=== PATIENT | female | born 1970 | race Caucasian/White ===

== ENCOUNTER 2019-08-24 11:53 | Observation (INO) | payer OTHER, SELFPAY ==
[2019-08-24] VITALS (18 sets, daily range): BP systolic 85–123; BP diastolic 55–73; PULSE 61–83; RESP 9–26; TEMP 36–36.4; O2SAT 96–100; BMI 29.5
--- NOTE | ~2019-08-24 | XR_ITS ---
EXAMINATION: XR chest 2V DATE: 08/24/2019 12:31 INDICATION: Chest pain TECHNIQUE: PA and lateral views of the chest are obtained. COMPARISON: None available FINDINGS: The lungs are free of acute opacities. There is no pleural effusion or pneumothorax. The ca rdiomediastinal silhouette is normal. Mid thoracic dextroscoliosis is noted. IMPRESSION: 1. No acute cardiopulmonary abnormality. Reviewed, dictated and finalized at location A.
--- NOTE | ~2019-08-24 | US_ITS ---
EXAMINATION: US right upper quadrant DATE: 08/24/2019 14:51 INDICATION: Pancreatitis TECHNIQUE: Multiple grayscale and Doppler ultrasound images of the abdomen were obtained. COMPARISON: None FINDINGS: The pancreatic head and body are normal in appearance. The pancreatic tail is secured by shadowing b owel gas. The visualized proximal inferior vena cava and aorta are normal. Liver has normal echogenic ity and contour, with a smooth surface. No liver lesion identified. No intrahepatic biliary duct dila tion suspected. Portal venous flow was seen in the hepatopetal, normal direction and has normal Doppl er waveform. The gallbladder is normal in appearance. There is no cholelithiasis. The common bile du ct measures 4-5 mm, which is normal. . Sonographic [place] sign was reported as negative by the sonogr apher. IMPRESSION: 1. Normal right upper quadrant ultrasound. Reviewed, dictated and finalized at location A.
--- NOTE | 2019-08-24 12:01 | ECG_ITS ---
Measurements Intervals [place] Rate: 67 P: 26 CA: 156 QRS: 19 QRSD: 94 T: 32 QT: 422 QTc: 447 Interpretive Statements SINUS RHYTHM INCOMPLETE RIGHT BUNDLE BRANCH BLOCK LOW QRS VOLTAGE IN PRECORDIAL LEADS BORDERLINE T WAVE ABNORMALITY- ANT/INF LEADS BASELINE WANDER- V3-V4 BORDERLINE ECG Electronically Signed On 08-24-2019 12:56:23 CDT by Gerry Garcia D.O.
[2019-08-24] MEDS: SODIUM CHLORIDE 0.9% IV 1,000 ML 999 ML IV CONT (12:15)
[2019-08-24 12:21] LABS: Basophils Absolute Auto 0.1 K/mm3 (0.0-0.1); Basophils Percent Auto 0.6 % (0.2-1.2); Eosinophils Absolute Auto 0.6 K/mm3 (0-0.3); Eosinophils Percent Auto 6.1 % (0-4.4); Hematocrit 40.7 % (37.0-47.0); Hemoglobin 13.6 g/dL (12.0-15.0); Immature Granulocyte Absolute 0.08 K/mm3 (0.00-0.031); Immature Granulocyte Percent A 0.9 % (0-0.5); Lymphocytes Percent Auto 42.7 % (18.3-44.2); Mean Corpuscular HGB Conc 33.4 g/dl (32-36); Mean Corpuscular Hemoglobin 29.1 pg (26-34); Mean Corpuscular Volume 87.2 fl (80-100); Mean Platelet Volume 8.8 fl (7.4-10.4); Monocytes Absolute Auto 0.8 K/mm3 (0.1-0.6); Neutrophils Absolute Auto 3.9 K/mm3 (1.3-6.7); Neutrophils Percent Auto 41.7 % (45.5-73.1); Platelet Count Result 454 k/mm3 (150-375); Red Blood Count 4.67 M/mm3 (4.2-5.4); Red Cell Distribution Width 11.7 % (11.5-14.5); White Blood Count 9.4 K/mm3 (4.5-10.0)
[2019-08-24 12:34] LABS: Prothrombin Time 13.3 Seconds (11.1-14.7)
[2019-08-24 12:35] LABS: Blood Urea Nitrogen 10 mg/dL (7-17); Calcium 9.5 mg/dL (8.4-10.2); Carbon Dioxide 26 mmol/L (22-30); Chloride 100 mmol/L (98-107); Estimated CRCL calculation 98 ml/min; Estimated Glomerular Filt Rate > 60; Glucose 118 mg/dL (65-105); Potassium 3.3 mmol/L (3.4-5.0); Sodium 137 mmol/L (137-145)
[2019-08-24 12:47] LABS: Troponin I < 0.012 ng/mL (0.000-0.034)
--- NOTE | 2019-08-24 13:06 | ED.CHESTPAIN ---
HPI - Chest Pain General Chief Complaint: Chest Pain Stated Complaint: Chest pain Time Seen by Provider: 08/24/19 12:00 History of Present Illness HPI narrative: Patient is a 48-year-old female who presents ER with sudden onset shortness of breath and chest pain. Began at 11 AM while she was at rest. Sharp and central radiating into her back. Comes in waves. Makes her diaphoretic and lightheaded. Has not had similar symptoms before. No burning reflux sensation. No association with eating or drinking. Had a surgery on her left wrist for carpal tunnel in November. No lower extremity swelling or cramping. No history of PE. Related Data Home Medications Medication Instructions Recorded Confirmed alprazolam 08/24/19 cetirizine mg 08/24/19 levothyroxine 112 mcg PO DAILY 08/24/19 08/24/19 losartan-hydrochlorothiazide tablet 08/24/19 magnesium 200 mg PO DAILY 08/24/19 08/24/19 montelukast [Singulair] 10 mg PO DAILY 08/24/19 08/24/19 rizatriptan mg 08/24/19 venlafaxine 150 mg PO DAILY 08/24/19 08/24/19 Allergies Allergy/AdvReac Type Severity Reaction Status Date / Time Penicillins Allergy Unknown Unknown Verified 08/24/19 12:05 Sulfa (Sulfonamide Allergy Unknown Unknown Verified 08/24/19 12:05 Antibiotics) tetracycline Allergy Unknown Unknown Verified 08/24/19 12:05 Review of Systems Review of Systems: All systems reviewed & are unremarkable except as noted in HPI and below Constitutional: Constitutional: Denies chills, Denies fever(s) and Denies weakness ENT: Denies nasal congestion and Denies sore throat Cardiovascular: Cardiovascular: Reports chest pain, Denies rapid heart rate and Denies radiating jaw, neck or arm pain Respiratory: Respiratory: Denies cough, Reports dyspnea and Denies wheezing Gastrointestinal: Gastrointestinal: Denies abdominal pain, Denies diarrhea, Reports nausea and Denies vomiting Neurologic: Reports dizziness, Denies syncope, Denies focal weakness and Denies numbness PMF Past Medical History Medical History (Updated 08/24/19 @ 15:28 by Dez Brown MD) Anxiety Depression Hypertension Hypothyroidism Surgical History Surgical History (Updated 08/24/19 @ 15:26 by Dez Brown MD) History of orthopedic surgery Social History Social History (Updated 08/24/19 @ 15:26 by Dez Brown MD) Smoking status: Never smoker Alcohol intake: never Gender identity (if verbalized by the patient): Female Exam Narrative: Exam Narrative: GENERAL: Well-appearing, well-nourished, and in no acute distress. HEAD: Normocephalic, atraumatic. CHEST: Clear to auscultation. No respiratory distress. HEART: Regular rate and rhythm. Normal peripheral pulses. ABDOMEN: Soft, nontender, nondistended, normal active bowel sounds. EXTREMITIES: Normal range of motion. No edema. SKIN: Warm, dry, no rash. NEURO: Alert and oriented x3. PSYCH: Normal mood and affect. Course Course Emergency Course: She is diaphoretic prior to arrival some hypotension. Blood pressures normalized. Pain-free however patient with significantly elevated lipase. Admit for observation and hydration. Vital Signs Vital signs: Vital Signs Temperature 97.6 F 08/24/19 11:57 Pulse Rate 61 08/24/19 11:57 Respiratory Rate 17 08/24/19 11:57 Blood Pressure 99/57 L 08/24/19 11:57 Pulse Oximetry 99 08/24/19 11:57 Temperature 97.6 F 08/24/19 11:57 Pulse Rate 72 08/24/19 14:16 Respiratory Rate 12 08/24/19 14:16 Blood Pressure 122/69 08/24/19 14:16 Pulse Oximetry 99 08/24/19 14:16 MDM - Chest Pain Lab Data Result diagrams: 08/24/19 12:13 08/24/19 12:13 Labs: Lab Results 08/24/19 08/24/19 08/24/19 Range/Units 12:12 12:12 12:13 WBC 9.4 (4.5-10.0) K/mm3 RBC 4.67 (4.2-5.4) M/mm3 Hgb 13.6 (12.0-15.0) g/dL Hct 40.7 (37.0-47.0) % MCV 87.2 (80-100) fl MCH 29.1 (26-34) pg MCHC 33.4 (32-36) g/dl
[2019-08-24 13:17] LABS: D Dimer 0.24 ug/mL (<0.48)
[2019-08-24 13:22] LABS: Alanine Aminotransferase 15 U/L (4-35); Albumin Level 4.4 g/dL (3.5-5.1); Alkaline Phosphatase 103 U/L (38-126); Aspartate Amino Transferase 26 U/L (14-36); Bilirubin,Total 0.3 mg/dL (0.2-1.3)
[2019-08-24 14:00] LABS: Lipase 20689 U/L (23-300)
[2019-08-24 15:40] LABS: Troponin I < 0.012 ng/mL (0.000-0.034)
--- NOTE | 2019-08-24 16:00 | PM.IMHP ---
H&P: HPI History of Present Illness Chief complaint: Epigastric pain. Narrative: Cara Montesinos is a 48-year-old female with hypertension, hypothyroidism, depression, anxiety, and migraine headaches who presented to the emergency department earlier today via private vehicle from home for evaluation of epigastric pain. She was in her usual state of health when she awoke this morning and not long prior to arrival she developed sudden onset of sharp pain in the center of her chest, radiating through to the back. Initially she blamed on severe indigestion for which she took [place] and Pepcid, without benefit. It seemed to come in waves of intensity and lasted for over an hour before it ceased, approximately 10 minutes after arrival to the emergency department, without analgesics. She gives no significant aggravating or alleviating factors. Associated symptoms included nausea, diaphoresis, and lightheadedness. She also felt a bit short of breath when the pain was severe. The pain has not recurred and she feels in her usual state of health at this time. She did not have breakfast or lunch, and is hungry at this time. It is noted that she was hospitalized in December 2000 with a very similar presentation, with an unremarkable workup. She has not had any recurrence of those symptoms until today. She has not had exertional chest pain or shortness of breath. She had severe nausea but no vomiting. No diarrhea and in fact she reports a normal bowel movement today. She has no previous history of pancreatitis. She denies alcohol consumption, as it tends to give her migraine headaches. No history of hypertriglyceridemia. Review of Systems Review of Systems: Narrative: Twelve systems were reviewed with pertinent positives and negatives as per HPI. She denies fever. She frequently suffers from migraine headaches, which she will typically take Fioricet although she does have a prescription for Triptan. No recent cold or flu symptoms. No cough. Weight has remained stable. No recent change in medications. Except as documented, all other systems were reviewed and are negative. [facility] Past Medical History Medical History (Updated 08/24/19 @ 16:26 by Karen Esteves PA-C) Depression with anxiety Hypertension Hypothyroidism Migraines Surgical History Surgical History (Updated 08/24/19 @ 22:15 by Karen Esteves PA-C) History of carpal tunnel release of both wrists History of section History of endometrial ablation (~11/2010) For menometrorrhagia. Family History Family History Mother Glaucoma Acute myocardial infarction Chronic obstructive pulmonary disease Diabetes mellitus Father Cerebrovascular accident Lung cancer Hypertension Sibling Asthma Sibling Cerebrovascular accident Social History Social History (Updated 08/24/19 @ 22:16 by Karen Esteves PA-C) Social History: The patient is and lives at home with her and their 2 children in [place]. 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 She smoked 1/2 a pack of cigarettes and quit in 1999. She very rarely will consume alcohol, and typically avoids it as it gives her migraines. No illicit substance use. Her , Hugo, is her surrogate decision maker and she wishes to be a full code. Gender identity (if verbalized by the patient): Female Spiritual care concerns: No Meds Home Medications and Allergies Home Medications Medication Instructions Recorded Confirmed Type alprazolam 0.5 mg PO BID PRN 08/24/19 08/24/19 History wjxghtlejp-fwqsijyvbivzs-zlsn 1 cap PO Q4-6H PRN 08/24/19 08/24/19 History cetirizine 10 mg PO DAILY 08/24/19 08/24/19 History cholecalciferol (vitamin D3) 50 mcg PO DAILY 08/24/19 08/24/19 History [Vitamin D3] levothyroxine 112 mcg PO DAILY 08/24/19 08/24/19 History losartan-hydrochlorothiazide 1 tablet PO DAILY 08/24/19
[2019-08-24] MEDS: SODIUM CHLORIDE 0.9% IV 1,000 ML 200 ML IV CONT ×2 (16:56→20:46)
--- NOTE | 2019-08-24 17:11 | ADMGEN ---
This patient, Cara Montesinos, was admitted to 2 Medical Room 258-. Patient/family oriented to hospital policies and general routines including ID bracelet, bed and alarms, visiting hours, pain management, procedures, bathroom and other care routines, personal items, smoking policy, room service/diet, and visiting hours. Valuables list has been completed. Information on how to activate the Rapid Response Team has been discussed. Patient/Family are encouraged to report perceived risks to care and to ask questions if they do not understand what they are told or what they should do.
[2019-08-24] MEDS: KCL 20 MEQ/SW 100 ML 100 ML 50 MEQ IVPB (17:24)
[2019-08-24 18:51] LABS: Troponin I < 0.012 ng/mL (0.000-0.034)
--- NOTE | 2019-08-24 19:10 | PHAR ---
HOME MEDICATIONS VERIFIED BY PHARMACY: LEVOTHYROXINE 112 MCG TABLET 1 TAB PO DAILY 2 [employer] - SAME MED RX#[id number] VENLAFAXINE 150MG ER TABLETS 1 TABLET PO ONCE DAILY WITH FOOD RX#[id number]
[2019-08-24 20:27] LABS: Alanine Aminotransferase 24 U/L (4-35); Albumin Level 3.9 g/dL (3.5-5.1); Alkaline Phosphatase 92 U/L (38-126); Aspartate Amino Transferase 34 U/L (14-36); Bilirubin,Total 0.3 mg/dL (0.2-1.3); Potassium 4.4 mmol/L (3.4-5.0); Triglycerides 81 mg/dL (<150)
[2019-08-24] MEDS: ALPRAZolam 0.5 MG TABLET PO (20:45)
[2019-08-24 20:50] LABS: Lipase 5711 U/L (23-300)
[2019-08-24] MEDS: MONTELUKAST SODIUM 10 MG TABLET PO (21:22)
[2019-08-25] MEDS: SODIUM CHLORIDE 0.9% IV 1,000 ML 100 ML IV CONT ×2 (02:04→05:57)
[2019-08-25 05:28] LABS: Hematocrit 34.5 % (37.0-47.0); Hemoglobin 11.4 g/dL (12.0-15.0); Mean Corpuscular Hemoglobin 29.6 pg (26-34); Mean Corpuscular Volume 89.6 fl (80-100); Mean Platelet Volume 8.9 fl (7.4-10.4); Platelet Count Result 356 k/mm3 (150-375); Red Blood Count 3.85 M/mm3 (4.2-5.4); Red Cell Distribution Width 11.8 % (11.5-14.5); White Blood Count 9.4 K/mm3 (4.5-10.0)
[2019-08-25 05:44] LABS: Alanine Aminotransferase 20 U/L (4-35); Albumin Level 3.6 g/dL (3.5-5.1); Alkaline Phosphatase 81 U/L (38-126); Aspartate Amino Transferase 28 U/L (14-36); Bilirubin,Total 0.3 mg/dL (0.2-1.3); Blood Urea Nitrogen 7 mg/dL (7-17); Calcium 8.3 mg/dL (8.4-10.2); Carbon Dioxide 26 mmol/L (22-30); Chloride 108 mmol/L (98-107); Estimated CRCL calculation 99 ml/min; Estimated Glomerular Filt Rate > 60; Glucose 89 mg/dL (65-105); Lipase 1071 U/L (23-300); Potassium 4.2 mmol/L (3.4-5.0); Sodium 137 mmol/L (137-145)
[2019-08-25 06:00] VITALS: BP 131/60; PULSE 72; RESP 16; TEMP 35.9; O2SAT 98
[2019-08-25] MEDS: LEVOTHYROXINE SODIUM 112 MCG TABLET PO (06:08)
[2019-08-25] MEDS: LORATADINE 10 MG TABLET PO (08:17)
[2019-08-25 14:00] VITALS: BP 122/57; PULSE 81; RESP 18; TEMP 36.3; O2SAT 100
--- NOTE | 2019-08-25 16:29 | PM.DS ---
DS: Admitting Diagnosis Admitting Diagnosis Admitting Diagnosis: Acute pancreatitis without necrosis or infection, unspecified DS: Discharge Diagnosis Discharge Diagnosis (1) Acute pancreatitis: Code(s): K85.90 - Acute pancreatitis without necrosis or infection, unspecified Status: Acute Assessment and Plan: Patient presented with sharp epigastric radiating to the back with nausea. She has no history of pancreatitis and she denies alcohol use. Triglycerides were wnl. RUQ US revealed a normal pancreas and no cholelithiasis. Her home medications were reviewed and it is possible, although unlikely given the low dose and normal triglycerides, that her HCTZ may have resulted in medication induced pancreatitis. Lipase improved from 20,689 to 1071. She advanced her diet to low fat and tolerated it well. Her pain resolved. (2) Hypokalemia: Code(s): E87.6 - Hypokalemia Status: Acute Assessment and Plan: Potassium was monitored and replaced. Levels stabilized. Magnesium was WNL. (3) Hypertension: Code(s): I10 - Essential (primary) hypertension Status: Acute Assessment and Plan: She was hypotensive on arrival to the emergency department, likely due to vagal response from pain. Blood pressures improved with IV fluid rehydration and pain control. Her antihypertensives were initially held but resumed upon stabilization of BP. I recommended that she monitor her BP at home and record for review by PCP. (4) Hypothyroidism: Code(s): E03.9 - Hypothyroidism, unspecified Status: Acute Assessment and Plan: TSH was WNL. Continue levothyroxine. (5) Depression with anxiety: Code(s): F41.8 - Other specified anxiety disorders Status: Acute Assessment and Plan: Chronic and stable. Continue venlafaxine and alprazolam. DS: Summary Hospital Course Reason for hospitalization: Epigastric pain Hospital Course: Date of admission: 08/24/2019 Date of discharge: 08/25/2019 Cara Montesinos is a 48 year old female with hypertension, hypothyroidism, depression, anxiety, and migraine headaches who presented to the emergency department on 08/24/2019 with complaints of epigastric pain of suddent onset which was sharp in the center of her chest and radiated through to her back with associated nausea, diaphoresis, and lightheadedness. Upon presentation, AVSS, WBC 9.4, K 3.3, glucose 118, AST 26, ALT 15, ALP 103, lipase 20918, troponin <0.012, CXR with no acute cardiopulmonary findings, and normal RUQ US. She was admitted to the hospitalist service. Her pain resolved. Her lipase declined. She was able to advance her diet. Given this symptomatic improvement, she was determined to no longer require inpatient care. She was comfortable with discharge home. We discussed worrisome signs and symptoms for which to return as well as proper follow up. She was discharged in hemodynamically stable condition on the afternoon of 09/03/2019. Please see above for further details. Status at Discharge Functional status at discharge: independent ambulation Overall status at discharge: patient is back to baseline Time Spent with Patient Time attestation: Total time spent providing and/or coordinating discharge services:39 minutes Time spent: Greater than 30 minutes Exam Narrative: Exam Narrative: Ms. Montesinos is examined today in the presence of her . She is a well nourished 48 year old female who is lying supine in bed. She appears comfortable and is in NARD. HR 81, BP 122/57, RR 18, T 97.4, 100% on room air Neuro: awake, alert and oriented x4, speech clear, no focal neuro deficits noted HEENMT: normocephalic, atraumatic, EOMI, sclerae anicteric, moist oral mucosa, tongue midline Neck: supple, no lymphadenopathy Respiratory: clear to auscultation bilaterally, nonlabored breathing Cardio: regular rate, regular rhythm with S1-S2 Abdomen: flat, normoactive bowel sounds, soft, nont
== END 2019-08-25 16:57 | disposition home or self-care (01) ==
LOC: ANHED 15:28 → ANH2MED 15:39
PROVIDERS: Physician Assistant; Admitting Provider Internal Medicine; Emergency Provider Emergency Medicine; PCP Family Medicine; Visit Provider Physician Assistant
DX: K85.90 Acute pancreatitis without necrosis or infection, unspecified (principal); E87.6 Hypokalemia; I10 Essential (primary) hypertension; R06.02 Shortness of breath; E03.9 Hypothyroidism, unspecified; F41.8 Other specified anxiety disorders; Z87.891 Personal history of nicotine dependence
CPT/HCPCS: 36415; 71046; 76705; 80048; 80053; 80076; 83690; 83735; 84132; 84443; 84478; 84484; 85025; 85027; 85380; 85610; 85730; 93005; 96360; 96361; 96365; 96366; 96375; 99285; A9270; G0378; J0131; J3480; J7030

== ENCOUNTER 2019-11-10 10:41 | Inpatient (IN) | payer OTHER, SELFPAY ==
[2019-11-10] VITALS (8 sets, daily range): BP systolic 91–129; BP diastolic 50–65; PULSE 50–71; RESP 12–18; TEMP 36.6–36.9; O2SAT 97–100
--- NOTE | ~2019-11-10 | CT_ITS ---
EXAMINATION: CT abdomen pelvis w con DATE: 11/10/2019 13:10 INDICATION: Upper abdominal pain. History of pancreatitis. TECHNIQUE: Computed tomography (CT) of the abdomen and pelvis was performed with 100 cc Omnipaque 350 intravenous contrast. The dose-length product was 488.03 mGy-cm. Automated exposure control and iter ative reconstruction technique were employed. COMPARISON: CT dated 03/18/2004. FINDINGS: There is left lower lobe atelectasis. Heart size normal. No significant pleural or pericard ial effusion. There is diffuse thickening of the pancreas with moderate surrounding phlegmonous paige e and fluid, consistent with acute pancreatitis. No evidence for abscess or perforation. There is thi ckening of the adjacent small bowel, likely secondary to inflammation of the pancreas. No obstruction . The liver, spleen, adrenal glands and kidneys are unremarkable. Normal appendix. There is a 4.7 cm le ft ovarian cyst. No significant vascular abnormality. No lymphadenopathy. No significant bone or join t abnormality. IMPRESSION: 1. Acute pancreatitis. 2: Left ovarian cyst measuring 4.7 cm. Reviewed, dictated and finalized at location A.
--- NOTE | ~2019-11-10 | MR_ITS ---
EXAMINATION: MR MRCP wo/w con/w 3D wo ind DATE: 11/12/2019 07:07 INDICATION: Recurrent pancreatitis. TECHNIQUE: Magnetic resonance imaging (MRI) of the abdomen was performed without and with 14 mL Multi Brayan intravenous contrast. Sequences included coronal T2-weighted FS FSE, coronal T2-weighted FSE, a xial T1-weighted LAVA, coronal FS FIESTA, axial dual-echo T1-weighted SPGR, coronal lava-FLEX, sagitt al T2-weighted FSE, axial T2-weighted FSE, and axial DWI. Thick-slab T2-weighted FSE images were obta ined for magnetic resonance cholangiopancreatography (MRCP). Maximum intensity projection 3-D reconst ructions of the volumetric data were created by the technologist. Postcontrast sequences included cor onal LAVA-flex and time course of axial T1-weighted LAVA. COMPARISON: CT abdomen and pelvis 11/10/2019 FINDINGS: ABDOMEN MRI: There are small pleural effusions. The liver, gallbladder, spleen, adrenal glands, and k idneys are normal. There is edema in the retroperitoneum centered at the pancreas, consistent with ac chari interstitial pancreatitis. There is a small volume of ascites. There are no pathologically enlarg ed lymph nodes. There is a 4.0 cm hemorrhagic cyst of left ovary. ABDOMEN MRCP: The common duct is normal and measures 3 mm. No choledocholithiasis. IMPRESSION: 1. Acute interstitial pancreatitis. 2. Normal biliary tree. No choledocholithiasis. 3. Small volume of ascites. 4. Small pleural effusions. 5. 4.0 cm hemorrhagic cyst of left ovary. Reviewed, dictated and finalized at location A.
--- NOTE | ~2019-11-10 | XR_ITS ---
EXAMINATION: XR chest 2V 11/10/2019 11:14 INDICATION: Midline chest pain and shortness of breath PROCEDURE: AP and lateral views of the chest COMPARISON: 08/24/2019 FINDINGS: The lungs are clear. The cardiomediastinal silhouette is within normal limits. There are no pleural effusions. There is no pneumothorax suspected. There is dextroscoliosis of the thoracic spine. IMPRESSION: 1: NO ACUTE CARDIOPULMONARY DISEASE. Reviewed, dictated and finalized at location A.
--- NOTE | 2019-11-10 10:56 | ECG_ITS ---
Measurements Intervals [place] Rate: 59 P: 30 [place]: 158 QRS: 30 QRSD: 89 T: 12 QT: 434 QTc: 433 Interpretive Statements SINUS BRADYCARDIA BORDERLINE ST-T WAVE ABNORMALITY- DIFFUSE LEADS BASELINE WANDER- I, II, III, AVR, AVL, AVF, V1-V6 BORDERLINE ECG Electronically Signed On 11-10-2019 11:01:22 CDT by Gerry Garcia D.O.
--- NOTE | 2019-11-10 11:03 | ED.ABDPAIN ---
HPI - Abdominal Pain General Chief Complaint: Abdominal Pain <HOMA Ramos Last Filed: 11/10/19 14:36> Stated Complaint: abd pain, pancreatitis flare per pt <HOMA Ramos Last Filed: 11/10/19 14:36> Time Seen by Provider: 11/10/19 10:54 <HOMA Ramos Last Filed: 11/10/19 14:36> Source: patient <HOMA Ramos Last Filed: 11/10/19 14:36> Mode of arrival: ambulatory <HOMA Ramos Last Filed: 11/10/19 14:36> Limitations: no limitations <HOMA Ramos Last Filed: 11/10/19 14:36> History of Present Illness HPI narrative: This is a 49-year-old female that presents the emergency department for abdominal/chest pain x1 hour. Reports an episode of pancreatitis a couple of months ago and that this is what she felt like then. Reports this pain is stabbing. Associated with shortness of breath and nausea. Denies fever, cough, vomiting, dysuria, hematuria. <HOMA Ramos Last Filed: 11/10/19 14:36> Related Data Home Medications: Home Medications Medication Instructions Recorded Confirmed alprazolam 0.5 mg PO BID PRN 08/24/19 08/24/19 cetirizine 10 mg PO DAILY 08/24/19 08/24/19 cholecalciferol (vitamin D3) 50 mcg PO DAILY 08/24/19 08/24/19 [Vitamin D3] levothyroxine 112 mcg PO DAILY 08/24/19 08/24/19 magnesium 400 mg PO DAILY 08/24/19 08/24/19 montelukast [Singulair] 10 mg PO DAILY 08/24/19 08/24/19 rizatriptan 10 mg PO PRN 08/24/19 08/24/19 venlafaxine 150 mg PO DAILY 08/24/19 08/24/19 erenumab-aooe [Aimovig mg SUBCUT 11/10/19 Autoinjector] riboflavin (vitamin B2) 400 mg PO DAILY 11/10/19 <Catherine Temple PA-C - Last Filed: 11/10/19 14:36> Allergies/Adverse Reactions: Allergies Allergy/AdvReac Type Severity Reaction Status Date / Time Penicillins Allergy Unknown Unknown Verified 11/10/19 10:59 Sulfa (Sulfonamide Allergy Unknown Unknown Verified 11/10/19 10:59 Antibiotics) tetracycline Allergy Unknown Unknown Verified 11/10/19 10:59 <Catherine Temple PA-C - Last Filed: 11/10/19 14:36> Review of Systems Review of Systems: Narrative: CONSTITUTIONAL: Denies fever CARDIOVASCULAR: Reports chest pain. Denies edema. RESPIRATORY: Reports dyspnea. Denies cough GASTROINTESTINAL: Reports abdominal pain, nausea. Denies vomiting, or diarrhea. GENITOURINARY: Denies dysuria or hematuria. <Catherine Temple PA-C - Last Filed: 11/10/19 14:36> All systems reviewed & are unremarkable except as noted in HPI and below <Catherine Temple PA-C - Last Filed: 11/10/19 14:36> [facility] Past Medical History Medical History: Medical History (Updated 11/10/19 @ 14:33 by Catherine Temple PA-C) Depression with anxiety Hypertension Hypothyroidism Migraines <Catherine Temple PA-C - Last Filed: 11/10/19 14:36> Surgical History Surgical History: Surgical History (Updated 08/24/19 @ 22:15 by Karen Esteves PA-C) History of carpal tunnel release of both wrists History of section History of endometrial ablation (~11/2010) For menometrorrhagia. <Catherine Temple PA-C - Last Filed: 11/10/19 14:36> Social History Social History: Social History (Updated 08/24/19 @ 22:16 by Karen Esteves PA-C) Social History: The patient is and lives at home with her and their 2 children in [place]. 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 She very rarely will consume alcohol, and typically avoids it as it gives her migraines. No illicit substance use. Her , Hugo, is her surrogate decision maker and she wishes to be a full code. Gender identity (if verbalized by the patient): Female Spiritual care concerns: No <Catherine Temple PA-C - Last Filed: 11/10/19 14:36> Exam Narrative: Exam Narrative: GENERAL: Well-appearing, well-nourished, and in mild acute distress due to pain. HEAD: Normo
[2019-11-10] MEDS: SODIUM CHLORIDE 0.9% IV 1,000 ML 999 ML IV CONT ×2 (11:19→12:55)
[2019-11-10] MEDS: ONDANSETRON INJ 4 MG/2 ML VIAL IV PUSH ×2 (11:19→20:40)
--- NOTE | 2019-11-10 11:21 | PC.NURSE ---
Patient refusing straight cath at this time, states will go to restroom and try after pain medicine works.
[2019-11-10 11:25] LABS: Basophils Absolute Auto 0.1 K/mm3 (0.0-0.1); Basophils Percent Auto 0.7 % (0.2-1.2); Eosinophils Absolute Auto 0.5 K/mm3 (0-0.3); Hematocrit 40.7 % (37.0-47.0); Immature Granulocyte Absolute 0.02 K/mm3 (0.00-0.031); Immature Granulocyte Percent A 0.2 % (0-0.5); Lymphocytes Absolute Auto 4.01 K/mm3 (0.9-3.2); Lymphocytes Percent Auto 48.8 % (18.3-44.2); Mean Corpuscular HGB Conc 34.4 g/dl (32-36); Mean Corpuscular Hemoglobin 29.7 pg (26-34); Mean Corpuscular Volume 86.4 fl (80-100); Mean Platelet Volume 9.1 fl (7.4-10.4); Monocytes Absolute Auto 0.7 K/mm3 (0.1-0.6); Neutrophils Percent Auto 36.3 % (45.5-73.1); Platelet Count Result 473 k/mm3 (150-375); Red Blood Count 4.71 M/mm3 (4.2-5.4); Red Cell Distribution Width 11.9 % (11.5-14.5); White Blood Count 8.2 K/mm3 (4.5-10.0)
[2019-11-10 11:34] LABS: Prothrombin Time 12.7 Seconds (11.1-14.7)
[2019-11-10 11:35] LABS: Partial Thromboplastin Time 27.3 SECONDS (22.3-36.8)
[2019-11-10 11:48] LABS: Troponin I < 0.012 ng/mL (0.000-0.034)
[2019-11-10 12:46] LABS: Alanine Aminotransferase 77 U/L (4-35); Albumin Level 3.9 g/dL (3.5-5.1); Alkaline Phosphatase 101 U/L (38-126); Anion Gap 5 mmol/L (8-16); Aspartate Amino Transferase 146 U/L (14-36); Bilirubin,Total 0.7 mg/dL (0.2-1.3); Blood Urea Nitrogen 10 mg/dL (7-17); Calcium 8.3 mg/dL (8.4-10.2); Carbon Dioxide 24 mmol/L (22-30); Chloride 105 mmol/L (98-107); Estimated CRCL calculation 82 ml/min; Estimated Glomerular Filt Rate > 60; Glucose 102 mg/dL (65-105); Sodium 134 mmol/L (137-145)
[2019-11-10 12:48] LABS: Add Urine Microscopic? YES; Appearance Urine Clear (Clear); Bilirubin Urine Negative (Negative); Blood Urine Negative (Negative); Color Urine Yellow (Yellow); Glucose Urine UA Negative (Negative); Ketones Urine Negative (Negative); Leukocyte Esterase Ur Trace LEU/UL (Negative); Mucus Urine Rare /lpf; Nitrate Urine Negative (Negative); Protein Urine 1+ mg/dL (Negative); Specific Grav Ur 1.028 (1.001-1.035); Squamous Epithelial Cell Urine Few /hpf (Few); Urobilinogen Urine Negative mg/dL (<2.0)
[2019-11-10] MEDS: PROMETHAZINE HCL 25 MG/ML AMPUL 12.5 MG IV PUSH (12:55)
[2019-11-10] MEDS: KETOROLAC 30 MG/ML VIAL (*BKC) IV PUSH (12:55)
[2019-11-10 15:24] LABS: Lipase > 40000 U/L (23-300)
--- NOTE | 2019-11-10 16:29 | ADMGEN ---
This patient, Cara Montesinos, was admitted to 3 [facility] Surg Room 307-01. Patient/family oriented to hospital policies and general routines including ID bracelet, bed and alarms, visiting hours, pain management, procedures, bathroom and other care routines, personal items, smoking policy, room service/diet, and visiting hours. Valuables list has been completed. Information on how to activate the Rapid Response Team has been discussed. Patient/Family are encouraged to report perceived risks to care and to ask questions if they do not understand what they are told or what they should do.
[2019-11-10] MEDS: SODIUM CHLORIDE 0.9% IV 1,000 ML 125 ML IV CONT (16:37)
--- NOTE | 2019-11-10 20:20 | PM.IMHP ---
H&P: HPI History of Present Illness Date/Time: 11/10/19 20:20 Chief complaint: Pancreatitis Narrative: This is a pleasant 49-year-old female with known history of hypothyroidism, hypertension, and depression who was recently admitted to our hospital in August with acute pancreatitis and who returned to the hospital today with a complaint of epigastric abdominal pain that started today. The patient's abdominal pain started this morning when she woke up and she did not eat anything today. The patient felt nauseated but denied any vomiting. She also denies any fever, chills, chest pain, shortness of breath, diarrhea, rectal bleeding, dysuria, or hematuria. workup in the ER today demonstrated a lipase greater than 40,000. CT abdomen pelvis revealed diffuse thickening of the pancreas with moderate surrounding phlegmonous change and fluid, consistent with acute pancreatitis. During the patient's last hospitalization she underwent ultrasound of her right upper quadrant which demonstrated a normal gallbladder and no cholelithiasis. It was thought during that hospitalization that her acute pancreatitis may have been secondary to hydrochlorothiazide use. The patient denies any alcohol use, abdominal trauma, or new medications. No other complaints. Review of Systems Review of Systems: All systems reviewed & are unremarkable except as noted in HPI and below PMFSH Past Medical History Medical History Depression with anxiety Hypertension Hypothyroidism Migraines Surgical History Surgical History History of carpal tunnel release of both wrists History of section History of endometrial ablation (~11/2010) For menometrorrhagia. Family History Family History Mother Glaucoma Acute myocardial infarction Chronic obstructive pulmonary disease Diabetes mellitus Father Cerebrovascular accident Lung cancer Hypertension Sibling Asthma Sibling Cerebrovascular accident Social History Social History Social History: The patient is and lives at home with her and their 2 children in [place]. 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 She very rarely will consume alcohol, and typically avoids it as it gives her migraines. No illicit substance use. Her , Hugo, is her surrogate decision maker and she wishes to be a full code. Smoking packs per day: 0.5 Smoking cigarettes per day: 10.0 Smoking status: Former smoker Tobacco type: cigarettes Smoking end date: 02/28/94 Alcohol intake: never Gender identity (if verbalized by the patient): Female Spiritual care concerns: No Meds Home Medications and Allergies Home Medications Medication Instructions Recorded Confirmed Type alprazolam 0.5 mg PO BID PRN 08/24/19 11/10/19 History cetirizine 10 mg PO DAILY 08/24/19 11/10/19 History cholecalciferol (vitamin D3) 50 mcg PO DAILY 08/24/19 11/10/19 History [Vitamin D3] levothyroxine 112 mcg PO DAILY 08/24/19 11/10/19 History magnesium 400 mg PO DAILY 08/24/19 11/10/19 History montelukast [Singulair] 10 mg PO DAILY 08/24/19 11/10/19 History rizatriptan 10 mg PO PRN 08/24/19 11/10/19 History venlafaxine 150 mg PO DAILY 08/24/19 11/10/19 History erenumab-aooe [Aimovig 140 mg SUBCUT MONTHLY 11/10/19 11/10/19 History Autoinjector] riboflavin (vitamin B2) 400 mg PO DAILY 11/10/19 11/10/19 History Allergies Allergy/AdvReac Type Severity Reaction Status Date / Time Penicillins Allergy Unknown Unknown Verified 11/10/19 10:59 Sulfa (Sulfonamide Allergy Unknown Unknown Verified 11/10/19 10:59 Antibiotics) tetracycline Allergy Unknown Unknown Verified 11/10/19 10:59 Vital Signs Vital Signs - 24 hr
[2019-11-10] MEDS: HYDROmorphone HCL INJ (*CRX) 1 MG/ML SYR 0.5 MG IV PUSH (20:40)
[2019-11-11 05:30] VITALS: BP 139/62; PULSE 86; RESP 16; TEMP 36.9; O2SAT 98
[2019-11-11] MEDS: SODIUM CHLORIDE 0.9% IV 1,000 ML 125 ML IV CONT (05:51)
[2019-11-11] MEDS: LEVOTHYROXINE SODIUM INJ 100 MCG/5 ML VIAL 56 MCG IV PUSH (05:54)
[2019-11-11] MEDS: KETOROLAC 30 MG/ML VIAL (*BKC) IV PUSH (05:57)
[2019-11-11 06:39] LABS: Basophils Percent Auto 0.3 % (0.2-1.2); Eosinophils Absolute Auto 0.2 K/mm3 (0-0.3); Eosinophils Percent Auto 1.8 % (0-4.4); Hematocrit 37.8 % (37.0-47.0); Hemoglobin 12.5 g/dL (12.0-15.0); Immature Granulocyte Absolute 0.06 K/mm3 (0.00-0.031); Immature Granulocyte Percent A 0.6 % (0-0.5); Lymphocytes Absolute Auto 1.85 K/mm3 (0.9-3.2); Lymphocytes Percent Auto 18.2 % (18.3-44.2); Mean Corpuscular HGB Conc 33.1 g/dl (32-36); Mean Corpuscular Hemoglobin 29.8 pg (26-34); Mean Platelet Volume 9.3 fl (7.4-10.4); Monocytes Absolute Auto 0.6 K/mm3 (0.1-0.6); Neutrophils Absolute Auto 7.5 K/mm3 (1.3-6.7); Neutrophils Percent Auto 73.1 % (45.5-73.1); Platelet Count Result 365 k/mm3 (150-375); Red Cell Distribution Width 12.4 % (11.5-14.5); White Blood Count 10.2 K/mm3 (4.5-10.0)
[2019-11-11 06:52] LABS: Anion Gap 1 mmol/L (8-16); Blood Urea Nitrogen 8 mg/dL (7-17); Calcium 7.5 mg/dL (8.4-10.2); Carbon Dioxide 26 mmol/L (22-30); Chloride 108 mmol/L (98-107); Cholesterol 190 mg/dL (0-200); Estimated CRCL calculation 94 ml/min; Estimated Glomerular Filt Rate > 60; Glucose 105 mg/dL (65-105); HDL Direct 42 mg/dL; Magnesium 2.1 mg/dL (1.6-2.3); Potassium 3.8 mmol/L (3.4-5.0); Sodium 135 mmol/L (137-145); Triglycerides 102 mg/dL (<150)
[2019-11-11 07:03] LABS: LDL Cholesterol Direct 112 mg/dL
[2019-11-11 07:56] LABS: Alanine Aminotransferase 93 U/L (4-35); Alkaline Phosphatase 91 U/L (38-126); Anion Gap 0 mmol/L (8-16); Aspartate Amino Transferase 78 U/L (14-36); Bilirubin,Total 0.3 mg/dL (0.2-1.3); Blood Urea Nitrogen 9 mg/dL (7-17); Calcium 7.7 mg/dL (8.4-10.2); Carbon Dioxide 26 mmol/L (22-30); Chloride 109 mmol/L (98-107); Estimated CRCL calculation 94 ml/min; Estimated Glomerular Filt Rate > 60; Glucose 107 mg/dL (65-105); Potassium 3.9 mmol/L (3.4-5.0); Sodium 135 mmol/L (137-145)
[2019-11-11 08:05] LABS: Lipase 5845 U/L (23-300)
[2019-11-11 08:58] VITALS: BP 137/66; PULSE 67; RESP 18; O2SAT 97
[2019-11-11] MEDS: LACTATED RINGERS 1,000 ML 125 ML IV CONT ×2 (08:59→17:39)
--- NOTE | 2019-11-11 12:38 | WPDGICN ---
Assessment and Plan Assessment and plan (1) Acute pancreatitis: Qualifiers: Acute pancreatitis complication: no infection or necrosis Pancreatitis type: unspecified pancreatitis type Qualified Code(s): K85.90 - Acute pancreatitis without necrosis or infection, unspecified Code(s): K85.90 - Acute pancreatitis without necrosis or infection, unspecified Status: Acute Assessment and Plan: no clear etiology to explain pancreatitis will check MRCP to check if any anomalies in pancreas, also check if microlithiasis, etc (2) Upper abdominal pain: Code(s): R10.10 - Upper abdominal pain, unspecified Status: Acute Assessment and Plan: improved with pain meds, npo for now (3) Elevated liver enzymes: Code(s): R74.8 - Abnormal levels of other serum enzymes Status: Acute Assessment and Plan: probably from acute pancreatitis continue to monitor will check also hepatitis panel (4) Depression with anxiety: Code(s): F41.8 - Other specified anxiety disorders Status: Chronic (5) Hypothyroidism: Qualifiers: Hypothyroidism type: unspecified Qualified Code(s): E03.9 - Hypothyroidism, unspecified Code(s): E03.9 - Hypothyroidism, unspecified Status: Chronic GI Consult Note Consult date/time: 11/11/19 12:38 Reason for consult: recurrent pancreatitis HPI: Cara Montesinos is a 49 year old female with history of hypothyroidism, hypertension, and depression on velafaxine with most recent hospitalization in August with acute pancreatitis without definitive etiology (denies etoh use, ultrasound was normal, TG level normal and no history of GB disease). She was discharged with indication to have low fat diet. She has been doing ok until day of admission when she had again severe pain in epigastric along with nausea. ER blood work with lipase greater than 40,000. CT abdomen pelvis revealed diffuse thickening of the pancreas with moderate surrounding phlegmonous change and fluid, consistent with acute pancreatitis. Last time liver enzymes were normal but this admission transaminases 70-140, normal bili and AP. She says that had colonoscopy about 15 years ago when she had GI issues. Review of Systems Constitutional: Constitutional: Denies headache(s) and Denies weakness Eyes: Eyes: Denies blurry vision ENT: Reports Normal hearing present, Denies headache(s) and Denies neck pain Cardiovascular: Cardiovascular: Denies chest pain and Denies dyspnea Respiratory: Respiratory: Denies dyspnea Gastrointestinal: Gastrointestinal: Reports no additional gastrointestinal complaints Genitourinary: Genitourinary: Denies dysuria Musculoskeletal: Musculoskeletal: Denies neck pain Integumentary/Breasts: Skin/Breast: Denies dry skin Neurologic: Reports Normal hearing present, Denies headache(s) and Denies weakness Psychiatric: Psychiatric: Denies anxiety Endocrine: Endocrine: Denies change in body appearance Hematologic/Lymphatic: Hematologic/Lymphatic: Denies easy bleeding Allergic/Immunologic: Allergic/Immunologic: Denies urticaria PMFSH Past Medical History Medical History Depression with anxiety Hypertension Hypothyroidism Migraines Surgical History Surgical History History of carpal tunnel release of both wrists History of section History of endometrial ablation (~11/2010) For menometrorrhagia. Family History Family History Mother Glaucoma Acute myocardial infarction Chronic obstructive pulmonary disease Diabetes mellitus Father Cerebrovascular accident Lung cancer Hypertension Sibling Asthma Sibling Cerebrovascular accident Social History Social History Social History: The patient is and
--- NOTE | 2019-11-11 13:20 | PM.IMPN ---
Progress Note: A&P Assessment and Plan (1) Acute pancreatitis: Qualifiers: Acute pancreatitis complication: no infection or necrosis Pancreatitis type: unspecified pancreatitis type Qualified Code(s): K85.90 - Acute pancreatitis without necrosis or infection, unspecified Code(s): K85.90 - Acute pancreatitis without necrosis or infection, unspecified Status: Acute Assessment and Plan: Etiology unclear. She does not drink alcohol. This is the patient's second episode. CT abd/pelvis demonstrated pancreatitis with no evidence of abscess or perforation. Lipase >40,000. She had an episode of pancreatitis 08/2019. GI was consulted for further recommendations given recurrent pancreatitis. Lipid panel demonstrates triglycerides of 102, LDL 112, HDL 42. Lipase has improved to 5845 today. Continue NPO, bowel rest, and IV hydration. Continue analgesics and antiemetics PRN. Monitor lipase, CMP, CBC daily. Appreciate GI input. Plan for MRCP tomorrow. (2) Elevated liver enzymes: Code(s): R74.8 - Abnormal levels of other serum enzymes Status: Acute Assessment and Plan: Likely secondary to acute pancreatitis. Continue to monitor. Hepatitis panel was ordered and pending. Liver was unremarkable on CT abd/pelvis. She also had RUQ US 08/2019 which showed normal echogenicity and contour, with a smooth surface and no liver lesion identified. (3) Hypertension: Qualifiers: Hypertension type: unspecified Qualified Code(s): I10 - Essential (primary) hypertension Code(s): I10 - Essential (primary) hypertension Status: Chronic Assessment and Plan: Blood pressures were reviewed and reasonably well-controlled. She is not on any antihypertensives prior to admission. Most recent BP is 156/79. Continue to monitor. (4) Hypothyroidism: Qualifiers: Hypothyroidism type: unspecified Qualified Code(s): E03.9 - Hypothyroidism, unspecified Code(s): E03.9 - Hypothyroidism, unspecified Status: Chronic Assessment and Plan: Continue IV levothyroxine and resume PO levothyroxine when clinically appropriate. (5) Depression with anxiety: Code(s): F41.8 - Other specified anxiety disorders Status: Chronic Assessment and Plan: Resume venlafaxine. (6) Ovarian cyst: Code(s): N83.209 - Unspecified ovarian cyst, unspecified side Status: Acute Assessment and Plan: 4.7cm ovarian cyst visualized on CT abd/pelvis. She is asymptomatic. Time Spent With Patient Time with patient: 25 - 35 minutes Subjective Date/time seen: 11/11/19 13:20 Mrs. Montesinos is a 49 y.o. female with PMH significant for hypertension, hypothyroidism, migraines, and depression with anxiety who is seen in follow-up for acute pancreatitis. She requests her venlafaxine as she reports that she gets very anxious and upset when she does not have this. Her pain has improved significantly today. She is still having some LUQ pain which radiates to the left side and back. She denies nausea and vomiting. She has a migraine and has requests tylenol. She is passing gas. Her last bowel movement was Tuesday night and she has not had anything to eat since Tuesday due to her severe pain. She has no other conerns. She denies chest pain and dyspnea. Review of Systems Review of Systems: All systems reviewed & are unremarkable except as noted in HPI and below Exam Narrative: Exam Narrative: General: Very pleasant, well-developed, and well-nourished 49 y.o. female lying semi-recumbent in bed in no acute distress. HEENT: Normocephalic and atraumatic. Sclerae anicteric. Conjunctivae without injection or exudate. PERRL. EOMI. Oral mucosa moist. Neck: Supple. Cardiac: Regular rate and rhythm. S1 and S2 normal. Lungs: Effort normal. Lungs are clear to auscultation bilaterally. Abdomen: Bowel sounds are normoactive. Abdomen is soft, non-distended, and te
[2019-11-11 14:00] VITALS: BP 156/79; PULSE 99; RESP 20; TEMP 37.1; O2SAT 98
[2019-11-11] MEDS: VENLAFAXINE HCL XR 75 MG CAP.ER.24H 150 MG PO (16:43)
[2019-11-11 22:00] VITALS: BP 136/72; PULSE 88; RESP 18; TEMP 36.7; O2SAT 97
[2019-11-12] MEDS: LACTATED RINGERS 1,000 ML 125 ML IV CONT ×2 (02:46→11:03)
[2019-11-12] MEDS: LEVOTHYROXINE SODIUM INJ 100 MCG/5 ML VIAL 56 MCG IV PUSH (05:30)
[2019-11-12 05:51] VITALS: BP 141/74; PULSE 91; RESP 18; TEMP 36.2; O2SAT 97
[2019-11-12 07:56] LABS: Hemoglobin 11.7 g/dL (12.0-15.0); Mean Corpuscular HGB Conc 33.4 g/dl (32-36); Mean Corpuscular Hemoglobin 29.4 pg (26-34); Mean Corpuscular Volume 87.9 fl (80-100); Mean Platelet Volume 9.2 fl (7.4-10.4); Platelet Count Result 358 k/mm3 (150-375); Red Blood Count 3.98 M/mm3 (4.2-5.4); Red Cell Distribution Width 11.9 % (11.5-14.5); White Blood Count 13.7 K/mm3 (4.5-10.0)
[2019-11-12 08:00] VITALS: PULSE 91; RESP 18; O2SAT 97
[2019-11-12 08:04] LABS: Alanine Aminotransferase 53 U/L (4-35); Albumin Level 3.4 g/dL (3.5-5.1); Alkaline Phosphatase 93 U/L (38-126); Anion Gap 7 mmol/L (8-16); Aspartate Amino Transferase 37 U/L (14-36); Bilirubin,Total 0.4 mg/dL (0.2-1.3); Blood Urea Nitrogen 6 mg/dL (7-17); Calcium 8.3 mg/dL (8.4-10.2); Carbon Dioxide 27 mmol/L (22-30); Chloride 103 mmol/L (98-107); Estimated CRCL calculation 111 ml/min; Estimated Glomerular Filt Rate > 60; Glucose 83 mg/dL (65-105); Lipase 1843 U/L (23-300); Magnesium 1.9 mg/dL (1.6-2.3); Potassium 3.6 mmol/L (3.4-5.0); Sodium 137 mmol/L (137-145)
[2019-11-12 09:11] LABS: Hepatitis B Surface Antigen Negative (Negative)
[2019-11-12 09:17] LABS: HAV RESULT Negative (Negative); Hepatitis B Core IgM Result Negative (Negative)
[2019-11-12 09:29] LABS: Hepatitis C Virus Antibody Negative (Negative)
[2019-11-12] MEDS: VENLAFAXINE HCL XR 75 MG CAP.ER.24H 150 MG PO (09:30)
--- NOTE | 2019-11-12 10:50 | PC.NURSE ---
Return from Radiology per [ w/c after mrcp. time retured 0710 tolerated well.
--- NOTE | 2019-11-12 11:29 | PM.IMPN ---
Progress Note: A&P Assessment and Plan (1) Acute pancreatitis: Qualifiers: Acute pancreatitis complication: no infection or necrosis Pancreatitis type: unspecified pancreatitis type Qualified Code(s): K85.90 - Acute pancreatitis without necrosis or infection, unspecified Code(s): K85.90 - Acute pancreatitis without necrosis or infection, unspecified Status: Acute Assessment and Plan: Etiology unclear. She does not drink alcohol. This is the patient's second episode. Initial episode was 08/2019. CT abd/pelvis demonstrated pancreatitis with no evidence of abscess or perforation. Lipase >40,000 at presentation. GI was consulted for further recommendations given recurrent pancreatitis. Lipid panel demonstrates triglycerides of 102, LDL 112, HDL 42. Lipase has improved to 1843 today. MRCP showed interstitial pancreatitis with normal biliary tree and no choledocholithiasis. WBC increased to 13.7. She is afebrile and clinically feels much better. Continue IV hydration. Pain has improved, N/V resolved and she is passing flatus with two bowel movements yesterday so I will advance diet slowly starting with clear liquids. Continue analgesics and antiemetics PRN. Monitor lipase, CMP, CBC daily. Appreciate GI input. (2) Elevated liver enzymes: Code(s): R74.8 - Abnormal levels of other serum enzymes Status: Acute Assessment and Plan: Likely secondary to acute pancreatitis. Continue to monitor. Hepatitis panel was negative. Liver was unremarkable on CT abd/pelvis. She also had RUQ US 08/2019 which showed normal echogenicity and contour, with a smooth surface and no liver lesion identified. LFTs continue to improve with treatment of pancreatitis. (3) Hypertension: Qualifiers: Hypertension type: unspecified Qualified Code(s): I10 - Essential (primary) hypertension Code(s): I10 - Essential (primary) hypertension Status: Chronic Assessment and Plan: Blood pressures were reviewed and reasonably well-controlled. She is not on any antihypertensives prior to admission. Most recent BP is 141/74. Continue to monitor. (4) Hypothyroidism: Qualifiers: Hypothyroidism type: unspecified Qualified Code(s): E03.9 - Hypothyroidism, unspecified Code(s): E03.9 - Hypothyroidism, unspecified Status: Chronic Assessment and Plan: Continue IV levothyroxine and resume PO levothyroxine when she is tolerating PO intake. (5) Depression with anxiety: Code(s): F41.8 - Other specified anxiety disorders Status: Chronic Assessment and Plan: Continue venlafaxine. (6) Ovarian cyst: Code(s): N83.209 - Unspecified ovarian cyst, unspecified side Status: Acute Assessment and Plan: 4.7cm left ovarian cyst visualized on CT abd/pelvis and further characterized on MRCP as 4.0 cm hemorrhagic of the left ovary. She follows with Dr. Rowan and I have advised that she follow-up with him for surveillance. I also discussed the risks of rupture and symptoms to watch out for. (7) Enterococcus UTI: Code(s): N39.0 - Urinary tract infection, site not specified; B95.2 - Enterococcus as the cause of diseases classified elsewhere Status: Acute Assessment and Plan: Urine culture demonstrated enterococcus. She is asymptomatic although WBC is increasing. Will start macrobid given PCN allergy. Subjective Date/time seen: 11/12/19 11:29 Mrs. Montesinos is a 49 y.o. female with PMH significant for hypertension, hypothyroidism, migraines, and depression with anxiety who is seen in follow-up for acute pancreatitis. She is feeling much better today. She still has LUQ/epigastric pain radiating to the left side and back but much improved overall. She denies nausea and vomiting. She had two regular bowel movements yesterday and she is passing gas. She feels ready to try to advance diet. She denies fever and chill
[2019-11-12] MEDS: NITROFURANTOIN MONOHYD MACROCR 100 MG CAP PO (13:43)
[2019-11-12 14:00] VITALS: BP 151/81; PULSE 122; RESP 20; TEMP 36.6; O2SAT 98
--- NOTE | 2019-11-12 14:02 | WPDGIPROGNO ---
Progress Note: A&P Assessment and Plan (1) Acute pancreatitis: Qualifiers: Acute pancreatitis complication: no infection or necrosis Pancreatitis type: unspecified pancreatitis type Qualified Code(s): K85.90 - Acute pancreatitis without necrosis or infection, unspecified Code(s): K85.90 - Acute pancreatitis without necrosis or infection, unspecified Status: Acute Assessment and Plan: overall much better, liver enzymes trending down mrcp reviewed will advance to full liquid diet and she tolerates then can go home with bland diet follow up office in 3-4 weeks (2) Upper abdominal pain: Code(s): R10.10 - Upper abdominal pain, unspecified Status: Acute Assessment and Plan: almost gone (3) Elevated liver enzymes: Code(s): R74.8 - Abnormal levels of other serum enzymes Status: Acute Assessment and Plan: improving. (4) Enterococcus UTI: Code(s): N39.0 - Urinary tract infection, site not specified; B95.2 - Enterococcus as the cause of diseases classified elsewhere Status: Acute Assessment and Plan: started on antibiotics by primary, no fever but noted mild leukocytosis Subjective Date/time seen: 11/12/19 14:02 Interval history: she is doing much better, would like to advance her diet and hope to go home soon if she can tolerate. Less pain and nausea. Review of Systems Review of Systems: All systems reviewed & are unremarkable except as noted in HPI and below Exam Const: General: comfortable and no acute distress HENMT: General nose exam: Normal nares present Eyes: General: appearance normal, both eyes and all related structures Neck: Neck: supple and no JVD Resp: Auscultation: clear to auscultation bilaterally Cardio: Rate: regular rate Rhythm: regular rhythm GI: Inspection: non-distended GI Palp: Yes Soft to palpation, Yes Tenderness to palpation present (GI) (improved, no guarding or rebound) and No Guarding due to palpation present (GI) Auscultation: normal bowel sounds Skin: General skin exam: normal color Neuro: Speech: normal speech Motor exam (neuro): Normal motor muscle tone present throughout Extrem: General: normal to inspection Psych: Mental Status: mental status grossly normal Objective Data Vital Signs Vital Signs: Vital Signs - 24 hr 11/11/19 22:00 11/12/19 05:51 11/12/19 08:00 Temperature 98.0 F 97.2 F L Pulse Rate 88 91 91 Respiratory Rate 18 18 18 Blood Pressure 136/72 141/74 H Pulse Oximetry 97 97 97 Intake/Output Intake/Output: Intake & Output 11/09/19 11/10/19 11/11/19 11/12/19 23:59 23:59 23:59 23:59 Intake Total 2100 2380 2160 Output Total 1200 700 Balance 2100 1180 1460 Meds/Results Medications: Active Medications Generic Name Dose Route Start Last Admin Trade Name Freq PRN Reason Stop Dose Admin Alprazolam 0.5 mg 11/12/19 11:39 Xanax PO BID PRN Anxiety Hydromorphone HCl 0.5 mg 11/11/19 07:47 Dilaudid Inj IV PUSH Q3H PRN Pain Rated 7-10 Lactated Ringer's 1,000 mls @ 75 mls/hr 11/11/19 07:45 11/12/19 11:03 Lr - Lactated Ringers Iv IV CONT 125 mls/hr .[id number] JOSE Administration Levothyroxine Sodium 112 mcg 11/13/19 06:30 Synthroid PO DAILY@0630 JOSE Loratadine 10 mg 11/13/19 09:00 Claritin PO QAM JOSE Magnesium Oxide 400 mg 11/13/19 09:00 Mag-Ox PO DAILY JOSE Montelukast Sodium 10 mg 11/12/19 21:00 Singulair PO HS JOSE Nitrofurantoin Macrocrystals 100 mg 11/12/19 12:00 11/12/19 13:43 Macrobid PO 11/16/19 12:01 100 mg Q12HR JOSE Administration Ondansetron HCl 4 mg 11/11/19 07:38 Zofran Inj IV PUSH Q6H PRN Nausea And Vomiting Rizatriptan Benzoate 10 mg 11/12/19 11:40 [employer] PO PRN PRN migraine Venlafaxine HCl 150 mg 11/11/19 13:15 11/12/19 09:30 Effexor Xr PO 150 mg DAILY JOSE Administration Vitamin D 2,0
[2019-11-12 16:00] VITALS: PULSE 68
--- NOTE | 2019-11-12 17:02 | PM.DS ---
DS: Admitting Diagnosis Admitting Diagnosis Admitting Diagnosis: Pancreatitis DS: Discharge Diagnosis Discharge Diagnosis (1) Acute pancreatitis: Qualifiers: Acute pancreatitis complication: no infection or necrosis Pancreatitis type: unspecified pancreatitis type Qualified Code(s): K85.90 - Acute pancreatitis without necrosis or infection, unspecified Code(s): K85.90 - Acute pancreatitis without necrosis or infection, unspecified Status: Acute Assessment and Plan: Discharge Summary (Date of service 11/12/19): Mrs. Montesinos is a 49 y.o. female with PMH significant for pancreatitis, hypothyroidism, hypertension, and depression who presented to the emergency department for the evaluation of epigastric abdominal discomfort and associated nausea. She was recently hospitalized 08/2019 for pancreatitis of unclear etiology and HCTZ was discontinued as it was felt that it may be the cause. Initial workup in the emergency department was notable for lipase >40,[address] abd/pelvis with diffuse thickening of the pancreas with moderate surrounding phlegmonous change without evidence of abscess or perforation. She was treated with IV fluids and admitted to the hospitalist service for further management. Etiology was unclear. She does not drink alcohol. GI was consulted for further recommendations given recurrent pancreatitis. Lipid panel demonstrated triglycerides of 102, LDL 112, HDL 42. MRCP was ordered per GI recommendations and showed interstitial pancreatitis with normal biliary tree and no choledocholithiasis. Lipase improved significantly with IV fluids and was 1843 on the day of discharge. WBC increased to 13.7. She was afebrile and clinically felt much better and requested to go home. Bowel function returned with flatus and bowel movements. LFT elevation was felt secondary to acute pancreatitis and improved with the treatment of pancreattis. She was able to advance her diet without pain, nausea, or vomiting. The case was discussed with Dr. Stephens with GI who felt comfortable for the patient to discharge with repeat labs within 1 week. He recommended bland, low fat diet at discharge. She was discharged in stable condition on the afternoon of 09/11/19. (2) Elevated liver enzymes: Code(s): R74.8 - Abnormal levels of other serum enzymes Status: Acute Assessment and Plan: Likely secondary to acute pancreatitis. Hepatitis panel was negative. Liver was unremarkable on CT abd/pelvis. She also had RUQ US 08/2019 which showed normal echogenicity and contour, with a smooth surface and no liver lesion identified. LFTs continue to improve with treatment of pancreatitis. Plan for repeat CMP within 1 week. (3) Hypertension: Qualifiers: Hypertension type: unspecified Qualified Code(s): I10 - Essential (primary) hypertension Code(s): I10 - Essential (primary) hypertension Status: Chronic Assessment and Plan: Blood pressures were reviewed and reasonably well-controlled. She is not on any antihypertensives prior to admission. (4) Hypothyroidism: Qualifiers: Hypothyroidism type: unspecified Qualified Code(s): E03.9 - Hypothyroidism, unspecified Code(s): E03.9 - Hypothyroidism, unspecified Status: Chronic Assessment and Plan: She was treated with IV levothyroxine while NPO and PO levothyroxine was resumed when she was able to tolerate PO intake. (5) Depression with anxiety: Code(s): F41.8 - Other specified anxiety disorders Status: Chronic Assessment and Plan: Venlafaxine was continued. (6) Ovarian cyst: Code(s): N83.209 - Unspecified ovarian cyst, unspecified side Status: Acute Assessment and Plan: 4.7cm left ovarian cyst was visualized on CT abd/pelvis and further characterized on MRCP as 4.0 cm hemorrhagic of the left ovary. She follows with Dr. Rowan and I have advised that she
== END 2019-11-12 18:15 | disposition home or self-care (01) | DRG 439 ==
LOC: ANHED 14:33 → ANH3MEDSUR 22:35
PROVIDERS: Family Medicine; Internal Medicine Gastroenterology; Physician Assistant; Admitting Provider Family Medicine; Emergency Provider Emergency Medicine; PCP Family Medicine; Visit Provider Physician Assistant
DX: K85.90 Acute pancreatitis without necrosis or infection, unspecified (principal); N39.0 Urinary tract infection, site not specified; B95.2 Enterococcus as the cause of diseases classified elsewhere; R74.8 Abnormal levels of other serum enzymes; N83.209 Unspecified ovarian cyst, unspecified side; I10 Essential (primary) hypertension; E03.9 Hypothyroidism, unspecified; G43.909 Migraine, unspecified, not intractable, without status migrainosus; F41.8 Other specified anxiety disorders; Z79.899 Other long term (current) drug therapy; Z87.891 Personal history of nicotine dependence; Z88.0 Allergy status to penicillin; Z88.2 Allergy status to sulfonamides; Z88.1 Allergy status to other antibiotic agents
CPT/HCPCS: 36415; 71046; 74177; 74183; 76376; 80048; 80053; 80061; 80074; 81001; 81025; 83690; 83735; 84484; 85025; 85027; 85610; 85730; 87077; 87086; 87088; 87186; 93005; 96361; 96374; 96375; 99285; A9270; A9577; J0131; J1170; J1885; J2405; J2550; J7030; J7120; Q9967

== ENCOUNTER 2019-12-12 09:12 | Inpatient (IN) | payer OTHER, SELFPAY ==
[2019-12-12 09:21] VITALS: BP 133/86; PULSE 81; RESP 18; TEMP 36.8; O2SAT 99
[2019-12-12 09:45] LABS: Basophils Percent Auto 0.4 % (0.2-1.2); Eosinophils Absolute Auto 0.6 K/mm3 (0-0.3); Eosinophils Percent Auto 7.7 % (0-4.4); Hematocrit 40.7 % (37.0-47.0); Hemoglobin 13.6 g/dL (12.0-15.0); Immature Granulocyte Absolute 0.02 K/mm3 (0.00-0.031); Immature Granulocyte Percent A 0.3 % (0-0.5); Lymphocytes Absolute Auto 2.94 K/mm3 (0.9-3.2); Lymphocytes Percent Auto 38.5 % (18.3-44.2); Mean Corpuscular HGB Conc 33.4 g/dl (32-36); Mean Corpuscular Hemoglobin 29.2 pg (26-34); Mean Corpuscular Volume 87.5 fl (80-100); Mean Platelet Volume 9.5 fl (7.4-10.4); Monocytes Absolute Auto 0.7 K/mm3 (0.1-0.6); Monocytes Percent Auto 8.7 % (2.6-8.5); Neutrophils Absolute Auto 3.4 K/mm3 (1.3-6.7); Neutrophils Percent Auto 44.4 % (45.5-73.1); Platelet Count Result 397 k/mm3 (150-375); Red Blood Count 4.65 M/mm3 (4.2-5.4); Red Cell Distribution Width 12.2 % (11.5-14.5); White Blood Count 7.6 K/mm3 (4.5-10.0)
[2019-12-12] MEDS: SODIUM CHLORIDE 0.9% IV 1,000 ML 150 ML IV CONT ×2 (09:53→18:17)
[2019-12-12] MEDS: ONDANSETRON INJ 4 MG/2 ML VIAL IV PUSH (09:54)
[2019-12-12 09:55] LABS: Alanine Aminotransferase 58 U/L (4-35); Albumin Level 4.6 g/dL (3.5-5.1); Alkaline Phosphatase 89 U/L (38-126); Anion Gap 10 mmol/L (8-16); Aspartate Amino Transferase 84 U/L (14-36); Bilirubin,Total 0.4 mg/dL (0.2-1.3); Blood Urea Nitrogen 12 mg/dL (7-17); Calcium 9.7 mg/dL (8.4-10.2); Carbon Dioxide 28 mmol/L (22-30); Chloride 99 mmol/L (98-107); Estimated CRCL calculation 83 ml/min; Estimated Glomerular Filt Rate > 60; Glucose 97 mg/dL (65-105); Sodium 137 mmol/L (137-145)
--- NOTE | 2019-12-12 09:58 | ED.ABDPAIN ---
HPI - Abdominal Pain General Chief Complaint: Abdominal Pain <Brandi Harvey PA-C - Last Filed: 12/12/19 13:14> Stated Complaint: pancreatitis <Brandi Harvey PA-C - Last Filed: 12/12/19 13:14> Time Seen by Provider: 12/12/19 09:18 <Brandi Harvey PA-C - Last Filed: 12/12/19 13:14> Source: patient <HOMA Helm Last Filed: 12/12/19 13:14> Mode of arrival: ambulatory <HOMA Helm Last Filed: 12/12/19 13:14> Limitations: no limitations <Brandi Harvey PA-C - Last Filed: 12/12/19 13:14> History of Present Illness HPI narrative: Patient presents with chief complaint of flare of pancreatitis for which the patient is sure because this is her third flareup since August. Patient states her last flareup was a month ago when she was admitted and had CT scans ultrasounds MRIs and other testing performed but I cannot find the cause of her pancreatitis. Patient states that she is set to see a pancreatitis specialist in December as that was the soonest appointment. She reports mild nausea denies fever, chills, vomiting, diarrhea. Patient reports that her symptoms began approximately 1-1/2-hour ago. Patient states that she does not drink alcohol and her medications have been evaluated as a potential cause and have found to be negative. Patient denies any other symptoms or concerns. <Brandi Harvey PA-C - Last Filed: 12/12/19 13:14> Related Data Home Medications: Home Medications Medication Instructions Recorded Confirmed alprazolam 0.5 mg PO BID PRN 08/24/19 11/10/19 cetirizine 10 mg PO DAILY 08/24/19 11/10/19 cholecalciferol (vitamin D3) 50 mcg PO DAILY 08/24/19 11/10/19 [Vitamin D3] levothyroxine 112 mcg PO DAILY 08/24/19 11/10/19 magnesium 400 mg PO DAILY 08/24/19 11/10/19 montelukast [Singulair] 10 mg PO DAILY 08/24/19 11/10/19 rizatriptan 10 mg PO PRN 08/24/19 11/10/19 venlafaxine 150 mg PO DAILY 08/24/19 11/10/19 Aimovig Autoinjector 140 mg SUBCUT MONTHLY 11/10/19 11/10/19 riboflavin (vitamin B2) 400 mg PO DAILY 11/10/19 11/10/19 <Brandi Harvey PA-C - Last Filed: 12/12/19 13:14> Allergies/Adverse Reactions: Allergies Allergy/AdvReac Type Severity Reaction Status Date / Time Penicillins Allergy Unknown Unknown Verified 11/10/19 10:59 Sulfa (Sulfonamide Allergy Unknown Unknown Verified 11/10/19 10:59 Antibiotics) tetracycline Allergy Unknown Unknown Verified 11/10/19 10:59 <Brandi Harvey PA-C - Last Filed: 12/12/19 13:14> Review of Systems Review of Systems: Narrative: CONSTITUTIONAL: Denies fever, chills, or sweats. EYES: Denies visual changes, redness, or discharge. ENT: Denies rhinorrhea, congestion, sore throat, or otalgia. CARDIOVASCULAR: Denies chest pain, palpitations, or edema. RESPIRATORY: Denies cough or dyspnea. GASTROINTESTINAL: Reports epigastric abdominal pain, nausea, denies vomiting, or diarrhea. GENITOURINARY: Denies dysuria or hematuria. SKIN: Denies rash or itching. MUSCULOSKELETAL: Denies back pain, myalgia, or joint pain NEUROLOGIC: Denies headache, numbness, dizziness, or weakness. PSYCHIATRIC: Denies anxiety or depression. <Brandi Harvey PA-C - Last Filed: 12/12/19 13:14> [facility] Past Medical History Medical History: Medical History (Updated 12/12/19 @ 13:14 by Brandi Harvey PA-C) Depression with anxiety Elevated liver enzymes Hypertension Hypothyroidism Migraines Upper abdominal pain <Brandi Harvey PA-C - Last Filed: 12/12/19 13:14> Surgical History Surgical History: Surgical History History of carpal tunnel release of both wrists History of section History of endometrial ablation (~11/2010) For menometrorrhagia. <Brandi Harvey PA-C - Last Filed: 12/12/19 13:14> Family History Family History: Family History Mother Glaucoma Acute myocardial infarction Ch
[2019-12-12 10:13] LABS: Add Urine Microscopic? YES; Appearance Urine Clear (Clear); Bilirubin Urine Negative (Negative); Blood Urine Negative (Negative); Color Urine Amber (Yellow); Glucose Urine UA Negative (Negative); Ketones Urine Trace mg/dL (Negative); Leukocyte Esterase Ur 2+ LEU/UL (Negative); Mucus Urine Heavy /lpf; Nitrate Urine Negative (Negative); Protein Urine 1+ mg/dL (Negative); Squamous Epithelial Cell Urine Many /hpf (Few); Urobilinogen Urine Negative mg/dL (<2.0); WBC Urine 21-30 /hpf
[2019-12-12 10:30] LABS: Lipase 14627 U/L (23-300)
[2019-12-12 11:35] VITALS: BP 110/67; PULSE 62; RESP 17; O2SAT 98
[2019-12-12 14:05] VITALS: BP 122/63; PULSE 77; RESP 16; O2SAT 99
--- NOTE | 2019-12-12 14:18 | PC.NURSE ---
decision made to not give Rocephin d/t to past hx of trouble breathing with penicillin pt to start macrobid 100 bid po per REZA guerra
[2019-12-12] MEDS: NITROFURANTOIN MONOHYD MACROCR 100 MG CAP (14:20)
[2019-12-12 14:35] VITALS: BP 129/63; PULSE 70; RESP 18; TEMP 36.7; O2SAT 98; BMI 25.9
--- NOTE | 2019-12-12 15:06 | ADMGEN ---
This patient, Cara Montesinos, was admitted to 2 Medical Room 252-. Patient/family oriented to hospital policies and general routines including ID bracelet, bed and alarms, visiting hours, pain management, procedures, bathroom and other care routines, personal items, smoking policy, room service/diet, and visiting hours. Reviewed plan of care. Information on how to activate the Rapid Response Team has been discussed. Patient/Family are encouraged to report perceived risks to care and to ask questions if they do not understand what they are told or what they should do.
--- NOTE | 2019-12-12 17:18 | PM.IMHP ---
H&P: HPI History of Present Illness Date/Time: 12/12/19 17:18 Chief complaint: acute recurrent pancreatitis Narrative: Cara Montesinos is a 49 year old female Who has a history of chronic pancreatitis. The patient has been admitted here several times with pancreatitis. The patient is a non drinker. The patient stated she has not drink alcohol on for years. The patient was discharged from here on 11/12/2019. Hydrochlorothiazide was discontinued at that time because it was thought that maybe that was the cause of it. Her lipase was greater than 40,000 that admission. The patient had diffuse thickening of the pancreas with moderate surrounding phlegmonous change without evidence of abscess or perforation. She was treated with IV fluids and she was seen by the GI specialist at that time. She had MRCP at that time and it showed interstitial pancreatitis with normal biliary tree and no choledocholithiasis. Her lipase was 1843 upon discharge. The patient stated this past Tuesday she went to work and she just was not feeling very well and was having severe abdominal discomfort. So she went home from work Tuesday and so she was not allowed to come back to work on Tuesday because she had left sick. She had no fever no chills. She had mild nausea but no fever and chills. Her symptoms began about an hour and half prior to coming to the emergency room again today. She had not taken any medications for this. She was found to be positive for UTI. The patient was prescribed ceftriaxone though there was some concern about her the allergic to penicillin. The patient stated she has taken Keflex in the past without any problems. Last month patient was positive for Enterococcus species in her urine. Her AST is 80 for ALT is 58. Patient's lipase today was 14,627. IV fluids were started on the patient the emergency room And she was given Zofran . Patient is being admitted to inpatient for UTI and pancreatitis. Review of Systems Review of Systems: All systems reviewed & are unremarkable except as noted in HPI and below Constitutional: Constitutional: Reports as per HPI and Reports no additional constitutional complaints Eyes: Eyes: Reports as per HPI and Reports no additional eye complaints ENT: Reports system reviewed and no additional complaints, except as documented and Reports Normal hearing present Cardiovascular: Cardiovascular: Reports no additional cardiovascular complaints Respiratory: Respiratory: Reports no additional respiratory complaints and Reports no additional respiratory complaints Gastrointestinal: Gastrointestinal: Reports as per HPI and Reports no additional gastrointestinal complaints Musculoskeletal: Musculoskeletal: Reports no additional musculoskeletal complaints Integumentary/Breasts: Skin/Breast: Reports system reviewed and no additional complaints, except as docu and Reports as per HPI Neurologic: Reports system reviewed and no additional complaints, except as documented, Reports as per HPI and Reports Normal hearing present Psychiatric: Psychiatric: Reports no additional psychiatric complaints and Reports as per HPI Endocrine: Endocrine: Reports no additional endocrine complaints Hematologic/Lymphatic: Hematologic/Lymphatic: Reports no additional hematologic/lymphatic complaints Allergic/Immunologic: Allergic/Immunologic: Reports no additional allergic/immunologic complaints PMFSH Past Medical History Medical History Depression with anxiety Elevated liver enzymes Hypertension Hypothyroidism Migraines Upper abdominal pain Surgical History Surgical History History of carpal tunnel release of both wrists History of section History of endometrial ablation (~11/2010) For menometrorrhagia. Family History Family History Mother Glaucoma
[2019-12-12] MEDS: VENLAFAXINE HCL XR 75 MG CAP.ER.24H 150 MG PO (21:41)
[2019-12-12] MEDS: KETOROLAC 15 MG/ML VIAL (*BKC) IV PUSH (21:53)
[2019-12-12 22:00] VITALS: BP 139/68; PULSE 57; RESP 20; TEMP 36.4; O2SAT 98
[2019-12-13] MEDS: SODIUM CHLORIDE 0.9% IV 1,000 ML 150 ML IV CONT ×2 (00:47→07:31)
[2019-12-13] MEDS: LEVOTHYROXINE SODIUM INJ 100 MCG/5 ML VIAL 56 MCG IV PUSH (05:51)
[2019-12-13 06:00] VITALS: BP 129/58; PULSE 71; RESP 20; TEMP 36.3; O2SAT 98
[2019-12-13 06:09] LABS: Basophils Percent Auto 0.6 % (0.2-1.2); Eosinophils Absolute Auto 0.5 K/mm3 (0-0.3); Eosinophils Percent Auto 8.3 % (0-4.4); Hematocrit 36.6 % (37.0-47.0); Immature Granulocyte Absolute 0.01 K/mm3 (0.00-0.031); Immature Granulocyte Percent A 0.2 % (0-0.5); Lymphocytes Absolute Auto 2.06 K/mm3 (0.9-3.2); Lymphocytes Percent Auto 38.1 % (18.3-44.2); Mean Corpuscular HGB Conc 32.8 g/dl (32-36); Mean Corpuscular Hemoglobin 28.9 pg (26-34); Mean Corpuscular Volume 88.2 fl (80-100); Mean Platelet Volume 9.5 fl (7.4-10.4); Monocytes Absolute Auto 0.5 K/mm3 (0.1-0.6); Monocytes Percent Auto 9.1 % (2.6-8.5); Neutrophils Absolute Auto 2.4 K/mm3 (1.3-6.7); Neutrophils Percent Auto 43.7 % (45.5-73.1); Platelet Count Result 333 k/mm3 (150-375); Red Blood Count 4.15 M/mm3 (4.2-5.4); Red Cell Distribution Width 11.9 % (11.5-14.5); White Blood Count 5.4 K/mm3 (4.5-10.0)
[2019-12-13 06:24] LABS: Alanine Aminotransferase 43 U/L (4-35); Albumin Level 3.6 g/dL (3.5-5.1); Alkaline Phosphatase 79 U/L (38-126); Anion Gap 4 mmol/L (8-16); Aspartate Amino Transferase 42 U/L (14-36); Bilirubin,Total 0.4 mg/dL (0.2-1.3); Blood Urea Nitrogen 9 mg/dL (7-17); CRP 0.5 mg/dL (<1.0); Calcium 8.5 mg/dL (8.4-10.2); Carbon Dioxide 30 mmol/L (22-30); Chloride 107 mmol/L (98-107); Estimated CRCL calculation 72 ml/min; Estimated Glomerular Filt Rate > 60; Glucose 83 mg/dL (65-105); Lactate Dehydrogenase 330 U/L (313-618); Lipase 499 U/L (23-300); Potassium 4.1 mmol/L (3.4-5.0); Sodium 141 mmol/L (137-145)
--- NOTE | 2019-12-13 10:28 | WPDGICN ---
Assessment and Plan Assessment and plan (1) Recurrent acute pancreatitis: Code(s): K85.90 - Acute pancreatitis without necrosis or infection, unspecified Status: Acute Assessment and Plan: she is already doing better, no pain and transaminases down no definitive etiology for pancreatitis, this is at least 3rd time. she already has an appointment to see pancreas specialist in [facility], probably she will benefit from having EUS of pancreas/GB to assess if microlithiasis, ampullary stenosis, etc with +/- cholecystectomy if indicated. Probably if work up is negative then her doctor will order genetic testing for hereditary pancreatitis (prss1, spink1, etc) we will order in the meantime IgG4 to rule out autoimmune pancreatitis (2) Elevated liver enzymes: Code(s): R74.8 - Abnormal levels of other serum enzymes Status: Acute Assessment and Plan: trending down, continue medical support (3) Upper abdominal pain: Code(s): R10.10 - Upper abdominal pain, unspecified Status: Acute Assessment and Plan: better, ok to start liquid diet GI Consult Note Consult date/time: 12/13/19 10:28 Reason for consult: pancreatitis HPI: Cara Montesinos is a 49 year old female who is known to me from recent hospitalization. She has history of hypothyroidism, hypertension, and depression on velafaxine with hospitalization in August and last month with acute pancreatitis without definitive etiology (denies etoh use, ultrasound was normal, TG level normal and no history of GB disease). Last hospitalization she had CT abdomen pelvis revealed diffuse thickening of the pancreas with moderate surrounding phlegmonous change and fluid, consistent with acute pancreatitis, then MRCP showed interstitial pancreatitis with normal biliary tree and no choledocholithiasis. She came yesterday with new onset of severe abdominal discomfort with radiation to her back like similar episode of pancreatitis, also nausea without vomiting. Blood work AST 80, ALT 58, normal wbc, bili and Alk Phos. Lipase 14,627. Transaminases down to 40's. She is feeling much better, no more abdominal pain or nausea. Review of Systems Constitutional: Constitutional: Denies headache(s) and Denies weakness Eyes: Eyes: Denies blurry vision ENT: Reports Normal hearing present, Denies headache(s) and Denies neck pain Cardiovascular: Cardiovascular: Denies chest pain and Denies dyspnea Respiratory: Respiratory: Denies dyspnea Gastrointestinal: Gastrointestinal: Reports no additional gastrointestinal complaints Genitourinary: Genitourinary: Denies dysuria Musculoskeletal: Musculoskeletal: Denies neck pain Integumentary/Breasts: Skin/Breast: Denies dry skin Neurologic: Reports Normal hearing present, Denies headache(s) and Denies weakness Psychiatric: Psychiatric: Denies anxiety Endocrine: Endocrine: Denies change in body appearance Hematologic/Lymphatic: Hematologic/Lymphatic: Denies easy bleeding Allergic/Immunologic: Allergic/Immunologic: Denies urticaria PMFSH Past Medical History Medical History Depression with anxiety Elevated liver enzymes Hypertension Hypothyroidism Migraines Upper abdominal pain Surgical History Surgical History History of carpal tunnel release of both wrists History of section History of endometrial ablation (~11/2010) For menometrorrhagia. Family History Family History Mother Glaucoma Acute myocardial infarction Chronic obstructive pulmonary disease Diabetes mellitus Father Cerebrovascular accident Lung cancer Hypertension Sibling Asthma Sibling Cerebrovascular accident Social History Social History Social History: The patient is and lives at home with her h
[2019-12-13 10:38] VITALS: BMI 25.9
--- NOTE | 2019-12-13 11:31 | PCNSR ---
On 12/13/19, the student, Jessenia Esqueda, provided care and completed [facility] documentation on this patient. I have reviewed the student's documentation and agree with the findings.
--- NOTE | 2019-12-13 13:00 | PM.DS ---
DS: Admitting Diagnosis Admitting Diagnosis Admitting Diagnosis: acute recurrent pancreatitis DS: Discharge Diagnosis Discharge Diagnosis (1) Acute pancreatitis: Qualifiers: Acute pancreatitis complication: unspecified Pancreatitis type: unspecified pancreatitis type Qualified Code(s): K85.90 - Acute pancreatitis without necrosis or infection, unspecified Code(s): K85.90 - Acute pancreatitis without necrosis or infection, unspecified Status: Acute Assessment and Plan: -----patient's symptoms and lipase improved the day of discharge. She has plans to follow-up with the pancreatitis clinic in [place] and a couple weeks. Since she is doing well, she was discharged home to follow-up with them. She is well educated on the signs and symptoms to come back to emergency room for (2) UTI (urinary tract infection): Code(s): N39.0 - Urinary tract infection, site not specified Status: Acute Assessment and Plan: ------this is likely her normal fluoro since she has absolutely no pain, dysuria, frequency and her white blood cell count is normal with no fevers. Last month she had the same organism grow out and took Macrobid. We will prescribe her another prescription for Macrobid but I do not suspect she will need further treatment for this if she happens to have this finding again. (3) Depression with anxiety: Code(s): F41.8 - Other specified anxiety disorders Status: Chronic Assessment and Plan: ----in good spirits. (4) Hypothyroidism: Qualifiers: Hypothyroidism type: unspecified Qualified Code(s): E03.9 - Hypothyroidism, unspecified Code(s): E03.9 - Hypothyroidism, unspecified Status: Chronic Assessment and Plan: -----continue levothyroxine (5) Hypertension: Qualifiers: Hypertension type: unspecified Qualified Code(s): I10 - Essential (primary) hypertension Code(s): I10 - Essential (primary) hypertension Status: Chronic Assessment and Plan: -----last bp 146/74 (6) Elevated liver enzymes: Code(s): R74.8 - Abnormal levels of other serum enzymes Status: Acute Assessment and Plan: ------Most likely related to her pancreatitis. The patient is a nondrinker. DS: Summary Hospital Course Reason for hospitalization: Pancreatitis Hospital Course: Patient is a 49-year-old female who presented emergency room for intense abdominal pain that is consistent with her history of pancreatitis. Her lipase was elevated to 14,000 and her liver enzymes were elevated. She was admitted to the hospitalist service and started on IV fluids and bowel rest. This improved her lipase to 499 on the day of discharge she was eating and drinking well without any abdominal pain. She has had multiple workups before and had an MRCP her prior admission. She has plans to follow-up with a pancreatitis clinic in December and is going to proceed with further workup there. She also had a UTI as I mentioned above which is likely a normal colonizer for her at this point since she is asymptomatic. The patient was educated about the worrisome signs and symptoms come back to emergency room for was discharged stable condition Status at Discharge Functional status at discharge: independent ambulation Overall status at discharge: patient is back to baseline Time Spent with Patient Time attestation: Total time spent providing and/or coordinating discharge services:32 min Time spent: Greater than 30 minutes Exam Narrative: Exam Narrative: General: Well developed well nourished patient in NAD HEENT: normocephalic Neck: supple Neuro: Alert and oriented x4 CV:RRR Resp:CTA Abd: Soft, non distended. No pain to palpation. Positive bowel sounds. No flank ecchymosis for umbilical ecchymosis Extremities: No swelling, erythema, or pain to palpation. DS: Data Data Completed and Pending
[2019-12-13 13:22] VITALS: BP 146/74; PULSE 84; RESP 18; TEMP 37.1; O2SAT 98
--- NOTE | 2019-12-17 07:47 | PC.NURSE ---
Urine cx is susceptible to Macrobid. This is what patient was dc on.
== END 2019-12-13 16:24 | disposition home or self-care (01) | DRG 439 ==
LOC: ANHED 13:14 → ANH2MED 15:10
PROVIDERS: Internal Medicine Gastroenterology; Nurse Practitioner; Admitting Provider Internal Medicine; Emergency Provider Emergency Medicine; PCP Family Medicine; Visit Provider Physician Assistant
DX: K85.80 Other acute pancreatitis without necrosis or infection (principal); N39.0 Urinary tract infection, site not specified; B95.2 Enterococcus as the cause of diseases classified elsewhere; F41.8 Other specified anxiety disorders; E03.9 Hypothyroidism, unspecified; I10 Essential (primary) hypertension; R74.8 Abnormal levels of other serum enzymes; Z87.891 Personal history of nicotine dependence
CPT/HCPCS: 36415; 80053; 81001; 81025; 82787; 83615; 83690; 84443; 85025; 86140; 87077; 87086; 87088; 87186; 96361; 96365; 96375; 99285; A9270; J0131; J1885; J2405; J7030

== ENCOUNTER 2020-01-26 20:54 | Emergency (ER) | payer OTHER, SELFPAY ==
[2020-01-26] VITALS (12 sets, daily range): BP systolic 130–156; BP diastolic 64–71; PULSE 58–85; RESP 12–20; TEMP 36.8; O2SAT 98–100
--- NOTE | ~2020-01-26 | CT_ITS ---
EXAMINATION: CT abdomen pelvis w con DATE: 01/26/2020 22:13 INDICATION: Epigastric pain TECHNIQUE: Computed tomography (CT) of the abdomen and pelvis was performed with 100 mL Omnipaque-350 intravenous contrast. Automated exposure control and iterative reconstruction technique were employe d. The dose-length product was 331.94 mGy-cm. COMPARISON: CT dated 11/10/2019 and MRI dated 11/04/2019 FINDINGS: Band of discoid atelectasis in the left lower lobe along the major fissure. Heart size is normal. No pericardial or pleural effusion. Mild intrahepatic biliary ductal dilation. Common bile duct measures 6 mm in diameter and the main pancreatic duct measures up to 2.5 cm maximal diameter at the head of the pancreas, both which are at the upper limits of normal. The gallbladder is mildly dilated to 4.2 cm in maximal diameter. There is mild gallbladder wall thickening versus trace amount of pericholecys tic fluid along the gallbladder fossa. Spleen, bilateral adrenal glands and right kidney are normal. A couple subcentimeter left renal cysts. There is fluid throughout the proximal colon consistent with diarrhea. Small bowel and appendix are normal. 4.3 cm cystic cystic left ovarian lesion which on kaya or MRI demonstrated increased T1 and decreased T2 signal with no enhancement consistent with a hemorr hagic or proteinaceous cyst. Similar 1.7 cm proteinaceous/hemorrhagic cyst at the right ovary. Anteve rted uterus and decompressed bladder are normal. No free intraperitoneal gas or fluid. No pathologica lly enlarged abdominal or pelvic lymphadenopathy. Partially visualized thoracic dextroscoliosis. IMPRESSION: 1. Mild intrahepatic biliary ductal dilation and borderline dilation of the common bile duct and main pancreatic duct. Correlate with liver function tests and amylase and lipase levels. 2. Mildly dilated gallbladder with mild wall thickening versus trace amount of pericholecystic fluid. Correlate for Angeles sign and if there is concern for acute cholecystitis could consider either HIDA scan or ultrasound. 3. Bilateral proteinaceous/hemorrhagic ovarian cysts the largest on the left measuring 4.3 cm. Reviewed, dictated and finalized at location A. ING SPECIALIST IMPRESSION: 1. Mild intrahepatic biliary ductal dilation and borderline dilation of the com mon bile duct and main pancreatic duct. Correlate with liver function tests and amylase and lipase levels. 2. Mildly dilated gallbladder with mild wall thickening versus trace amount of pericholecystic fluid. Correlate for Angeles sign and if there is concern for ac chari cholecystitis could consider either HIDA scan or ultrasound. 3. Bilateral proteinaceous/hemorrhagic ovarian cysts the largest on the left me asuring 4.3 cm.
[2020-01-26 21:20] LABS: Hematocrit 42.9 % (37.0-47.0); Hemoglobin 14.4 g/dL (12.0-15.0); Mean Corpuscular HGB Conc 33.6 g/dl (32-36); Mean Corpuscular Hemoglobin 29.9 pg (26-34); Mean Corpuscular Volume 89.2 fl (80-100); Platelet Count Result 431 k/mm3 (150-375); Red Blood Count 4.81 M/mm3 (4.2-5.4); Red Cell Distribution Width 12.2 % (11.5-14.5); White Blood Count 10.5 K/mm3 (4.5-10.0)
[2020-01-26 21:25] LABS: Add Urine Microscopic? YES; Appearance Urine Clear (Clear); Bilirubin Urine Negative (Negative); Blood Urine 2+ (Negative); Color Urine Yellow (Yellow); Glucose Urine UA Negative (Negative); Ketones Urine Negative (Negative); Leukocyte Esterase Ur Trace LEU/UL (Negative); Mucus Urine Few /lpf; Nitrate Urine Negative (Negative); Protein Urine Negative (Negative); RBC Urine 0-2 /hpf (0-2); Specific Grav Ur 1.015 (1.001-1.035); Squamous Epithelial Cell Urine Rare /hpf (Few); Urobilinogen Urine Negative mg/dL (<2.0)
[2020-01-26 21:33] LABS: Alanine Aminotransferase 45 U/L (4-35); Albumin Level 4.5 g/dL (3.5-5.1); Alkaline Phosphatase 94 U/L (38-126); Anion Gap 5 mmol/L (8-16); Aspartate Amino Transferase 98 U/L (14-36); Bilirubin,Total 0.3 mg/dL (0.2-1.3); Blood Urea Nitrogen 10 mg/dL (7-17); Calcium 9.3 mg/dL (8.4-10.2); Carbon Dioxide 31 mmol/L (22-30); Chloride 101 mmol/L (98-107); Estimated CRCL calculation 83 ml/min; Estimated Glomerular Filt Rate > 60; Glucose 102 mg/dL (65-105); Lipase 708 U/L (23-300); Potassium 3.6 mmol/L (3.4-5.0); Sodium 137 mmol/L (137-145)
[2020-01-26 21:49] LABS: Eosinophils Absolute Manual 0.42 K/mm3 (0.02-0.5); Eosinophils Percent Manual 4 % (0-4); Monocytes Absolute Manual 0.63 K/mm3 (0.1-0.90); Monocytes Percent Manual 6 % (3-9); Neutrophils Percent Manual 50 % (46-73); Total Cells Counted 100
[2020-01-26 21:50] LABS: Atypical Lymphocytes Present; Platelet Estimate Increased (Adequate)
[2020-01-26] MEDS: SODIUM CHLORIDE 0.9% IV 1,000 ML 999 ML IV CONT (21:51)
[2020-01-26] MEDS: MORPHINE SULFATE (*CRX) 4 MG/ML INJ IV PUSH (21:52)
--- NOTE | 2020-01-26 23:59 | ED.ABDPAIN ---
HPI - Abdominal Pain General Chief Complaint: Abdominal Pain Stated Complaint: pancreatitis Time Seen by Provider: 01/26/20 21:02 History of Present Illness HPI narrative: Patient is a 49-year-old female who presents ER with abdominal pain. Feels similar to her pancreatitis. She has been hospitalized for this several times. Recently underwent endoscopy ultrasound at [facility] without finding a source for her symptoms. Reports night she was eating when symptoms began. She does not drink alcohol. No nausea or vomiting just pain that radiates across upper part of her abdomen. Related Data Home Medications Medication Instructions Recorded Confirmed alprazolam 0.5 mg PO BID PRN 08/24/19 12/12/19 cetirizine 10 mg PO DAILY 08/24/19 12/12/19 cholecalciferol (vitamin D3) 50 mcg PO DAILY 08/24/19 12/12/19 [Vitamin D3] levothyroxine 112 mcg PO DAILY 08/24/19 12/12/19 magnesium 400 mg PO DAILY 08/24/19 12/12/19 montelukast [Singulair] 10 mg PO DAILY 08/24/19 12/12/19 rizatriptan 10 mg PO PRN 08/24/19 12/12/19 venlafaxine 150 mg PO DAILY 08/24/19 12/12/19 Aimovig Autoinjector 140 mg SUBCUT MONTHLY 11/10/19 12/12/19 riboflavin (vitamin B2) 400 mg PO DAILY 11/10/19 12/12/19 [id number] 1 tablet PO Q4H PRN 12/12/19 12/12/19 hyoscyamine sulfate mg 01/26/20 Allergies Allergy/AdvReac Type Severity Reaction Status Date / Time Penicillins Allergy Intermediate Unknown Verified 01/26/20 21:03 Sulfa (Sulfonamide Allergy Unknown Unknown Verified 01/26/20 21:03 Antibiotics) tetracycline Allergy Unknown Unknown Verified 01/26/20 21:03 Review of Systems Review of Systems: All systems reviewed & are unremarkable except as noted in HPI and below Constitutional: Constitutional: Denies chills, Denies fever(s) and Denies weakness ENT: Denies nasal congestion and Denies sore throat Gastrointestinal: Gastrointestinal: Reports abdominal pain, Denies diarrhea, Denies nausea and Denies vomiting [facility] Past Medical History Medical History (Updated 01/27/20 @ 00:02 by Dez Brown MD) Depression with anxiety Elevated liver enzymes Hypertension Hypothyroidism Migraines Recurrent acute pancreatitis Upper abdominal pain Surgical History Surgical History (System 12/26/19 @ 13:21 by Pedro Mccoy) History of carpal tunnel release of both wrists History of section History of endometrial ablation (~11/2010) For menometrorrhagia. Family History Family History (System 12/26/19 @ 13:21 by Pedro Mccoy) Mother Glaucoma Acute myocardial infarction Chronic obstructive pulmonary disease Diabetes mellitus Father Cerebrovascular accident Lung cancer Hypertension Sibling Asthma Sibling Cerebrovascular accident Social History Social History (System 12/26/19 @ 13:21 by Pedro Mccoy) Social History: The patient is and lives at home with her and their 2 children in [place]. 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 She smoked 1/2 a pack of cigarettes and quit in 1999. She very rarely will consume alcohol, and typically avoids it as it gives her migraines. No illicit substance use. Her , Hugo, is her surrogate decision maker and she wishes to be a full code. Smoking packs per day: 0.5 Smoking cigarettes per day: 10.0 Smoking status: Former smoker Tobacco type: cigarettes Smoking end date: 12/12/19 Alcohol intake: never Substance use: never Gender identity (if verbalized by the patient): Female Spiritual care concerns: No Exam Narrative: Exam Narrative: GENERAL: Uncomfortable-appearing, well-nourished, and in no acute distress. HEAD: Normocephalic, atraumatic. CHEST: Clear to auscultation. No respiratory distress. HEART: Regular rate and rhythm. Normal peripheral pulses. ABDOMEN: Soft, mild epigastric tenderness, nondistended. EXTREMITIES: Normal range of motion. No edema. SKIN: Warm, dry, no rash. NEURO: Alert and oriented x3. PSY
[2020-01-27 01:05] VITALS: PULSE 67; RESP 17
== END 2020-01-27 00:55 | disposition home or self-care (01) ==
PROVIDERS: Emergency Provider Emergency Medicine; PCP Family Medicine
DX: K85.90 Acute pancreatitis without necrosis or infection, unspecified (principal); Z87.891 Personal history of nicotine dependence; I10 Essential (primary) hypertension; E03.9 Hypothyroidism, unspecified; F41.9 Anxiety disorder, unspecified; F32.9 Major depressive disorder, single episode, unspecified
CPT/HCPCS: 36415; 74177; 80053; 81001; 81025; 83690; 85025; 96361; 96374; 99284; J2270; J7030; Q9967

== ENCOUNTER 2020-01-27 19:05 | Observation (INO) | payer OTHER, SELFPAY ==
[2020-01-27] VITALS (18 sets, daily range): BP systolic 107–121; BP diastolic 56–72; PULSE 54–69; RESP 12–22; TEMP 36.3–36.7; O2SAT 96–100
--- NOTE | ~2020-01-27 | XR_ITS ---
EXAMINATION: XR cholangiogram surg 1st inj EXAM DATE: 01/29/2020 16:51 INDICATION: Laparoscopic cholecystectomy. TECHNIQUE: Multiples Cine fluoroscopic images were obtained during injection of the cystic duct duri ng laparoscopic cholecystectomy. Procedure performed by Dr. Bryn Manzano DO on 01/29/2020 16: 51. The DAP for this procedure was 0.14 mGym2. FINDINGS: The cystic duct has been injected. There are no intraluminal filling defects within or st rictures of the common bile duct or opacified hepatic ducts. Forward flow of contrast confirmed into the duodenum. IMPRESSION: Unremarkable biliary system. Reviewed, dictated and finalized at location A. ROLLER
--- NOTE | ~2020-01-27 | US_ITS ---
EXAMINATION: US right upper quadrant DATE: 01/28/2020 11:11 INDICATION: Cholecystitis elevated liver function tests. TECHNIQUE: Multiple grayscale and Doppler ultrasound images of the abdomen were obtained. COMPARISON: CT dated 01/26/2020 FINDINGS: The pancreatic head and body are normal in appearance. The pancreatic tail is not visualized. The vi sualized proximal to mid aorta and inferior vena cava are normal. Liver has normal echogenicity and c ontour, with a smooth surface. No liver lesion identified. No intrahepatic biliary duct dilation susp ected. Portal venous flow was seen in the hepatopetal, normal direction and has normal Doppler wavefo rm. There is also normal directional former and venous waveforms in the middle hepatic vein. Sludge a nd small shadowing gallstones in the dependent aspect of the gallbladder. The gallbladder is not dila bridger and there is no wall thickening. Sonographic Angeles sign was reported as positive by the sonograp her.The common bile duct measures up to 6 mm in diameter which is at the upper limits of normal. The common bile duct tapers to 3 mm in the distal duct with no evident choledocholithiasis. Right kidney measures 11.1 x 3.5 x 5.4 cm with normal contour and echogenicity and no hydronephrosis. IMPRESSION: 1. Cholelithiasis with normal-appearing gallbladder but positive sonographic Angeles sign which is equ al for acute cholecystitis. Could consider HIDA scan for further evaluation. 2. Borderline dilation of the common bile duct with resolution of prior intrahepatic biliary ductal d ilation. Could consider MRCP to assess for distal obstructing common bile duct stone. Reviewed, dictated and finalized at location B. TENDER IMPRESSION: 1. Cholelithiasis with normal-appearing gallbladder but positive sonographic Mu rphy sign which is equal for acute cholecystitis. Could consider HIDA scan for further evaluation. 2. Borderline dilation of the common bile duct with resolution of prior intrahe patic biliary ductal dilation. Could consider MRCP to assess for distal obstruc ting common bile duct stone.
[2020-01-27] MEDS: MORPHINE SULFATE (*CRX) 4 MG/ML INJ IV PUSH (19:34)
[2020-01-27] MEDS: SODIUM CHLORIDE 0.9% IV 1,000 ML 999 ML IV CONT (19:34)
[2020-01-27] MEDS: ONDANSETRON INJ 4 MG/2 ML VIAL IV PUSH (19:34)
[2020-01-27 19:40] LABS: Basophils Absolute Auto 0.1 K/mm3 (0.0-0.1); Basophils Percent Auto 0.4 % (0.2-1.2); Eosinophils Absolute Auto 0.4 K/mm3 (0-0.3); Eosinophils Percent Auto 2.6 % (0-4.4); Hematocrit 42.1 % (37.0-47.0); Hemoglobin 14.2 g/dL (12.0-15.0); Immature Granulocyte Absolute 0.05 K/mm3 (0.00-0.031); Immature Granulocyte Percent A 0.4 % (0-0.5); Lymphocytes Absolute Auto 2.53 K/mm3 (0.9-3.2); Lymphocytes Percent Auto 17.8 % (18.3-44.2); Mean Corpuscular HGB Conc 33.7 g/dl (32-36); Mean Corpuscular Hemoglobin 30.2 pg (26-34); Mean Corpuscular Volume 89.6 fl (80-100); Mean Platelet Volume 9.3 fl (7.4-10.4); Monocytes Absolute Auto 1.1 K/mm3 (0.1-0.6); Monocytes Percent Auto 7.6 % (2.6-8.5); Neutrophils Absolute Auto 10.1 K/mm3 (1.3-6.7); Neutrophils Percent Auto 71.2 % (45.5-73.1); Platelet Count Result 432 k/mm3 (150-375); Red Cell Distribution Width 12.5 % (11.5-14.5); White Blood Count 14.2 K/mm3 (4.5-10.0)
[2020-01-27 19:52] LABS: Add Urine Microscopic? YES; Appearance Urine Clear (Clear); Bacteria Urine Trace /hpf; Bilirubin Urine Negative (Negative); Blood Urine 1+ (Negative); Color Urine Yellow (Yellow); Glucose Urine UA Negative (Negative); Ketones Urine Negative (Negative); Leukocyte Esterase Ur 1+ LEU/UL (Negative); Mucus Urine Rare /lpf; Nitrate Urine Negative (Negative); Protein Urine 1+ mg/dL (Negative); Specific Grav Ur 1.014 (1.001-1.035); Squamous Epithelial Cell Urine Many /hpf (Few); Urobilinogen Urine Negative mg/dL (<2.0)
[2020-01-27 19:52] LABS: Alanine Aminotransferase 295 U/L (4-35); Albumin Level 4.4 g/dL (3.5-5.1); Alkaline Phosphatase 149 U/L (38-126); Anion Gap 7 mmol/L (8-16); Aspartate Amino Transferase 478 U/L (14-36); Bilirubin,Total 1.7 mg/dL (0.2-1.3); Blood Urea Nitrogen 11 mg/dL (7-17); Calcium 9.7 mg/dL (8.4-10.2); Carbon Dioxide 29 mmol/L (22-30); Chloride 102 mmol/L (98-107); Estimated CRCL calculation 72 ml/min; Estimated Glomerular Filt Rate > 60; Glucose 118 mg/dL (65-105); Potassium 3.6 mmol/L (3.4-5.0); Sodium 138 mmol/L (137-145)
[2020-01-27 20:04] LABS: Ethanol < 10 mg/dL (<10)
--- NOTE | 2020-01-27 20:07 | ED.ABDPAIN ---
HPI - Abdominal Pain General Chief Complaint: Abdominal Pain Stated Complaint: Abd pain Time Seen by Provider: 01/27/20 19:10 History of Present Illness HPI narrative: Patient is a 49-year-old female who presents ER with abdominal pain. Located in her epigastrium. Radiating to her back. Similar to her recurrent pancreatitis. Underwent endoscopic ultrasound on 01/16/2020 at [facility] which did not show any pathology. She had been consented for potential stenting of her biliary duct but it was not required. Patient reports she has had a couple episodes of emesis related to her pain. No improvement with Jewett or Zofran. Return if she is not improving. She was seen in the ER last night. Related Data Home Medications Medication Instructions Recorded Confirmed alprazolam 0.5 mg PO BID PRN 08/24/19 01/28/20 cetirizine 10 mg PO DAILY 08/24/19 01/28/20 cholecalciferol (vitamin D3) 50 mcg PO DAILY 08/24/19 01/28/20 [Vitamin D3] levothyroxine 112 mcg PO DAILY 08/24/19 01/28/20 magnesium 400 mg PO DAILY 08/24/19 01/28/20 montelukast [Singulair] 10 mg PO DAILY 08/24/19 01/28/20 rizatriptan 10 mg PO PRN 08/24/19 01/28/20 venlafaxine 150 mg PO DAILY 08/24/19 01/28/20 Aimovig Autoinjector 140 mg SUBCUT MONTHLY 11/10/19 01/28/20 riboflavin (vitamin B2) 400 mg PO DAILY 11/10/19 01/28/20 isblhezkas-lxygqlzdnizht-wuni 1 tablet PO Q4H PRN 12/12/19 01/28/20 hyoscyamine sulfate 0.125 mg SUBLINGUAL Q4-5H PRN 01/26/20 01/28/20 Allergies Allergy/AdvReac Type Severity Reaction Status Date / Time Penicillins Allergy Intermediate Unknown Verified 01/28/20 00:22 Sulfa (Sulfonamide Allergy Unknown Unknown Verified 01/28/20 00:22 Antibiotics) tetracycline Allergy Unknown Unknown Verified 01/28/20 00:22 Review of Systems Review of Systems: All systems reviewed & are unremarkable except as noted in HPI and below Constitutional: Constitutional: Denies chills, Denies fever(s) and Denies weakness Gastrointestinal: Gastrointestinal: Reports abdominal pain, Denies diarrhea, Reports nausea and Reports vomiting Genitourinary: Genitourinary: Denies nocturia, Denies dysuria and Denies flank pain PMFSH Past Medical History Medical History Depression with anxiety Elevated liver enzymes Hypertension Hypothyroidism Migraines Recurrent acute pancreatitis Upper abdominal pain Surgical History Surgical History History of carpal tunnel release of both wrists History of section History of endometrial ablation (~11/2010) For menometrorrhagia. Family History Family History Mother Glaucoma Acute myocardial infarction Chronic obstructive pulmonary disease Diabetes mellitus Father Cerebrovascular accident Lung cancer Hypertension Sibling Asthma Sibling Cerebrovascular accident Social History Social History Social History: The patient is and lives at home with her and their 2 children in [place]. 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 She smoked 1/2 a pack of cigarettes and quit in 1999. She very rarely will consume alcohol, and typically avoids it as it gives her migraines. No illicit substance use. Her , Hugo, is her surrogate decision maker and she wishes to be a full code. Smoking packs per day: 0.5 Smoking cigarettes per day: 10.0 Smoking status: Never smoker Tobacco type: cigarettes Smoking end date: 12/12/19 Alcohol intake: never Substance use: never Gender identity (if verbalized by the patient): Female Spiritual care concerns: No Exam Narrative: Exam Narrative: GENERAL: Uncomfortable-appearing, well-nourished, and in no acute distress. HEAD: Normocephalic, atraumatic. CHEST: Clear to auscultation. No respiratory distres
--- NOTE | 2020-01-27 21:11 | PC.NURSE ---
Redrawing lipase at this time.
[2020-01-27] MEDS: metroNIDAZOLE 500 MG/ISO 100ML 500 MG/100 ML BAG 100 MG IVPB (22:02)
--- NOTE | 2020-01-27 22:02 | PM.IMHP ---
H&P: HPI History of Present Illness Date/Time: 01/27/20 22:02 Chief complaint: cholecystitis, pancreatitis Narrative: Cara Montesinos is a 49 year old female past medical history of recurrent pancreatitis, anxiety, seasonal allergies, hypothyroidism, asthma, migraines presents to the ED with complaints of abdominal pain. Patient has a same recurrent epigastric pain associated with nausea and vomiting as her previous pancreatitis episodes. She came to the ER yesterday with the same complaints and with mild elevation of lipase and stable labs she was sent home. She now returns with worsening epigastric pain. She was admitted 12/11-12/12 treated with supportive care for pancreatitis with lipase of 14,000. She had EUS at [facility] on 01/16/2020 with no acute findings to explain her symptoms. Recommended to continue follow-up with pancreas specialist in [place], completing IgG4 testing for autoimmune pancreatitis, and suggestion for genetic testing for hereditary pancreatitis. In the ED: Lipase is very elevated >300. CT abdomen showed mild intrahepatic biliary duct dilatation, borderline dilation of common bile duct and pancreatic duct. There was mildly dilated gallbladder with mild wall thickening and may be pericolic fluid. Dr. Manzano general surgery was consulted for possible cholecystectomy. Patient was given a dose of Levaquin Flagyl antibiotics, morphine for pain, IV fluids to 100 cc/hour normal saline. Patient admitted for pancreatitis and possible cholecystectomy. Review of Systems Review of Systems: Narrative: Constitutional: No Fever, No Chills, No Night Sweats, No Fatigue, No Malaise ENT/Mouth: No Hearing Changes, No Ear Pain, No Nasal Congestion, No Sinus Pain, No Hoarseness, No sore throat, No Rhinorrhea, No Swallowing Difficulty Eyes: No Eye Pain, No Redness, No Vision Changes Cardiovascular: No Chest Pain, No Palpitations, No Dyspnea on Exertion, No Orthopnea, No Claudication, No Edema Respiratory: No Cough, No Sputum, No Wheezing, No Shortness of Breath Gastrointestinal: Endorses nausea/vomiting/epigastric pain. No Diarrhea, No Constipation, No Heartburn, No Hematochezia, No Melena Genitourinary: No Dysuria, No Urinary Frequency, No Hematuria, No Urinary Incontinence, No Urgency Musculoskeletal: No Arthralgias, No Myalgias, No Joint Swelling, No Joint Stiffness, No Back Pain Skin: No Skin Lesions, No Pruritis, No Hair Changes Neuro: No Weakness, No Numbness, No Paresthesias, No Loss of Consciousness, No Syncope, No Dizziness, No Headache Psych: No Anxiety/Panic, No Depression, No Insomnia Heme: No Bruising, No Bleeding Lymph: No Adenopathy Endocrine: No Polyuria, No Polydipsia, No Temperature Intolerance [facility] Past Medical History Medical History Depression with anxiety Elevated liver enzymes Hypertension Hypothyroidism Migraines Recurrent acute pancreatitis Upper abdominal pain Surgical History Surgical History History of carpal tunnel release of both wrists History of section History of endometrial ablation (~11/2010) For menometrorrhagia. Family History Family History Mother Glaucoma Acute myocardial infarction Chronic obstructive pulmonary disease Diabetes mellitus Father Cerebrovascular accident Lung cancer Hypertension Sibling Asthma Sibling Cerebrovascular accident Social History Social History Social History: The patient is and lives at home with her and their 2 children in [place]. 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 She smoked 1/2 a pack of cigarettes and quit in 1999. She very rarely will consume alcohol, and typically avoids it as it gives her migraines. No illicit substance use. Her , Hugo, is her
[2020-01-27] MEDS: levoFLOXacin 500 MG/D5W 100 ML 500 MG/100 ML BAG 100 MG IVPB (23:05)
--- NOTE | 2020-01-28 | ADMGEN ---
This patient, Cara Montesinos, was admitted to Medical Room 345-. Patient/family oriented to hospital policies and general routines including ID bracelet, bed and alarms, visiting hours, pain management, procedures, bathroom and other care routines, personal items, smoking policy, room service/diet, and visiting hours. Information on how to activate the Rapid Response Team has been discussed. Patient/Family are encouraged to report perceived risks to care and to ask questions if they do not understand what they are told or what they should do.
[2020-01-28] MEDS: SODIUM CHLORIDE 0.9% IV 1,000 ML 200 ML IV CONT ×2 (00:03→05:08)
[2020-01-28 00:09] VITALS: BP 126/68; PULSE 68; RESP 14; TEMP 36.7; O2SAT 100
[2020-01-28 00:13] VITALS: BMI 27.2
[2020-01-28 05:50] VITALS: BP 142/72; PULSE 68; RESP 12; TEMP 36.6; O2SAT 97
[2020-01-28] MEDS: SODIUM CHLORIDE 0.9% IV 1,000 ML 100 ML IV CONT ×2 (10:03→20:03)
[2020-01-28 10:42] LABS: Lipase > 40000 U/L (23-300)
[2020-01-28 10:47] LABS: Hematocrit 37.1 % (37.0-47.0); Hemoglobin 12.3 g/dL (12.0-15.0); Mean Corpuscular HGB Conc 33.2 g/dl (32-36); Mean Corpuscular Hemoglobin 29.9 pg (26-34); Mean Corpuscular Volume 90.3 fl (80-100); Platelet Count Result 357 k/mm3 (150-375); Red Blood Count 4.11 M/mm3 (4.2-5.4); Red Cell Distribution Width 12.4 % (11.5-14.5); White Blood Count 9.8 K/mm3 (4.5-10.0)
[2020-01-28 10:58] LABS: Alanine Aminotransferase 232 U/L (4-35); Albumin Level 3.6 g/dL (3.5-5.1); Alkaline Phosphatase 135 U/L (38-126); Aspartate Amino Transferase 200 U/L (14-36); Bilirubin,Total 0.4 mg/dL (0.2-1.3)
--- NOTE | 2020-01-28 10:59 | PM.IMPN ---
Progress Note: A&P Assessment and Plan (1) Recurrent acute pancreatitis: Code(s): K85.90 - Acute pancreatitis without necrosis or infection, unspecified Status: Acute Assessment and Plan: Presented with epigastric pain. Recurrent episodes of pancreatitis started in August with recent admission 12/12/2019. She underwent EUS with specialist in [place] which was negative. Recommendations for genetic testing follow up. There was an MRCP that showed interstitial pancreatitis with normal biliary tree and no choledocholithiasis at the time. Patient now has new signs and symptoms of cholecystitis with dilated ducts seen on CT a/p. She has leukocytosis, transaminitis, and elevated lipase consistent with pancreatitis. Endorsing epigastric pain 04/23. Leukocytosis has resolved. Lipase improving. General surgery Dr. Manzano consulted. Plans for cholecystectomy tomorrow pending improving pancreatitis. If after cholecystectomy her pancreatitis episodes do not resolve she will need genetic testing. Continue analgesics and antiemetics IV fluids normal saline 100 ml/hr She received levaquin and flagyl in ED but at this time no signs of sepsis or necrotic pancreas Trend lipase (2) Elevated liver enzymes: Code(s): R74.8 - Abnormal levels of other serum enzymes Status: Acute Assessment and Plan: Suspect secondary to cholelithiasis/cholecystitis. CT showed dilation of CBD. LFTs have improved today which could correlate with migration of stone. RUQ US shows cholelithiasis and borderline dilation of CBD. Total bili mildly elevated yesterday and now wnl. Trend LFTs (3) Hypothyroidism: Qualifiers: Hypothyroidism type: unspecified Qualified Code(s): E03.9 - Hypothyroidism, unspecified Code(s): E03.9 - Hypothyroidism, unspecified Status: Chronic Assessment and Plan: Continue levothyroxine (4) Migraines: Code(s): G43.909 - Migraine, unspecified, not intractable, without status migrainosus Status: Acute Assessment and Plan: History of migraines controlled on medication. Denies headache or migraine at this time. Continue analgesics as needed. Subjective Date/time seen: 01/28/20 10:59 Interval history: Date of service: 01/28/2020 Cara Montesinos is a 49-year-old female with history of recurrent pancreatitis allergies, hypothyroidism, asthma, and migraines who is seen in follow-up for recurrent pancreatitis. She is doing well today. She currently reports pain as 3/10 in the epigastric region radiating through to the back. She is feeling better. She has not had any further episodes of nausea or vomiting. She denies abdominal cramping or bloating. She denies fevers, chills, dizziness, lightheadedness, headaches, or body aches. No shortness of breath. She has been urinating without difficulty. Last bowel movement was yesterday. She is in good spirits. She has no additional concerns Review of Systems Review of Systems: All systems reviewed & are unremarkable except as noted in HPI and below Exam Narrative: Exam Narrative: Ms. Montesinos is a well-nourished 49-year-old female who is lying supine in bed. She appears comfortable and is in NARD. HR 68, BP 142/72, RR 12, T 97.8?, 97% on room air Neuro: awake, alert and oriented x4, speech clear, no focal neuro deficits noted HEENMT: normocephalic, atraumatic, EOMI, sclerae anicteric, moist oral mucosa, tongue midline, nares patent Neck: supple, no lymphadenopathy Respiratory: clear to auscultation bilaterally, nonlabored breathing Cardio: regular rate, regular rhythm with S1-S2 Abdomen: nondistended, normoactive bowel sounds, soft, tenderness to palpation of epigastric region and RUQ, Angeles's sign positive Extremities: no edema, erythema, cyanosis, clubbing, or tenderness to palpation, DP pulses 2+ bilaterally Skin: no rashes or lesions, warm and dry Psych: appropriate mood and affect,
[2020-01-28 11:04] LABS: Alanine Aminotransferase 229 U/L (4-35); Albumin Level 3.5 g/dL (3.5-5.1); Alkaline Phosphatase 133 U/L (38-126); Anion Gap 4 mmol/L (8-16); Aspartate Amino Transferase 203 U/L (14-36); Bilirubin,Total 0.5 mg/dL (0.2-1.3); Blood Urea Nitrogen 10 mg/dL (7-17); Calcium 8.1 mg/dL (8.4-10.2); Carbon Dioxide 25 mmol/L (22-30); Chloride 107 mmol/L (98-107); Estimated CRCL calculation 110 ml/min; Estimated Glomerular Filt Rate > 60; Glucose 86 mg/dL (65-105); Potassium 3.7 mmol/L (3.4-5.0); Sodium 136 mmol/L (137-145)
--- NOTE | 2020-01-28 11:23 | PM.CNGS ---
Assessment and Plan Assessment and plan (1) Recurrent acute pancreatitis: Code(s): K85.90 - Acute pancreatitis without necrosis or infection, unspecified Status: Acute Assessment and Plan: I have reviewed the CT as well as the prior MRI and ultrasounds. Workup thus far has not showed any evidence of cholelithiasis, but it has been about 5 months since her last ultrasound. She has elevated liver enzymes and findings on the CT suggestive of acute cholecystitis. I would like to repeat an ultrasound today and repeat her labs. Her multiple episodes of pancreatitis seemed to be likely related to gallbladder disease or some other rare form of recurrent pancreatitis. Since her symptoms were happened acutely after eating pizza, I think it would be reasonable to consider proceeding with laparoscopic cholecystectomy even if she does not have evidence of cholelithiasis on imaging. I have recommended to continue bowel rest and IV hydration, but as her pancreatitis resolves I would recommend proceeding with laparoscopic cholecystectomy with intraoperative cholangiogram during this hospitalization. I have discussed the procedure, risks, benefits, and alternatives. Will plan to proceed with surgery tomorrow as long as she is showing signs of resolving pancreatitis. (2) Elevated liver enzymes: Code(s): R74.8 - Abnormal levels of other serum enzymes Status: Acute (3) Abnormal CT of the abdomen: Code(s): R93.5 - Abnormal findings on diagnostic imaging of other abdominal regions, including retroperitoneum Status: Acute History of Present Illness Consult details Consult date: 01/28/20 Reason for consult: abdominal pain Requesting physician: Dez Brown MD Narrative: This is a 49-year-old woman who presents with recurrent epigastric and right upper quadrant abdominal pain. 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 She has had several episodes of this over the past year. She has had extensive workup of this in the past. A previous gallbladder ultrasound was negative, and then she subsequently had an abdominal MRI which only showed acute interstitial pancreatitis but no biliary or gallbladder abnormalities. She was then referred to [facility] for endoscopic ultrasound which she reports was also negative. These records are not available for my review currently. Over the weekend she had another acute attack and this seemed to happen after she had eaten pizza. She has had epigastric pain with nausea and vomiting. A CT of the abdomen and pelvis in the emergency department last night showed evidence of gallbladder distention and possible pericholecystic fluid and intrahepatic biliary dilatation. She has now been admitted for further treatment. She does state that her pain is somewhat better this morning but she still is having some tenderness on palpation. She denies any history of heavy alcohol use. Review of Systems Review of Systems: All systems reviewed & are unremarkable except as noted in HPI and below Constitutional: Constitutional: Denies chills and Denies fever(s) Eyes: Eyes: Denies change in vision ENT: Denies hearing loss, Denies neck pain and Denies sore throat Cardiovascular: Cardiovascular: Denies chest pain and Denies dyspnea Respiratory: Respiratory: Denies cough, Denies dyspnea and Denies wheezing Gastrointestinal: Gastrointestinal: Reports as per HPI Genitourinary: Genitourinary: Denies hematuria and Denies dysuria Musculoskeletal: Musculoskeletal: Denies arthralgias, Denies joint swelling and Denies neck pain Allergic/Immunologic: Allergic/Immunologic: Denies wheezing [facility] Past Medical History Medical History Depression with anxiety Elevated liver enzymes Hypertension Hypothyroidism Migraines Recurrent acute pancreatitis Upper abdominal pain Surgical History Surgical History (Reviewed 01/28/20 @ 1
[2020-01-28 11:27] LABS: Lipase 7411 U/L (23-300)
[2020-01-28 14:00] VITALS: BP 143/67; PULSE 72; RESP 16; TEMP 36.2; O2SAT 98
[2020-01-28] MEDS: VENLAFAXINE HCL XR 75 MG CAP.ER.24H 150 MG PO (17:32)
[2020-01-28 20:53] VITALS: BP 132/66; PULSE 72; RESP 14; TEMP 36.9; O2SAT 100
[2020-01-29] VITALS (10 sets, daily range): BP systolic 122–140; BP diastolic 61–75; PULSE 63–83; RESP 14–18; TEMP 36.4–37.3; O2SAT 96–100
[2020-01-29] MEDS: SODIUM CHLORIDE 0.9% IV 1,000 ML 100 ML IV CONT (06:06)
[2020-01-29 06:10] LABS: Hematocrit 34.6 % (37.0-47.0); Hemoglobin 11.5 g/dL (12.0-15.0); Mean Corpuscular HGB Conc 33.2 g/dl (32-36); Mean Corpuscular Volume 90.3 fl (80-100); Mean Platelet Volume 9.2 fl (7.4-10.4); Platelet Count Result 328 k/mm3 (150-375); Red Blood Count 3.83 M/mm3 (4.2-5.4); Red Cell Distribution Width 12.2 % (11.5-14.5); White Blood Count 8.4 K/mm3 (4.5-10.0)
[2020-01-29 06:36] LABS: Alanine Aminotransferase 147 U/L (4-35); Albumin Level 3.3 g/dL (3.5-5.1); Alkaline Phosphatase 109 U/L (38-126); Anion Gap 3 mmol/L (8-16); Aspartate Amino Transferase 82 U/L (14-36); Bilirubin,Total 0.4 mg/dL (0.2-1.3); Blood Urea Nitrogen 5 mg/dL (7-17); Calcium 8.2 mg/dL (8.4-10.2); Carbon Dioxide 27 mmol/L (22-30); Chloride 110 mmol/L (98-107); Estimated CRCL calculation 110 ml/min; Estimated Glomerular Filt Rate > 60; Glucose 88 mg/dL (65-105); Lipase 1986 U/L (23-300); Potassium 3.6 mmol/L (3.4-5.0); Sodium 140 mmol/L (137-145)
--- NOTE | 2020-01-29 11:32 | PM.IMPN ---
Progress Note: A&P Assessment and Plan (1) Recurrent acute pancreatitis: Code(s): K85.90 - Acute pancreatitis without necrosis or infection, unspecified Status: Acute Assessment and Plan: Presented with epigastric pain. Recurrent episodes of pancreatitis started in August with recent admission 12/12/2019. She underwent EUS with specialist in [place] which was negative. Recommendations for genetic and autoimmune testing for follow up. There was an MRCP that showed interstitial pancreatitis with normal biliary tree and no choledocholithiasis at the time. RUQ US showed cholelithiasis with positive sonographic Angeles sign and borderline common bile duct dilation. Lipase was markedly elevated at >40,000 at admission and has improved to 1986 today. LFTs are also improving. Leukocytosis resolved and she is afebrile. General surgery Dr. Manzano consulted. Plan is for possible cholecystectomy today. If these episodes do not resolve following cholecystectomy, she will require further workup with genetic and autoimmune testing. Continue analgesics and antiemetics IV fluids normal saline 100 ml/hr She received levaquin and flagyl in ED but at this time no signs of sepsis or necrotic pancreas so antibiotics were discontinued Trend lipase (2) Elevated liver enzymes: Code(s): R74.8 - Abnormal levels of other serum enzymes Status: Acute Assessment and Plan: Suspect secondary to cholelithiasis/cholecystitis. CT showed dilation of CBD. LFTs continue to improve and correlate with migration of stone. RUQ US shows cholelithiasis and borderline dilation of CBD. Hepatitis panel was negative 11/12/19. Trend LFTs (3) Hypothyroidism: Qualifiers: Hypothyroidism type: unspecified Qualified Code(s): E03.9 - Hypothyroidism, unspecified Code(s): E03.9 - Hypothyroidism, unspecified Status: Chronic Assessment and Plan: Continue levothyroxine (4) Migraines: Code(s): G43.909 - Migraine, unspecified, not intractable, without status migrainosus Status: Acute Assessment and Plan: History of migraines controlled on medication. Continue analgesics as needed. Subjective Date/time seen: 01/29/20 11:32 Mrs. Montesinos is a 49 y.o. female with PMH significant for recurrent pancreatitis, hypothyroidism, asthma, and migraines who is seen in follow-up for acute pancreatitis. She is doing much better today. She endorses some residual LUQ/epigastric pain which radiates to the back but notes significant improvement compared to pain on admission. She is NPO in anticipation of possible surgery today. She tolerated clear liquids yesterday. She is passing flatus and had four loose bowel movements yesterday. She is not having any nausea or vomiting today. She denies chest pain and dyspnea. Review of Systems Review of Systems: All systems reviewed & are unremarkable except as noted in HPI and below Exam Narrative: Exam Narrative: General: Very pleasant, well-developed and well-nourished 49 y.o. female who is lying semi-recumbent in bed in no acute distress. HEENT: Normocephalic and atraumatic. Sclera anicteric. EOMI. Oral mucosa dry. Neck: Supple. Cardiac: Regular rate and rhythm. S1 and S2 normal. Lungs: Effort normal. Lungs are clear to auscultation bilaterally. Abdomen: Bowel sounds are normoactive. Abdomen is soft, non-distended, and mildly tender to the RUQ, LUQ, and epigastrium. No guarding or rebound tenderness. Extremities: No lower extremity edema, cyanosis, or calf tenderness. DP and PT 2+ bilaterally. Neurological: Aler. No focal neurological deficits noted to casual conversation. Speech is clear. Skin: Warm and dry. Psychiatric: Judgment and insight intact. Pleasant mood and appropriate affect. Objective Data Vital Signs Vital Signs: Vital Signs - 24 hr 01/28/20 14:00 01/28/20 20:53 Temperature 97.2 F L 98.5 F Pulse Rate 72 72 Respiratory R
[2020-01-29] MEDS: LACTATED RINGERS 1,000 ML 30 ML IV CONT ×2 (14:00→17:01)
--- NOTE | 2020-01-29 14:27 | WPDANESEPPF ---
Anes - Initial Pre Proc Eval Procedure: Operation Date: 01/29/20 15:00 Proposed Procedures p Laparoscopic Cholecystectomy - Bryn Manzano DO Date/Time: 01/29/20 14:27 Surgeon: Jose Juan Pre Op Diagnosis: cholecystitis, pancreatitis Patient Data Age: 49 Gender: F Height: 1.63 m Weight: 72 kg Last Vital Signs Temp 37.3 C 01/29/20 14:00 Pulse 83 01/29/20 14:00 Resp 16 01/29/20 14:00 BP 129/75 01/29/20 14:00 Pulse Ox 99 01/29/20 14:00 Allergies Allergy/AdvReac Type Severity Reaction Status Date / Time Penicillins Allergy Intermediate Unknown Verified 01/28/20 00:22 Sulfa (Sulfonamide Allergy Unknown Unknown Verified 01/28/20 00:22 Antibiotics) tetracycline Allergy Unknown Unknown Verified 01/28/20 00:22 Home Medications Medication Instructions Recorded Confirmed Type alprazolam 0.5 mg PO BID PRN 08/24/19 01/28/20 History cetirizine 10 mg PO DAILY 08/24/19 01/28/20 History cholecalciferol (vitamin D3) 50 mcg PO DAILY 08/24/19 01/28/20 History [Vitamin D3] levothyroxine 112 mcg PO DAILY 08/24/19 01/28/20 History magnesium 400 mg PO DAILY 08/24/19 01/28/20 History montelukast [Singulair] 10 mg PO DAILY 08/24/19 01/28/20 History rizatriptan 10 mg PO PRN 08/24/19 01/28/20 History venlafaxine 150 mg PO DAILY 08/24/19 01/28/20 History Aimovig Autoinjector 140 mg SUBCUT MONTHLY 11/10/19 01/28/20 History riboflavin (vitamin B2) 400 mg PO DAILY 11/10/19 01/28/20 History nstuzogicv-qcqdyhxxsnrot-kpke 1 tablet PO Q4H PRN 12/12/19 01/28/20 History hyoscyamine sulfate 0.125 mg SUBLINGUAL Q4-5H PRN 01/26/20 01/28/20 History hydrocodone-acetaminophen 1 tablet PO Q6H PRN #10 tablet 01/27/20 01/28/20 Rx ondansetron 4 mg PO Q6H PRN #10 tablet 01/27/20 01/28/20 Rx Laboratory Tests 01/29/20 01/29/20 05:50 05:50 WBC 8.4 K/mm3 K/mm3 (4.5-10.0) RBC 3.83 M/mm3 L M/mm3 (4.2-5.4) Hgb 11.5 g/dL L g/dL (12.0-15.0) Hct 34.6 % L % (37.0-47.0) MCV 90.3 fl fl (80-100) MCH 30.0 pg pg (26-34) MCHC 33.2 g/dl g/dl (32-36) RDW 12.2 % % (11.5-14.5) Plt Count 328 k/mm3 k/mm3 (150-375) MPV 9.2 fl fl (7.4-10.4) Sodium 140 mmol/L mmol/L (137-145) Potassium 3.6 mmol/L mmol/L (3.4-5.0) Chloride 110 mmol/L H mmol/L (98-107) Carbon Dioxide 27 mmol/L mmol/L (22-30) Anion Gap 3 mmol/L L mmol/L (8-16) BUN 5 mg/dL L D mg/dL (7-17) Creatinine 0.50 mg/dL L mg/dL (0.7-1.0) Estim Creat Clear Calc 110 ml/min ml/min Estimated GFR > 60 (59 - ) Glucose 88 mg/dL mg/dL (65-105) Calcium 8.2 mg/dL L mg/dL (8.4-10.2) Total Bilirubin 0.4 mg/dL mg/dL (0.2-1.3) AST 82 U/L H U/L (14-36) ALT 147 U/L H U/L (4-35) Alkaline Phosphatase 109 U/L U/L (38-126) Total Protein 6.0 g/dL L g/dL (6.3-8.2) Albumin 3.3 g/dL L g/dL (3.5-5.1) Lipase 1986 U/L H U/L (23-300) Patient hx anesthesia problems: none Family hx anesthesia problems: none [facility] Past Medical History Medical History Depression with anxiety Elevated liver enzymes Hypertension Hypothyroidism Migraines Recurrent acute pancreatitis Upper abdominal pain Surgical History Surgical History History of carpal tunnel release of both wrists History of section History of endometrial ablation (~11/2010) For menometrorrhagia. Family History Family History Mother Glaucoma Acute myocardial infarction Chronic obstructive pulmonary disease Diabetes mellitus Father Cerebrovascular accident Lung cancer Hypertension Sibling Asthma Sibling Cerebrovascular accident Social History Social History
--- NOTE | 2020-01-29 15:43 | WPDHPUPDATE1 ---
History and Physical Update Update Date/Time: 01/29/20 15:43 History and Physical has been reviewed, including an updated exam of the patient. There are NO changes in the patient's condition. Risks, benefits, and alternatives have been discussed and questions answered. Patient agrees to proceed with procedure.
[2020-01-29] MEDS: CLINDAMYCIN 900 MG/D5W 50 ML 900 MG/50 ML PIGGYBACK 50 MG IVPB (15:51)
--- NOTE | 2020-01-29 17:02 | PM.PROC ---
Procedure Note - Detailed Date of procedure: 01/29/20 Pre-op diagnosis: cholecystitis, pancreatitis Post-op diagnosis: same Procedure performed: Laparoscopic Cholecystectomy with intraoperative cholangiogram Description of procedure: Procedure as well as risks, benefits, and alternatives were discussed with patient. Written consent was obtained and placed in chart prior to procedure. The patient was brought back to surgical suite. Patient was placed in supine position on operating table. Time-out was done to confirm patient and procedure. Patient was then intubated by the anesthesia department. Abdomen was prepped and draped in sterile fashion using chlorhexidine prep. 0.5% bupivacaine with epinephrine was infiltrated at each site of incision. An 11 millimeter vertical incision was made at the inferior portion of the umbilicus using a 15 blade scalpel. Blunt dissection was carried down to the linea alba. The linea alba was then incised using a 15 blade scalpel. The peritoneum was then bluntly entered. An 11 millimeter trocar was inserted and cabon dioxied insuflation was used to create a pneumoperitoneum. The camera was inserted and the abdomen was inspected. The patient was placed in reverse Trendelenberg position and rotated slightly to the left. A 5 millimeter incision was made in the epigastric region, and a 5 millimeter trocar was inserted under direct visualization. Two 5 millimeter incisions were made in the right upper quadrant, and two 5 millimeter trocars were inserted under direct visualization. The gallbladder was identified and grasped at the fundus and retracted superiorly. It was then grasped at the infundibulum retracted laterally. Careful dissection around the neck of the gallbladder was performed using blunt dissection with a [place] grasper and hook electrocautery. The cystic duct was identified, and a window was created behind it. The cystic artery was also identified and a window was created behind it. The critical view of safety was identified, visualizing the cystic duct running directly into the neck of the gallbladder, and the cystic artery running directly into the wall of the gallbladder. The Forbes clamp was placed across the neck of the gallbladder and the Forbes cholangiocatheter was advanced into the distal neck of the gallbladder. The catheter flushed with saline with ease. The patient was flattened out in bed and the intraoperative cholangiogram was obtained with Omnipaque contrast. No signs of biliary obstruction were identified. The patient was then placed back in reverse Trendelenburg position. The cholangiocatheter was removed. A 5 millimeter clip rate quoting operator was then used to place 2 clips proximally and 1 clip distally on both the cystic duct and cystic artery. They were then both transected using endoscopic scissors. Once safely away from the paula hepatitis, the gallbladder was dissected free from the liver bed using hook electrocautery. Hemostasis was achieved along the way. The gallbladder was removed completely and then removed through the subxiphoid port. The liver bed was then inspected. Hemostasis appeared adequate, and our clips appeared secure. The area was gently irrigated with sterile saline. No other abnormalities were seen. The patient was flattened out in bed, and 1 final inspection was made around the abdominal cavity. The ports were then removed under direct visualization, the camera was removed, and the pneumoperitoneum was released. The fascia of the umbilical incision was approximated using an 0 Vicryl rvqhkl-rz-seyif suture. The skin of the incisions was approximated using 4-0 Monocryl subcuticular sutures. Exofin glue was applied on top. The patient was then awakened from anesthesia, extubated, and transferred to recovery. Anesthesia: GETA and local (0.5% bupivicaine with epinephrine) Surgeon: Bryn Manzano DO Estimated blood loss (mL): 5 Pathology: yes Complications: No immediate
[2020-01-29] MEDS: fentaNYL CITRATE INJ (*CRX) 100 MCG/2 ML VIAL 25 MCG IV PUSH ×4 (17:10→17:49)
[2020-01-29] MEDS: HYDROcodone/acetaminophen (*CRX) 5-325 MG TABLET 1 TAB PO (18:32)
[2020-01-29] MEDS: LACTATED RINGERS 1,000 ML 100 ML IV CONT (19:01)
[2020-01-29] MEDS: ONDANSETRON INJ 4 MG/2 ML VIAL IV PUSH (19:01)
[2020-01-29] MEDS: HYDROcodone/acetaminophen (*CRX) 7.5-325 MG TABLET 1 TAB PO (20:53)
[2020-01-29] MEDS: VENLAFAXINE HCL XR 75 MG CAP.ER.24H 150 MG PO (20:53)
[2020-01-30] MEDS: ONDANSETRON INJ 4 MG/2 ML VIAL IV PUSH (00:05)
[2020-01-30 06:00] VITALS: BP 123/52; PULSE 81; RESP 16; TEMP 36.4; O2SAT 98
[2020-01-30 06:00] LABS: Hematocrit 31.4 % (37.0-47.0); Hemoglobin 10.8 g/dL (12.0-15.0); Mean Corpuscular HGB Conc 34.4 g/dl (32-36); Mean Corpuscular Hemoglobin 29.8 pg (26-34); Mean Corpuscular Volume 86.7 fl (80-100); Mean Platelet Volume 9.2 fl (7.4-10.4); Platelet Count Result 360 k/mm3 (150-375); Red Blood Count 3.62 M/mm3 (4.2-5.4); Red Cell Distribution Width 11.9 % (11.5-14.5); White Blood Count 10.8 K/mm3 (4.5-10.0)
[2020-01-30 06:24] LABS: Alanine Aminotransferase 105 U/L (4-35); Albumin Level 3.4 g/dL (3.5-5.1); Alkaline Phosphatase 103 U/L (38-126); Anion Gap 5 mmol/L (8-16); Aspartate Amino Transferase 46 U/L (14-36); Bilirubin,Total 0.3 mg/dL (0.2-1.3); Blood Urea Nitrogen 7 mg/dL (7-17); Calcium 8.4 mg/dL (8.4-10.2); Carbon Dioxide 25 mmol/L (22-30); Chloride 103 mmol/L (98-107); Estimated CRCL calculation 110 ml/min; Estimated Glomerular Filt Rate > 60; Glucose 122 mg/dL (65-105); Lipase 243 U/L (23-300); Magnesium 1.9 mg/dL (1.6-2.3); Potassium 3.5 mmol/L (3.4-5.0); Sodium 133 mmol/L (137-145)
--- NOTE | 2020-01-30 09:39 | PM.DS ---
DS: Admitting Diagnosis Admitting Diagnosis Admitting Diagnosis: Pancreatitis DS: Discharge Diagnosis Discharge Diagnosis (1) Recurrent acute pancreatitis: Code(s): K85.90 - Acute pancreatitis without necrosis or infection, unspecified Status: Acute Assessment and Plan: Presented with epigastric pain. Recurrent episodes of pancreatitis started in August with recent admission 12/12/2019. She had an MRCP 11/12/19 which showed normal biliary tree without choledocholithiasis. She underwent EUS 01/16/20 with pancreatic specialist at [facility] which was negative. Genetic and autoimmune testing were recommended for follow up. On admission, lipase was >40,000. LFTs were elevated. CT abd/pelvis demonstrated mild intrahepatic biliary ductal dilation, borderline common bile duct and main pancreatic duct dilation, and mildly dilated gallbladder with mild wall thickening vs trace pericholecystic fluid. RUQ US showed cholelithiasis with positive sonographic Angeles sign and borderline common bile duct dilation. She was treated with IV fluids. LFTs increased significantly 01/26 suggesting possible biliary obstruction which likely passed on it's own as LFTs improved. General surgery due to concern for biliary pancreatitis. She underwent laparoscopic cholecystectomy 01/29/20. She tolerated the procedure well and had no immediate complications documented. Lipase improved to 243 and LFTs improved significantly with AST 46, ALT 105, and ALP 103 on the day of discharge. She was encouraged to continue outpatient follow-up with her pancreatitis specialist. She will need further testing including genetic/autoimmune testing should her episodes continue despite cholecystectomy. (2) Elevated liver enzymes: Code(s): R74.8 - Abnormal levels of other serum enzymes Status: Acute Assessment and Plan: Improving. Suspect secondary to cholelithiasis/cholecystitis. CT showed dilation of CBD. LFTs improved significantly and correlate with migration of stone. RUQ US showed cholelithiasis and borderline dilation of CBD. Hepatitis panel was negative 11/12/19. She is s/p laparoscopic cholecystectomy. Plan for repeat CMP outpatient in 1 week. (3) Hypothyroidism: Qualifiers: Hypothyroidism type: unspecified Qualified Code(s): E03.9 - Hypothyroidism, unspecified Code(s): E03.9 - Hypothyroidism, unspecified Status: Chronic Assessment and Plan: TSH 12/13/19 is 3.38. Levothyroxine will be continued. (4) Migraines: Code(s): G43.909 - Migraine, unspecified, not intractable, without status migrainosus Status: Acute Assessment and Plan: The pt has a history of migraines. Analgesics were continued. DS: Summary Hospital Course Reason for hospitalization: Pancreatitis Hospital Course: Discharge Summary (Date of service 01/30/20): Mrs. Montesinos is a 49 y.o. female with PMH significant for recurrent pancreatitis, hypothyroidism, asthma, and migraines who presented to the emergency department 01/27/20 for the evaluation of epigastric pain which was consistent with her prior episodes of pancreatitis. Recurrent episodes of pancreatitis started in August with recent admission 12/12/2019. She had an MRCP 11/12/19 which showed normal biliary tree without choledocholithiasis. She underwent EUS 01/16/20 with pancreatic specialist at [facility] which was negative. Genetic and autoimmune testing were recommended for follow up. On admission to the emergency department, lipase was >40,000. LFTs were elevated. CT abd/pelvis demonstrated mild intrahepatic biliary ductal dilation, borderline common bile duct and main pancreatic duct dilation, and mildly dilated gallbladder with mild wall thickening vs trace pericholecystic fluid. RUQ US showed cholelithiasis with positive sonographic Angeles sign and borderline common bile duct dilation. She was treated with IV fluids. LFTs increased significantly 01/26 suggesting possible biliary obstruction whi
[2020-01-30] MEDS: LEVOTHYROXINE SODIUM 112 MCG TABLET PO (09:53)
--- NOTE | 2020-01-30 10:16 | PM.PNGS ---
Progress Note: A&P Assessment and Plan (1) Cholecystitis with cholelithiasis: Code(s): K80.10 - Calculus of gallbladder with chronic cholecystitis without obstruction Status: Acute Assessment and Plan: Postop day 1 patient is doing well. Labs improving. IOC showed no filling defects or stones in the CBD. Okay to discharge from a surgical standpoint. Discussed discharge instructions with the patient. Answered all questions. Will follow up in 2 weeks in the office. (2) Recurrent acute pancreatitis: Code(s): K85.90 - Acute pancreatitis without necrosis or infection, unspecified Status: Acute Assessment and Plan: Lipase normal today. See plan above. (3) Elevated liver enzymes: Code(s): R74.8 - Abnormal levels of other serum enzymes Status: Acute Assessment and Plan: AST and ALT trending towards normal. Total bilirubin and alk-phos normal. Subjective Subjective Date/Time Seen: 01/30/20 09:16 Post Op day: 1 (Laparoscopic cholecystectomy with IOC) Patient reports: no new complaints, feels better, tolerating a regular diet, voiding w/o difficulty, flatus and no bowel movement Interval history: Patient seen and examined. Feels well today. Minimal soreness at incisions, but overall tolerable. Reports flatus but no BM. Tolerating her diet without any complaints of nausea, vomiting, or bloating. No other complaints at this time. Review of Systems Review of Systems: All systems reviewed & are unremarkable except as noted in HPI and below Constitutional: Constitutional: Reports no additional constitutional complaints, Denies chills and Denies fever(s) Cardiovascular: Cardiovascular: Reports no additional cardiovascular complaints, Denies chest pain, Denies leg edema and Denies dyspnea Respiratory: Respiratory: Reports no additional respiratory complaints, Denies chest congestion, Denies cough and Denies dyspnea Gastrointestinal: Gastrointestinal: Reports as per HPI and Reports no additional gastrointestinal complaints Exam Const: General: comfortable, no acute distress, alert and awake Orientation/consciousness: patient oriented x3 Resp: Effort & Inspection: normal respiratory effort and able to speak in complete sentences Auscultation: clear to auscultation bilaterally Cardio: Rate: regular rate Rhythm: regular rhythm GI: Inspection: non-distended and incision (Abdominal incisions clean and dry, glue intact.) GI Palp: Yes Soft to palpation, Yes Tenderness to palpation present (GI) (Incisional), No Guarding due to palpation present (GI), No Hernia present and No Rebound tenderness present Auscultation: normal bowel sounds Skin: General skin exam: normal color Neuro: General: patient oriented x3 and moves all extremities Cranial nerves: Yes CN's II-XII intact bilaterally Speech: normal speech Extrem: General: no calf tenderness and no edema Psych: Mental Status: mental status grossly normal Attitude: cooperative Thought process: Normal thought process present Thought content: Yes Normal thought content present Objective Data Vital Signs Vital Signs: Vital Signs - 24 hr 01/29/20 14:00 01/29/20 17:01 01/29/20 17:15 Temperature 99.2 F 97.7 F Pulse Rate 83 81 63 Respiratory Rate 16 18 18 Blood Pressure 129/75 137/75 138/73 Pulse Oximetry 99 99 100 01/29/20 17:30 01/29/20 17:45 01/29/20 18:10 Temperature 98.8 F Pulse Rate 63 66 71 Respiratory Rate 18 18 18 Blood Pressure 140/68 132/68 127/61 Pulse Oximetry 100 96 96 01/29/20 18:25 01/29/20 18:54 01/29/20 20:47 Temperature 98.3 F 97.8 F 97.6 F Pulse Rate 70 68 74 Respiratory Rate 18 16 14 Blood Pressure 122/67 132/67 134/71 Pulse Oximetry 100 98 99 01/29/20 20:49 01/30/20 06:00 Temperature 97.6 F 97.6 F Pulse Rate 74 81 Respiratory Rate 14 16 Blood Pressure 134/71 123/52 L Pulse Oximetry 99 98 Intake/Output Intake/Output: Intake & Output 01/27/20 01/28/20 01/29/2001/29
--- NOTE | 2020-01-30 14:01 | WPDANESPN ---
Anes - Prog Note Post-Op Date/Time: 01/30/20 14:01 Cardiovascular status: normal Respiratory status: normal Airway patency: baseline Mental status: baseline Post-Op hydration status: normal Vital Signs: Last Vital Signs Temp 36.4 C 01/30/20 06:00 Pulse 81 01/30/20 06:00 Resp 16 01/30/20 06:00 BP 123/52 L 01/30/20 06:00 Pulse Ox 98 01/30/20 06:00 Pain Score (VAS): 0/10. Patient resting in bed at time of assessment, appears comfortable. I/O: Intake & Output 01/29/20 01/30/20 01/30/20 23:59 07:59 15:59 Intake Total 1240 750 100 Output Total 1000 Balance 1240 -250 100 Laboratory Tests 01/30/20 05:48 01/30/20 05:48 01/30/20 01/30/20 05:48 05:48 WBC 10.8 H RBC 3.62 L Hgb 10.8 L Hct 31.4 L MCV 86.7 MCH 29.8 MCHC 34.4 RDW 11.9 Plt Count 360 MPV 9.2 Sodium 133 L Potassium 3.5 Chloride 103 Carbon Dioxide 25 Anion Gap 5 L BUN 7 Creatinine 0.50 L Estim Creat Clear Calc 110 Estimated GFR > 60 Glucose 122 H Calcium 8.4 Magnesium 1.9 Total Bilirubin 0.3 AST 46 H ALT 105 H Alkaline Phosphatase 103 Total Protein 6.0 L Albumin 3.4 L Lipase 243 Post-procedural complaints: nausea (relief with PRN meds) Patient Feedback: Patient satisfied with anesthetic care.
== END 2020-01-30 12:20 | disposition home or self-care (01) ==
LOC: ANHED 22:13 → ANH3MED 22:57
PROVIDERS: Physician Assistant; Surgery; Admitting Provider Student in an Organized Health Care Education/Training Program; Emergency Provider Emergency Medicine; PCP Family Medicine; Visit Provider Physician Assistant
PROC: 0FT44ZZ Resection of Gallbladder, Percutaneous Endoscopic Approach (ICD-10-PCS; CPT 47562; principal; 2020-01-29 15:00)
DX: K80.10 Calculus of gallbladder with chronic cholecystitis without obstruction (principal); K85.90 Acute pancreatitis without necrosis or infection, unspecified; K82.8 Other specified diseases of gallbladder; R74.8 Abnormal levels of other serum enzymes; E03.9 Hypothyroidism, unspecified; G43.909 Migraine, unspecified, not intractable, without status migrainosus; J45.909 Unspecified asthma, uncomplicated; I10 Essential (primary) hypertension; F41.8 Other specified anxiety disorders
CPT/HCPCS: 47563; 36415; 74300; 76705; 80053; 80076; 80307; 81001; 81025; 83690; 83735; 85025; 85027; 87086; 87088; 88304; 96360; 96361; 96365; 96374; 96375; 96376; 99285; A9270; G0378; J0131; J1100; J1885; J1956; J2250; J2270; J2405; J2704; J2710; J3010; J7030; J7120; Q9966

== ENCOUNTER 2020-03-19 14:11 | Outpatient (CLI) | payer OTHER, SELFPAY ==
--- NOTE | ~2020-03-19 | MM_ITS ---
EXAMINATION: MM screening [facility] BI w henry HISTORY: Screening mammogram TECHNIQUE: Craniocaudal and mediolateral oblique 3-D tomosynthesis images were obtained and synthetic 2-D images were generated. CAD analysis was submitted and interpreted. COMPARISON: 02/08/2019, 02/03/2018, 01/15/2017 BREAST PARENCHYMAL COMPOSITION: The breasts are heterogeneously dense, which may obscure small masses . FINDINGS: There is no evidence of suspicious mass, calcification, or architectural distortion to sugg est malignancy in either breast. There has been no suspicious interval change. IMPRESSION: 1. No mammographic evidence of malignancy. 2. Recommend routine screening mammography in one year. BI-RADS Category 1: Negative Reviewed, dictated and finalized at location A. MACHINE OPERATOR
== END 2020-03-19 14:12 | disposition home or self-care (01) ==
LOC: ANHIMG 14:16
PROVIDERS: PCP Family Medicine; Visit Provider Obstetrics & Gynecology
DX: Z12.31 Encounter for screening mammogram for malignant neoplasm of breast (principal)
CPT/HCPCS: 77063; 77067

== ENCOUNTER → 2020-12-17 02:45 | Outpatient (CLI) | payer OTHER, SELFPAY ==
[2020-12-17 17:30] LABS: SARS-CoV-2 RNA PCR Negative
== END ==
PROVIDERS: PCP Family Medicine; Visit Provider Physician Assistant
DX: Z20.822 Contact with and (suspected) exposure to COVID-19 (principal)
CPT/HCPCS: C9803; U0003; U0005

== ENCOUNTER 2021-04-30 07:57 | Outpatient (CLI) | payer OTHER, SELFPAY ==
--- NOTE | ~2021-04-30 | MM_ITS ---
EXAMINATION: MM screening [facility] BI w henry HISTORY: Screening mammogram TECHNIQUE: Craniocaudal and mediolateral oblique 3-D tomosynthesis images were obtained and synthetic 2-D images were generated. CAD analysis was submitted and interpreted. COMPARISON: 03/19/2020, 02/08/2019, 02/03/2018 BREAST PARENCHYMAL COMPOSITION: The breasts are heterogeneously dense, which may obscure small masses . FINDINGS: There is no suspicious mass, calcification, or architectural distortion to suggest malignan cy in either breast. There has been no suspicious interval change. IMPRESSION: 1. No mammographic evidence of malignancy. 2. Recommend routine screening mammography in one year. BI-RADS Category 1: Negative Reviewed, dictated and finalized at location A.
== END 2021-04-30 07:58 | disposition home or self-care (01) ==
LOC: ANHIMG 07:59
PROVIDERS: PCP Family Medicine; Visit Provider Obstetrics & Gynecology
DX: Z12.31 Encounter for screening mammogram for malignant neoplasm of breast (principal)
CPT/HCPCS: 77063; 77067

== ENCOUNTER 2022-04-19 23:26 | Emergency (ER) | payer OTHER, SELFPAY ==
--- NOTE | ~2022-04-19 | XR_ITS ---
EXAMINATION: XR chest 2V DATE: 04/19/2022 23:57 INDICATION: Mid to left-sided chest pain TECHNIQUE: PA and lateral views of the chest were obtained. COMPARISON: Chest radiograph dated 11/10/2019 and 08/24/2019 FINDINGS: Unchanged minimal linear discoid atelectasis/scarring at the lateral left midlung zone. No other airs pace opacities, pulmonary edema, pleural effusion or pneumothorax. The cardiomediastinal silhouette i s normal. 30 degree thoracic dextroscoliosis. Cholecystectomy clips in right upper quadrant. IMPRESSION: 1. No acute cardiopulmonary disease. Reviewed, dictated and finalized at location A. TING MACHINE OPERATOR
--- NOTE | 2022-04-19 23:27 | ECG_ITS ---
Measurements Intervals [place] Rate: 57 P: 50 NV: 167 QRS: 22 QRSD: 88 T: 7 QT: 433 QTc: 423 Interpretive Statements SINUS BRADYCARDIA INCOMPLETE RIGHT BUNDLE BRANCH BLOCK ANTEROSEPTAL INFARCT, AGE INDETERMINATE ST-T WAVE ABNORMALITY IN ANTEROLATERAL LEADS- CONSIDER ISCHEMIA ABNORMAL ECG COMPARED TO ECG 11/10/2019 10:53:10 ST-T WAVE ABNORMALITY NOW PRESENT Electronically Signed On 04-20-2022 6:52:28 SIDE LASTER by Gerry Garcia D.O.
[2022-04-19 23:29] VITALS: BP 140/51; PULSE 62; RESP 18; TEMP 36.3; O2SAT 100
[2022-04-19 23:51] LABS: Basophils Absolute Auto 0.1 K/mm3 (0.0-0.1); Basophils Percent Auto 0.6 % (0.2-1.2); Eosinophils Absolute Auto 0.6 K/mm3 (0-0.3); Eosinophils Percent Auto 5.5 % (0-4.4); Hematocrit 40.5 % (37.0-47.0); Hemoglobin 13.5 g/dL (12.0-15.0); Immature Granulocyte Absolute 0.07 K/mm3 (0.00-0.031); Immature Granulocyte Percent A 0.6 % (0-0.5); Lymphocytes Absolute Auto 3.53 K/mm3 (0.9-3.2); Lymphocytes Percent Auto 32.5 % (18.3-44.2); Mean Corpuscular HGB Conc 33.3 g/dl (32-36); Mean Corpuscular Hemoglobin 30.1 pg (26-34); Mean Corpuscular Volume 90.4 fl (80-100); Monocytes Absolute Auto 0.9 K/mm3 (0.1-0.6); Monocytes Percent Auto 8.3 % (2.6-8.5); Neutrophils Absolute Auto 5.7 K/mm3 (1.3-6.7); Neutrophils Percent Auto 52.5 % (45.5-73.1); Platelet Count Result 386 k/mm3 (150-375); Red Blood Count 4.48 M/mm3 (4.2-5.4); Red Cell Distribution Width 11.9 % (11.5-14.5); White Blood Count 10.9 K/mm3 (4.5-10.0)
[2022-04-20] VITALS (8 sets, daily range): BP systolic 110–131; BP diastolic 62–71; PULSE 38–60; RESP 10–18; O2SAT 98–100
[2022-04-20 00:03] LABS: Alanine Aminotransferase 21 U/L (6-35); Albumin Level 4.7 g/dL (3.5-5.1); Alkaline Phosphatase 85 U/L (38-126); Anion Gap 6 mmol/L (8-16); Aspartate Amino Transferase 35 U/L (14-36); Bilirubin,Total 0.4 mg/dL (0.2-1.3); Blood Urea Nitrogen 12 mg/dL (7-17); Calcium 9.2 mg/dL (8.4-10.2); Carbon Dioxide 30 mmol/L (22-30); Chloride 98 mmol/L (98-107); Estimated CRCL calculation 81 ml/min; Estimated Glomerular Filt Rate > 60; Glucose 100 mg/dL (65-110); Lipase 121 U/L (23-300); Potassium 4.7 mmol/L (3.4-5.0); Sodium 134 mmol/L (137-145)
[2022-04-20 00:04] LABS: INR 1.1; Prothrombin Time 13.3 Seconds (11.1-14.7)
[2022-04-20 00:05] LABS: Partial Thromboplastin Time 30.9 SECONDS (22.3-36.8)
[2022-04-20 00:14] LABS: Troponin I < 0.012 ng/mL (0.000-0.034)
[2022-04-20 04:38] LABS: Troponin I < 0.012 ng/mL (0.000-0.034)
--- NOTE | 2022-04-20 04:46 | ED.GENADULT ---
HPI - General Adult General Chief complaint: Chest Pain Stated complaint: chest pain Time Seen by Provider: 04/20/22 03:54 History of Present Illness HPI narrative: Is a 51-year-old female presenting to ED with chief complaint of chest and abdominal pain. Patient states that she had her typical migraine throughout most of the day. She was taking her Fioricet with minimal relief. She took her 2nd dose of Fioricet on an empty stomach and then started experiencing sharp pain in the epigastric area that radiated into her chest. Is 8/10 in intensity but has since resolved. Patient states pain comes and goes. She says this felt similar to when she has had pancreatitis in the past. no exacerbating or alleviating factors. There is no associated nausea, vomiting, diaphoresis, shortness of breath, fever chills or diarrhea. At this time the patient's pain and symptoms have resolved. Related Data Home Medications Medication Instructions Recorded Confirmed alprazolam 0.5 mg tablet 0.5 mg PO BID PRN Anxiety 08/24/19 02/28/20 cetirizine 10 mg capsule 10 mg PO DAILY 08/24/19 02/28/20 cholecalciferol (vitamin D3) 50 50 mcg PO DAILY 08/24/19 02/28/20 mcg (2,000 unit) capsule (Vitamin D3) levothyroxine 112 mcg tablet 112 mcg PO DAILY 08/24/19 02/28/20 magnesium 200 mg tablet 400 mg PO DAILY 08/24/19 02/28/20 montelukast 10 mg tablet 10 mg PO DAILY 08/24/19 02/28/20 (Singulair) rizatriptan 10 mg tablet 10 mg PO PRN 08/24/19 02/28/20 venlafaxine 150 mg 150 mg PO DAILY 08/24/19 02/28/20 capsule,extended release 24 hr erenumab-aooe 140 mg/mL 140 mg subcut MONTHLY 11/10/19 02/28/20 subcutaneous auto-injector (Aimovig Autoinjector) riboflavin (vitamin B2) 400 mg 400 mg PO DAILY 11/10/19 02/28/20 tablet eedrjoduvg-njkxtnojyioel-cvtwzwhw 1 tablet PO Q4H PRN Pain 12/12/19 02/28/20 50 mg-325 mg-40 mg tablet hyoscyamine sulfate 0.125 mg 0.125 mg sublingual Q4-5H PRN 01/26/20 02/28/20 sublingual tablet Abdominal Pain Allergies Allergy/AdvReac Type Severity Reaction Status Date / Time Penicillins Allergy Intermediate Unknown Verified 02/28/20 14:23 Sulfa (Sulfonamide Allergy Unknown Unknown Verified 02/28/20 14:23 Antibiotics) tetracycline Allergy Unknown Unknown Verified 02/28/20 14:23 [facility] Past Medical History Medical History Depression with anxiety Elevated liver enzymes Hypertension Hypothyroidism Migraines Recurrent acute pancreatitis Upper abdominal pain Surgical History Surgical History History of carpal tunnel release of both wrists History of section History of endometrial ablation (~11/2010) For menometrorrhagia. Hx laparoscopic cholecystectomy 01/27/20 laparoscopic Cholecystectomy with intraoperative cholangiogram Family History Family History Mother Glaucoma Acute myocardial infarction Chronic obstructive pulmonary disease Diabetes mellitus Father Cerebrovascular accident Lung cancer Hypertension Sibling Asthma Sibling Cerebrovascular accident Social History Social History Social History: The patient is and lives at home with her and their 2 children in [place]. 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 She smoked 1/2 a pack of cigarettes and quit in 1999. She very rarely will consume alcohol, and typically avoids it as it gives her migraines. No illicit substance use. Her , Hugo, is her surrogate decision maker and she wishes to be a full code. Smoking packs per day: 0.5 Smoking cigarettes per day: 10.0 Smoking status: Former smoker Tobacco type: cigarettes Smoking end date: 12/12/19 Alcohol intake: never Substance use: never Gender identity (if verbalized by the patient): Female Spiritual care
== END 2022-04-20 05:17 | disposition home or self-care (01) ==
PROVIDERS: Emergency Provider Emergency Medicine; PCP Family Medicine
DX: R10.9 Unspecified abdominal pain (principal); R07.9 Chest pain, unspecified; G43.909 Migraine, unspecified, not intractable, without status migrainosus; E03.9 Hypothyroidism, unspecified; I10 Essential (primary) hypertension; F41.8 Other specified anxiety disorders; Z87.891 Personal history of nicotine dependence
CPT/HCPCS: 36415; 71046; 80053; 83690; 84484; 85025; 85610; 85730; 93005; 99284

== ENCOUNTER 2022-11-26 12:23 | Outpatient (CLI) | payer OTHER, SELFPAY | END 2022-11-26 12:24 | disposition home or self-care (01) | PROVIDERS: PCP Family Medicine; Visit Provider Obstetrics & Gynecology | DX: R10.2 Pelvic and perineal pain (principal) | CPT/HCPCS: 36415; 86850; 86900; 86901 ==

== ENCOUNTER 2022-12-01 01:25 | Day surgery (SDC) | payer OTHER, SELFPAY ==
[2022-11-25 11:00] VITALS: BMI 29.2
--- NOTE | 2022-11-25 11:05 | PC.NURSE ---
Report to the Outpatient Waiting Room, entrance under the green pavilion located off [facility], at time 12:00 on date 12/01/22. Planned Procedure Time: 2:00. Time changes happen often and if your time is changed the preop area will call you the afternoon before. - You and your visitor will be asked to self-screen and do not enter if you have any COVID symptoms. - A mask is optional within the hospital at this time. Patients may have clear liquids (water, carbonated beverages, clear teas, apple juice) until 3 hours prior to surgery (11:00) with a maximum of 20 ounces. - No food from midnight until time of surgery Take the following medications with a SIP of water the morning of surgery: ATENOLOL, LEVOTHYROXINE, VENLAFAXINE, ALPRAZOLAM IF NEEDED DO NOT STOP ANY OF YOUR OTHER PRESCRIPTION MEDICATIONS PRIOR TO SURGERY ?EXCEPT THE FOLLOWING Medications to discontinue per physician: VITAMINS/SUPPLEMENTS Date to take last dose: 11/27/22 Please no make-up, nail kyrgyz, hairspray, perfume, deodorant, or body powder the day of surgery. No jewelry (including any body piercings) or valuables the day of surgery, leave them at home. Please take a shower or bath the night before, or the morning of, surgery with an antibacterial soap. Wear comfortable, loose fitting clothing. - Jewelry must be removed prior to entering the operating room. Rings and piercings that are not removed may be cut off. - The hospital will not accept responsibility for valuables. - Please leave all valuables, including medications, at home the day of surgery. If you are going home after surgery, a licensed gas truck driver must drive you home. - NO public transportation without another adult if you receive anesthesia. - We recommend that an adult stay with you for 24 hours following discharge. - We also recommend that you do not drive, make important decision, drink alcoholic beverages, or take any drugs that were not prescribed by your health care provider for at least 24 hours after your discharge time. Follow any additional instructions given to you from your surgeon. If you or anyone in your household have experienced Covid symptoms in the past week, please notify your surgeon or the nurse liaison at the phone number below for possible testing. Telephone instructions given to PT - ISADORA RODRIGUEZ and asked if any additional questions and then verbalized understanding. Patient advised to call surgeon office or pre surgery nurse liaison [phone] if any additional questions.
[2022-12-01] VITALS (8 sets, daily range): BP systolic 93–150; BP diastolic 45–82; PULSE 44–78; RESP 14–16; TEMP 36.4–37.1; O2SAT 99–100
--- NOTE | 2022-12-01 12:07 | PM.IMHP ---
H&P: HPI History of Present Illness Date/Time: 12/01/22 12:07 Chief Complaint: Pelvic pain. Narrative: 52 y/o with intermittent pelvic pain and deep dyspareunia. Ultrasound exam shows a simple appearing left ovarian cyst which measures 1.6 cm, decreased in size from prior study. The right ovary shows a 1.9 cm complex appearing cystic structure, unchanged from a prior exam. Review of Systems Review of Systems: All systems reviewed & are unremarkable except as noted in HPI and below PMFSH Past Medical History Medical History Allergic rhinitis Asthma Depression with anxiety History of pancreatitis X5 Hypertension Hypothyroidism Migraines Surgical History Surgical History History of carpal tunnel release of both wrists History of section History of endometrial ablation (~11/2010) For menometrorrhagia. Hx laparoscopic cholecystectomy 01/27/20 laparoscopic Cholecystectomy with intraoperative cholangiogram Family History Family History Mother Glaucoma Acute myocardial infarction Chronic obstructive pulmonary disease Diabetes mellitus Father Cerebrovascular accident Lung cancer Hypertension Sibling Asthma Sibling Cerebrovascular accident Social History Social History Social History: The patient is and lives at home with her and their 2 children in [place]. 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 She smoked 1/2 a pack of cigarettes and quit in 1999. She very rarely will consume alcohol, and typically avoids it as it gives her migraines. No illicit substance use. Her , Hugo, is her surrogate decision maker and she wishes to be a full code. Smoking packs per day: 0.5 Smoking cigarettes per day: 10.0 Years smoked: 7 Smoking pack-years: 3.50 Smoking status: Former smoker Tobacco type: cigarettes Smoking end date: 02/14/97 Alcohol intake: never Substance use: never Substance use type: does not use Living arrangements: with family Gender identity (if verbalized by the patient): Female Spiritual care concerns: No Meds Home Medications and Allergies Home Medications Medication Instructions Recorded Confirmed Type cholecalciferol (vitamin D3) 50 50 mcg PO DAILY 08/24/19 11/25/22 History mcg (2,000 unit) capsule (Vitamin D3) erenumab-aooe 140 mg/mL 140 mg subcut MONTHLY 11/10/19 11/25/22 History subcutaneous auto-injector (Aimovig Autoinjector) riboflavin (vitamin B2) 400 mg 400 mg PO DAILY 11/10/19 11/25/22 History tablet atenolol 25 mg tablet 25 mg PO DAILY 10/29/22 11/25/22 History cetirizine 10 mg tablet 10 mg PO DAILY 10/29/22 11/25/22 History desoximetasone 0.05 % topical cream 1 applic topical DAILY 10/29/22 11/25/22 History losartan 100 mg tablet 100 mg PO DAILY #90 tabs 10/29/22 11/25/22 Rx magnesium 200 mg tablet 200 mg PO DAILY 10/29/22 11/25/22 History venlafaxine 150 mg 150 mg PO DAILY #90 caps 10/29/22 11/25/22 Rx capsule,extended release 24 hr alprazolam 0.5 mg tablet 0.5 mg PO BID PRN Anxiety 30 days 11/23/22 11/25/22 Rx #60 tabs levothyroxine 112 mcg tablet 112 mcg PO DAILY 11/25/22 11/25/22 History montelukast 10 mg tablet 10 mg PO DAILY 11/25/22 11/25/22 History (Singulair) Allergies Allergy/AdvReac Type Severity Reaction Status Date / Time Penicillins Allergy Intermediate Dyspnea / Verified 11/25/22 10:57 SOB Sulfa (Sulfonamide Allergy Unknown Dyspnea / Verified 11/25/22 10:57 Antibiotics) SOB tetracycline Allergy Unknown Dyspnea / Verified 11/25/22 10:57 SOB latex Allergy Unknown Verified 11/25/22 10:57 Exam Const: Orientation/consciousness: patient oriented x3 Other: Well-developed, well-nourished female in no a
[2022-12-01] MEDS: LACTATED RINGERS 1,000 ML 30 ML IV CONT ×2 (12:10→14:57)
[2022-12-01] MEDS: KETOROLAC 15 MG/ML VIAL (*BKC) IV PUSH (12:49)
[2022-12-01] MEDS: ACETAMINOPHEN 500 MG TABLET 1000 MG PO (12:49)
--- NOTE | 2022-12-01 12:57 | WPDANESEPPF ---
Anes - Initial Pre Proc Eval Procedure: Operation Date: 12/01/22 14:00 Proposed Procedures p Diagnostic Laparoscopy - Gage Rowan MD Date/Time: 12/01/22 12:57 Surgeon: Gage Rowan MD Pre Op Diagnosis: pelvic pain, dyspurenia Patient Data Age: 52 Gender: F Height: 1.6 m Weight: 76 kg Last Vital Signs Temp 37.1 C 12/01/22 12:20 Pulse 78 12/01/22 12:20 Resp 16 12/01/22 12:20 BP 150/82 H 12/01/22 12:20 Pulse Ox 100 12/01/22 12:20 O2 Del Method Room Air 12/01/22 12:20 Allergies Allergy/AdvReac Type Severity Reaction Status Date / Time Penicillins Allergy Intermediate Dyspnea / Verified 12/01/22 12:42 SOB Sulfa (Sulfonamide Allergy Unknown Dyspnea / Verified 12/01/22 12:42 Antibiotics) SOB tetracycline Allergy Unknown Dyspnea / Verified 12/01/22 12:42 SOB latex Allergy Unknown Verified 12/01/22 12:42 Home Medications Medication Instructions Recorded Confirmed Type cholecalciferol (vitamin D3) 50 50 mcg PO DAILY 08/24/19 11/25/22 History mcg (2,000 unit) capsule (Vitamin D3) erenumab-aooe 140 mg/mL 140 mg subcut MONTHLY 11/10/19 11/25/22 History subcutaneous auto-injector (Aimovig Autoinjector) riboflavin (vitamin B2) 400 mg 400 mg PO DAILY 11/10/19 11/25/22 History tablet atenolol 25 mg tablet 25 mg PO DAILY 10/29/22 12/01/22 History cetirizine 10 mg tablet 10 mg PO DAILY 10/29/22 11/25/22 History desoximetasone 0.05 % topical cream 1 applic topical DAILY 10/29/22 11/25/22 History losartan 100 mg tablet 100 mg PO DAILY #90 tabs 10/29/22 11/25/22 Rx magnesium 200 mg tablet 200 mg PO DAILY 10/29/22 11/25/22 History venlafaxine 150 mg 150 mg PO DAILY #90 caps 10/29/22 12/01/22 Rx capsule,extended release 24 hr alprazolam 0.5 mg tablet 0.5 mg PO BID PRN Anxiety 30 days 11/23/22 12/01/22 Rx #60 tabs levothyroxine 112 mcg tablet 112 mcg PO DAILY 11/25/22 12/01/22 History montelukast 10 mg tablet 10 mg PO DAILY 11/25/22 11/25/22 History (Ina) Patient hx anesthesia problems: none Family hx anesthesia problems: none Results Review: All pre-operative results and documents have been reviewed as part of the pre-operative evaluation. [facility] Past Medical History Medical History Allergic rhinitis Asthma Depression with anxiety History of pancreatitis X5 Hypertension Hypothyroidism Migraines Surgical History Surgical History History of carpal tunnel release of both wrists History of section History of endometrial ablation (~11/2010) For menometrorrhagia. Hx laparoscopic cholecystectomy 01/27/20 laparoscopic Cholecystectomy with intraoperative cholangiogram Family History Family History Mother Glaucoma Acute myocardial infarction Chronic obstructive pulmonary disease Diabetes mellitus Father Cerebrovascular accident Lung cancer Hypertension Sibling Asthma Sibling Cerebrovascular accident Social History Social History Social History: The patient is and lives at home with her and their 2 children in [place]. 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 She very rarely will consume alcohol, and typically avoids it as it gives her migraines. No illicit substance use. Her , Hugo, is her surrogate decision maker and she wishes to be a full code. Smoking packs per day: 0.5 Smoking cigarettes per day: 10.0 Years smoked: 7 Smoking pack-years: 3.50 Smoking status: Former smoker Tobacco type: cigarettes Smoking end date: 02/14/97 Alcohol intake: never Substance use: never Substance use type: does not use Living arrangements: with family Gender identity (if verbalized by the p
--- NOTE | 2022-12-01 13:18 | WPDHPUPDATE1 ---
History and Physical Update Update Date/Time: 12/01/22 13:18 History and Physical has been reviewed, including an updated exam of the patient. There are NO changes in the patient's condition. Risks, benefits, and alternatives have been discussed and questions answered. Patient agrees to proceed with procedure.
--- NOTE | 2022-12-01 14:55 | P.OP_ITS ---
Procedure Note - Detailed Date of Procedure 12/01/22 Pre-op Diagnosis Pelvic pain Dyspareunia Post-op Diagnosis Same Procedure Performed Diagnostic laparoscopy Incision and drainage of bilateral ovarian cysts Incisional biopsy of left ovarian cyst wall Surgeon Gage Rowan MD Anesthesia General Findings Gallbladder absent. Liver normal-appearing. Vermiform appendix not visualized. Tiny subserosal uterine fibroid. Unremarkable bilateral Fallopian tubes. Normal-appearing round ligaments bilaterally. Anterior cul de sac unremarkable. The left ovary was remarkable for a 2 cm chocolate cyst, suspicious for endometrioma. The right ovary was remarkable for a 1.5 cm cyst filled with cheesy material, suspicious for dermoid. Adhesions between the bowel and posterior serosal surface of the uterus partially obscured the posterior cul de sac. Description of Procedure The patient was taken to the operating room where general endotracheal anesthesia was administered. She was prepared and draped in the usual sterile fashion in the dorsal lithotomy position. The bladder was drained with a red rubber catheter. A sterile speculum was inserted into the vagina and the anterior lip of the cervix was grasped with a single-toothed tenaculum. The ac mclaren thumb region uterine manipulator was placed. The speculum was withdrawn. Gloves were changed and attention was turned to the abdomen. An infraumbilical skin incision was made with a scalpel. The abdomen was tented and a 5 millimeter bladeless trocar trocar was advanced under direct laparoscopic visualization. Pneumoperitoneum was administered using carbon dioxide gas. A survey of the pelvis and abdomen yielded the findings noted above. A second 5 mm port was placed in the midline just above the pubic symphysis, and a 10 mm port in the left lower quadrant, both using bladeless trocars under direct laparoscopic visualization. The right ovarian cyst was incised and the cheesy material scooped out. I attempted to shell out and excise most of the cyst wall while removing the cyst contents. Needlepoint electrocautery was used to incise and drain the left ovarian cyst, from which poured chocolate fluid. The endoshears were used to excise a small portion of the left ovarian cyst wall to be sent to pathology. The pelvis was irrigated copiously with warmed normal saline. Hemostasis was excellent. The trocars were withdrawn and the gas was allowed to escape. The skin incision was reapproximated using 4-0 Vicryl in interrupted subcuticular fashion. Dermaflex was applied externally. The vaginal instrumentation was withdrawn and hemostasis was excellent here as well. Sponge, lap, needle and instrument counts were correct. The patient was awakened and taken to recovery in stable condition. I was present and scrubbed through the entire procedure. Estimated Blood Loss 10 Drains No Packing No Pathology Yes (Contents of right ovarian cyst, biopsy of cyst wall of left ovarian cyst.) Complications None Condition Stable Disposition PACU
[2022-12-01] MEDS: fentaNYL CITRATE INJ (*CRX) 100 MCG/2 ML VIAL 25 MCG IV PUSH ×4 (15:15→15:39)
== END 2022-12-01 16:50 | disposition home or self-care (01) ==
PROVIDERS: PCP Family Medicine; Visit Provider Obstetrics & Gynecology
PROC: (CPT 49320; principal; 2022-12-01 14:00)
DX: N83.12 Corpus luteum cyst of left ovary (principal); N83.201 Unspecified ovarian cyst, right side; R10.2 Pelvic and perineal pain; N73.6 Female pelvic peritoneal adhesions (postinfective); N94.10 Unspecified dyspareunia; I10 Essential (primary) hypertension; E03.9 Hypothyroidism, unspecified; F41.8 Other specified anxiety disorders; Z87.891 Personal history of nicotine dependence
CPT/HCPCS: 58662; 88305; A9270; J1100; J1885; J2250; J2405; J2704; J2710; J3010; J7120

== ENCOUNTER 2023-10-14 15:12 | Outpatient (CLI) | payer OTHER, SELFPAY ==
--- NOTE | ~2023-10-14 | MM_ITS ---
EXAMINATION: MM screening susan BI w henry HISTORY: Screening TECHNIQUE: Craniocaudal and mediolateral oblique 3-D tomosynthesis images were obtained and synthetic 2-D images were generated. CAD analysis was submitted and interpreted. COMPARISON: Comparison to multiple prior studies sequentially, with oldest reviewed study dated 03/2016. BREAST PARENCHYMAL COMPOSITION: Not dense: There are scattered areas of fibroglandular density. FINDINGS: There is a developing asymmetry in the upper outer quadrant of the right breast anteriorly. The left breast is stable without evidence for malignancy. IMPRESSION: 1. Developing right breast asymmetry. 2. Additional mammographic views and possible breast ultrasound are recommended. BI-RADS Category 0: Incomplete: Needs additional imaging evaluation. Reviewed, dictated and finalized at location B. IMPRESSION: 1. Developing right breast asymmetry. 2. Additional mammographic views and possible breast ultrasound are recommended . BI-RADS Category 0: Incomplete: Needs additional imaging evaluation.
== END 2023-10-14 15:13 | disposition home or self-care (01) ==
LOC: ANHIMG 15:13
PROVIDERS: PCP Family Medicine; Visit Provider Obstetrics & Gynecology
DX: Z12.31 Encounter for screening mammogram for malignant neoplasm of breast (principal); N64.89 Other specified disorders of breast
CPT/HCPCS: 77063; 77067

== ENCOUNTER 2023-11-04 12:06 | Outpatient (CLI) | payer OTHER, SELFPAY ==
--- NOTE | ~2023-11-04 | MM_ITS ---
EXAMINATION: MM diagnostic susan RT w henry HISTORY: Right breast ACR TECHNIQUE: 3-D tomosynthesis images of the right breast were performed and synthetic 2-D images were generated. CAD analysis was submitted and interpreted. COMPARISON: 10/14/2023, 04/30/2021, 03/19/2020 BREAST PARENCHYMAL COMPOSITION:Not Dense. There are scattered areas of fibroglandular density. FINDINGS: The asymmetry effaces with spot compression. No persistent mass lesion or distortion seen. No suspicious microcalcifications. IMPRESSION: No mammographic evidence for malignancy. BI-RADS Category 1: Negative Reviewed, dictated and finalized at location .
== END 2023-11-04 12:07 | disposition home or self-care (01) ==
LOC: ANHIMG 12:08
PROVIDERS: PCP Family Medicine; Visit Provider Obstetrics & Gynecology
DX: R92.8 Other abnormal and inconclusive findings on diagnostic imaging of breast (principal)
CPT/HCPCS: 77061; 77065; G0279

== ENCOUNTER 2024-12-20 14:38 | Outpatient (CLI) | payer OTHER, SELFPAY ==
--- NOTE | ~2024-12-20 | MM_ITS ---
EXAMINATION: MM screening susan BI w henry HISTORY: Screening TECHNIQUE: Craniocaudal and mediolateral oblique 3-D tomosynthesis images were obtained and synthetic 2-D images were generated. CAD analysis was submitted and interpreted. COMPARISON: Comparison to multiple prior studies sequentially, with oldest reviewed study dated 02/03/2018. BREAST PARENCHYMAL COMPOSITION: Not dense: There are scattered areas of fibroglandular density. FINDINGS: There is no evidence of suspicious mass, calcification, or architectural distortion to suggest malignancy in either breast. There has been no suspicious interval change. IMPRESSION: 1. No mammographic evidence of malignancy. 2. Recommend routine screening mammography in one year. BI-RADS Category 1: Negative Reviewed, dictated and finalized at location O. T STAFF MEMBER
--- OUTSIDE RECORDS SUMMARY | 2024-12-20 20:36 | XMS_ITS | Clinical Summary ---
Author Organization [facility] Address [address] [place] [address] Phone Care Team Providers Care Radiotelegraph Operator Servicer Name Role Phone Zhang Clemons MD Primary Care Provider Allergies Active Allergy Reactions Criticality Noted Date Comments Bupropion Nausea and Vomiting,Dizziness Low 04/28/2020 Meperidine Nausea and Vomiting,Dizziness Low 04/28/2020 Penicillins Hives High 05/23/2018 Sulfa (Sulfonamide Antibiotics) Hives High 05/23/2018 Tetracycline Hives High 05/23/2018 Medications cetirizine (ZyrTEC) 10 mg tablet Take 10 mg by mouth daily. Active Cholecalciferol , Vitamin D3, 2,000 unit Capsule Take by mouth. Activ e levothyroxine 125 mcg tablet Take 125 mcg by mouth daily in the morning. Active venlafaxine 150 mg Extended Release 24 hour tablet Take 150 mg by mouth daily with breakfast. Active montelukast (SINGULAIR) 10 mg tablet Take 10 mg by mouth daily at bedtime. Active Magnesium Hydroxide 400 mg (170 mg magnesium) Tablet, Chewable Take by mouth. Activ e losartan (COZAAR) 50 mg tablet Take 50 mg by mouth daily. 04/21/19 22 Active acetaminophen-c affeine-butalbi tatiana (FIORICET) 300-40-50 mg capsule TAKE ONE CAPSULE BY MOUTH EVERY 4 HOURS NEEDED FOR MIGRAINE HEADACHE 04/09/19 21 Active ALPRAZolam (XANAX) 0.5 mg tablet TAKE 1 TABLET BY MOUTH TWICE DAILY NEEDED 03/18/19 22 Active atenoloL (TENORMIN) 25 mg tablet Take 25 mg by mouth daily. Active rimegepant (Nurtec ODT) 75 mg Tablet, Rapid DissolveIndicat ions:Migraine without aura and without status migrainosus, not intractable Take one tablet at onset of migraine. Limit use to 1 tab per 24 hours. Limit use to 2 days per week on average. 30 Tablet 6 08/22/19 24 Active Imvexxy Maintenance Pack 4 mcg Insert INSERT 1 TABLET IN THE VAGINA TWICE A WEEK 02/28/19 25 Active pyridoxine HCl, vitamin B6, (PYRIDOXINE, VITAMIN B6, ORAL) Take by mouth. Activ e erenumab-aooe (Aimovig Autoinjector) 140 mg/mL Auto-InjectorIn dications:Migra ine without aura and without status migrainosus, not intractable INJECT ONE ML (140 MG) SUBCUTANEOUSLY EVERY 30 DAYS. 3 mL 6 08/15/19 25 Active Active Problems No known active problems Encounters Date Type Department Care Team Description 12/12/2024 External Device Data [facility] Provider, Abstract 12/11/2024 External Device Data [facility] Provider, Abstract from Last 3 Months Family History Medical History Relation Name Comments Cancer Father Hypertension Father Diabetes Mother Heart Disease Mother Relation Name Status Comments Father Mother Social History Tobacco Use Types Packs/Day Years Used Date Smoking Tobacco: Never Smokeless Tobacco: Never Tobacco Cessation:Counseling Given: Not Answered Alcohol Use Standard Drinks/Week Comments No 0 (1 standard drink = 0.6 oz pur e alcohol) Comments No Sex and Gender Information Value Date Recorded Sex Assigned at Not on file Legal Sex Female 1:33 PM CDT Gender Identity Not on file Sexual Orientation Not on file Last Filed Vital Signs Vital Sign Reading Time Taken Comments Blood Pressure 116/74 04/24/2024 3:32 PM CDT Pulse 68 04/24/2024 3:32 PM CDT Temperature - - Respiratory Rate - - Oxygen Saturation 98% 04/24/2024 3:32 PM CDT Inhaled Oxygen Concentration - - Weight 79.8 kg (176 lb) 04/24/2024 3:32 PM CDT Height 162.6 cm (5' 4) 04/24/2024 3:32 PM CDT Body Mass Index 30.21 04/24/2024 3:32 PM CDT Plan of Treatment Upcoming Encounters Date Type Department Care Team (Late st Contact Info) Description 10/25/2025 9:30 AM CDT Office Visit [facility] [id number] [place] [address] Myah Bañuelos MD [address] [place] [address] Health Maintenance Due Date Last Done Comments Pre-Diabetes and Diabetes Screening 1970 DTAP/TDAP/TD VACCINES (1 - Tdap) 1989 HEPATITIS B VACCINES (1 of 3 - 19+ 3-dose series) 10/15 HPV/Cotest (21-29) 10/25/1991 CERVICAL CANCER SCREENING 2000 HPV/Cotest (30-65) 2000 PAP SMEAR 2000 BREAST CANCER SCREENING 2010 COLORECTAL SCREENING 10/25/2015 Colorectal Cancer Screening 10/25/2015 FIT-DNA Q 3 years 10/25/2015 FIT/FOBT Q 1 year 10/25/2015 Flex Sig/CT Colonography Q 5 years 10/25/2015 ZOSTER VACCINE (1 of 2) 2020 INFLUENZA VACCINE (#1) 2024 11/15/2019 Insurance [facility] Care Teams Radiotelegraph Operator Servicer Relationship Specialty Start Date End Date Lopatin, Zhang Konrad, MD [address] [place] [address] PCP - General Family Practice 05/23/18
--- OUTSIDE RECORDS SUMMARY | 2024-12-20 20:36 | XMS_ITS | Clinical Summary ---
Author Organization [facility] Address [address] [place] [address] Care Team Providers Care Hat Lining Blocker Name Role Phone Zhang Clemons MD Primary Care Provider [phone] Allergies Active Allergy Reactions Criticality Noted Date Comments Amoxicillin Hives High Reaction: Hives, Bupropion Dizziness Reaction: Dizziness, Meperidine Other (See comments) Reaction: Other, Penicillins Hives High Reaction: Hives, Sulfa (Sulfonamide Antibiotics) Hives High 04/25/2016 Reaction: Hives, Tetracycline Hives High Reaction: Hives, Medications venlafaxine 150 mg tablet extended release 24hr 24 hr tablet Take 150 mg by mouth Active rizatriptan (MAXALT) 10 mg tablet may repeat in 2 hours; max dose 20mg in 24 hours 0 Active montelukast (SINGULAIR) 10 mg tablet Take 10 mg by mouth daily Active magnesium hydroxide 400 mg (170 mg magnesium) tablet,chewabl e Take by mouth Active levothyroxine (SYNTHROID) 112 mcg tablet Take 112 mcg by mouth Active erenumab-aooe 140 mg/mL auto-injector INJECT 1 ML (140 MG) SUBCUTANEOUSLY EVERY 30 DAYS. 0 Active cholecalcifero l (VITAMIN D-3) 2000 unit capsule Take by mouth Active cetirizine (ZyrTEC) 10 mg tablet Take 10 mg by mouth daily Active ALPRAZolam (XANAX) 0.5 mg tablet Take 0.5 mg by mouth nightly as needed for anxiety Active butalbital-ghulam taminophen-caf feine (FIORICET) 50-300-40 mg per capsule TAKE ONE CAPSULE BY MOUTH EVERY 4 HOURS NEEDED FOR MIGRAINE HEADACHE 1 Active Active Problems Problem Noted Date Diagnosed Date Acute pancreatitis 01/07/2020 Overview (01/07/2020): Added automatically from request for surgery [id number] Recurrent acute pancreatitis 01/02/2020 Overview (01/02/2020): Added automatically from request for surgery [id number] Pain in wrist 04/05/2016 Surgical History Surgery Date Site/Laterality Comments MS DELIVERY ONLY Section - (Added by TW Conv) COLONOSCOPY CARPAL TUNNEL RELEASE Medical History Medical History Date Comments Personal history of other di seases of the respiratory system History of asthma - (Added b y TW Conv) Personal history of other me ntal and behavioral disorders History of depression - (Add ed by TW Conv) Personal history of other di seases of the nervous system and sense organs History of migraine - (Added by TW Conv) Personal history of other en docrine, nutritional and metabolic disease History of thyroid d isease - (Added by TW Conv) Pancreatitis Hypothyroidism Family History Medical History Relation Name Comments Alcohol abuse Father Family history of alcoholism - (Added by TW Conv) Arthritis Father Family history of arthritis - (Added by TW Conv) Cancer Father Family history of malignant neoplasm - (Added by TW Conv) Gout Father Family history of gout - (Added by TW Conv) Hypertension Father Family history of hypertension - (Added by TW Conv) Arthritis Mother Family history of arthritis - (Added by TW Conv) Bleeding Disorder Mother Bleeding d isorder - (Added by TW Conv) Blood Clot Mother Family history of blood clots - (Added by TW Conv) Diabetes Mother Family history of diabetes mellitus - (Added by TW Conv) Heart disease Mother Family history of cardiovascular disease - (Added by TW Conv) Lung disease Mother Family history of lung disease - (Added by TW Conv) Mental illness Mother FH: mental il lness - (Added by TW Conv) Stroke Mother Family history of cerebrovascular accident (CVA) - (Added by TW Conv) Relation Name Status Comments Father Mother Social History Tobacco Use Types Packs/Day Years Used Date Smoking Tobacco: Former Smokeless Tobacco: Never Alcohol Use Standard Drinks/Week Comments Not Currently 0 (1 standard drink = 0.6 oz pur e alcohol) Personal Safety Answer Date Recorded Getting School Help Needed Not on file 04/28 Comments No Sex and Gender Information Value Date Recorded Sex Assigned at Not on file Legal Sex Female 2:18 AM FREIGHT FLAGMAN Gender Identity Not on file Sexual Orientation Not on file Last Filed Vital Signs Vital Sign Reading Time Taken Comments Blood Pressure 121/83 04/29/2020 1:29 PM CDT Pulse 80 04/29/2020 1:29 PM CDT Temperature 36.8 C (98.2 F) 04/29/2020 1:29 PM CDT Respiratory Rate 18 01/16/2020 12:20 PM FREIGHT FLAGMAN Oxygen Saturation 98% 01/16/2020 12:20 PM FREIGHT FLAGMAN Inhaled Oxygen Concentration - - Weight 68.2 kg (150 lb 6.4 oz) 04/29/2020 1:29 P M CDT Height 160 cm (5' 3) 04/29/2020 1:29 PM CDT Body Mass Index 26.64 04/29/2020 1:29 PM CDT Plan of Treatment Not on file Insurance AETNA SIG [id number] Advance Directives For more information, please contact: [phone] * Full Code (Latest Code Status on File) Date Activated Date Inactivated Comments 01/16/2020 9:26 AM 01/16/2020 5:15 PM Care Teams Hat Lining Blocker Relationship Specialty Start Date End Date Zhang Clemons MD [address] [place] [address] PCP - General Family Medicine 12/28/19
--- OUTSIDE RECORDS SUMMARY | 2024-12-20 20:36 | XMS_ITS | Encounter Summary ---
Author Organization [facility] Address [address] [place] [address] Phone Care Team Providers Care Software Lead Name Role Phone Zhang Clemons MD Primary Care Provider [phone] Encounter Details Date Type Department Care Team (Late st Contact Info) Description 11/12/2019 Orders Only [facility] Scanning, Provider Social History Tobacco Use Types Packs/Day Years Used Date Smoking Tobacco: Former Comments Unknown Sex and Gender Information Value Date Recorded Sex Assigned at Not on file 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 Gender Identity Not on file Sexual Orientation Not on file documented as of this encounter Plan of Treatment Not on file documented as of this encounter Procedures Procedure Name Priority Date/Time Associated Diagnosis Comments SCAN - LABS 11/12/2019 documented in this encounter Results * SCAN - LABS (11/12/2019) Provider Scanning Final Result documented in this encounter Visit Diagnoses Not on filedocumented in this encounter Care Teams Software Lead Relationship Specialty Start Date End Date Zhang Clemons MD [address] [place] [id number] PCP - General Family Medicine 12/28/19 documented as of this encounter
--- OUTSIDE RECORDS SUMMARY | 2024-12-20 20:36 | XMS_ITS | Clinical Summary ---
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 Gender Identity Not on file Sexual Orientation Not on file Plan of Treatment Health Maintenance Due Date Last Done Comments Hepatitis C Virus (HCV) Screening 1970 TdaP Immunization 1970 Hepatitis B Immunization (1 of 3 - 19+ 3-dose series) 1989 Pap Smear 10/25/1991 Cervical Cancer Screening (CCS) 2000 HPV/Cotest 2000 Cologuard 10/25/2015 Colonoscopy 10/25/2015 Colorectal Cancer Screening 10/25/2015 Immunochemical Fecal Occult Blood 10/25/2015 Pneumococcal Immunization (5 0+ years) (1 of 1 - PCV) 2020 Zoster Immunization (1 of 2) 2020 Influenza Immunization (#1) 10/15/202403/2019, 11/21/2015, 12/09/2014 SARS-COV-2 Immunization ( season) 2024 Respiratory Syncytial Virus (RSV) Immunization (Adult) (1 - 1-dose 75+ series) 2045 Human Papillomavirus (HPV) Immunization Aged Out No longer eligible b ased on patient's age to complete this topic Meningococcal Immunization (ACWY) Aged Out No longer eligible b ased on patient's age to complete this topic Rotavirus Immunization Aged Out No lo nger eligible based on patient's age to complete this topic Insurance [employer] on file
--- OUTSIDE RECORDS SUMMARY | 2024-12-20 20:36 | XMS_ITS | Clinical Summary ---
Author Organization [facility] Address [address] [place] [id number] Care Team Providers Care Wood Drilling Machine Operator Name Role Phone Unavailable Primary Care Provider Unavailabl e Social History Tobacco Use Types Packs/Day Years Used Date Smoking Tobacco: Never Assessed Comments Unknown Sex and Gender Information Value Date Recorded Sex Assigned at Not on file Legal Sex Female 7:00 PM CDT Gender Identity Not on file Sexual Orientation Not on file Plan of Treatment Health Maintenance Due Date Last Done Comments Cervical Cancer Screening Pa p Smear (Age 30 to 64) Every 3 Years 1970 Colorectal Cancer Screening Colonoscopy (10 Years) 1970 Annual Physical 1973 Hepatitis C 1988 DTaP, Tdap and Td Vaccines ( 1 - Tdap) 1989 Hepatitis B Vaccines (1 of 3 - 19+ 3-dose series) 1989 Cervical Cancer Screening Pa p with HPV Testing (Age 30 to 64) Every 5 Years 2000 Cervical Cancer Screening with HPV 2000 Mammogram Screening 2010 Pneumococcal Vaccine: 50+ Ye ars (1 of 1 - PCV) 2020 Zoster Vaccines (1 of 2) 2020 COVID-19 Vaccine ( - 2024-2 6 season) 2024 Influenza Adult (#1) 2024 Hepatitis A Vaccines Aged Out No long er eligible based on patient's age to complete this topic Meningococcal B Vaccine Aged Out No l onger eligible based on patient's age to complete this topic Meningococcal Vaccine Aged Out No darcie jalil eligible based on patient's age to complete this topic RSV Immunizations Under 20 Months Aged Out No longer eligible based on patient's age to complete this topic
--- OUTSIDE RECORDS SUMMARY | 2024-12-20 20:36 | XMS_ITS | Clinical Summary ---
Author Organization [facility] Address [address] [address] Care Team Providers Care Guest Relations Agent Name Role Phone Danielle Stewart MD Primary Care Provider Source Comments [facility],non-owned Affiliates and Associated Physician Practices is amultiple site organization consisting of ambulatory clinics and hospital sitesin [place], [place], [place] and [place]. This disclosure is being madepursuant to the Care Everywhere program and may not contain all information available regarding this patient. Last updated 17.[facility] Allergies Active Allergy Reactions Criticality Noted Date Comments Meperidine 04/25/2016 Penicillins 04/25/2016 Sulfa Drugs 04/25/2016 Tetracyclines 04/25/2016 Medications * Be aware that medications may not be up to date on this document. Alwaysverify current medications with the patient. 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 Gender Identity Not on file Sexual Orientation Not on file Last Filed Vital Signs Vital Sign Reading Time Taken Comments Blood Pressure 118/86 05/29/2016 3:19 PM CDT Pulse 91 05/29/2016 3:19 PM CDT Temperature 36.9 C (98.5 F) 05/29/2016 3:19 PM CDT Respiratory Rate 16 05/29/2016 3:19 PM CDT Oxygen Saturation 96% 05/29/2016 3:19 PM CDT Inhaled Oxygen Concentration - - Weight 74.8 kg (165 lb) 05/29/2016 3:19 PM CDT Height 162.6 cm (5' 4) 05/29/2016 3:19 PM CDT Body Mass Index 28.32 05/29/2016 3:19 PM CDT Plan of Treatment Health Maintenance Due Date Last Done Comments COLOGUARD (AGES 45-75) - COL ON CA SCREENING 1970 COLON MONITORING 1970 COLONOSCOPY - COLON CA SCREENING 1970 CT COLONOGRAPHY - COLON CA SCREENING 1970 Colorectal Cancer Screening 1970 FIT - COLON CA SCREENING 1970 FLEX SIG - COLON CA SCREENING 1970 LIPID TESTING 1970 MAMMOGRAM 1970 HIV SCREENING 1985 HEPATITIS C SCREENING 10/19/1988 DTAP/TDAP/TD VACCINES (1 - Tdap) 1989 HEPATITIS B VACCINE (1 of 3 - 19+ 3-dose series) 1989 PAP SMEAR 10/25/1991 PNEUMOCOCCAL VACCINE 50+ (1 of 1 - PCV) 2020 ZOSTER VACCINE (1 of 2) 2020 DEPRESSION SCREENING 02/15/2024 COVID-19 VACCINE (1 - 2023-2 5 season) 2024 INFLUENZA VACCINE (#1) 2024 HIB VACCINE Aged Out No longer eligi ble based on patient's age to complete this topic HPV VACCINE Aged Out No longer eligi ble based on patient's age to complete this topic MENINGOCOCCAL (Group B) VACC INE SHARED DECISION-MAKING Aged Out No longer eligibl e based on patient's age to complete this topic MENINGOCOCCAL GROUPS A/C/Y/W VACCINE Aged Out No longer eligible b ased on patient's age to complete this topic Insurance AETNA AETNA [facility] Care Teams Guest Relations Agent Relationship Specialty Start Date End Date Danielle Stewart MD [address] [place] [id number] [facility] - General 01/31/20
== END 2024-12-20 14:39 | disposition home or self-care (01) ==
LOC: ANHFOHIMG 14:40
PROVIDERS: PCP Family Medicine; Visit Provider Obstetrics & Gynecology
DX: Z12.31 Encounter for screening mammogram for malignant neoplasm of breast (principal)
CPT/HCPCS: 77063; 77067

== ENCOUNTER 2025-01-25 14:01 | Emergency (ER) | payer OTHER, SELFPAY ==
--- NOTE | ~2025-01-25 | XR_ITS ---
EXAMINATION: XR chest 2V, 01/25/2025 14:20 WAFFLE MACHINE OPERATOR HISTORY: SOB COMPARISON: No comparisons available. Technique: 2 views obtained. Findings: The lungs are clear, no effusion. No pneumothorax. Heart is normal size. Mediastinal and hilar contours are within normal limits. Bony thorax no acute abnormality. Impression: No acute cardiopulmonary abnormality. Reviewed, dictated and finalized at location P. LE MACHINE OPERATOR Impression: No acute cardiopulmonary abnormality.
--- NOTE | ~2025-01-25 | CT_ITS ---
EXAMINATION: CT brain wo con DATE: 01/25/2025 17:58 INDICATION: Headache. Lightheadedness. TECHNIQUE: Computed tomography (CT) of the head was performed without intravenous contrast. The mA was adjusted according to patient size. Iterative reconstruction technique was employed. The dose-length product was 605.33 mGy-cm. COMPARISON: None FINDINGS: No acute intracranial bleed. No evidence of extra-axial collections. No evidence of effacement of sulci. No ventriculomegaly or midline shift. No acute bony lesions. Sinusitis of ethmoid and right maxillary sinus noted. IMPRESSION: 1. No acute intracranial lesions in the limited noncontrast CT head. 2. Moderate sinusitis involving right maxillary sinus and ethmoid sinuses. Reviewed, dictated and finalized at location T. L MGR
--- NOTE | 2025-01-25 14:04 | ECG_ITS ---
Test Date: 2025-01-25 14:07:17 Measurements Intervals [place] Rate: 64 P: 20 ID: 170 QRS: 55 QRSD: 90 T: 75 QT: 382 QTc: 396 Interpretive Statements SINUS RHYTHM POSSIBLE LEFT ATRIAL ENLARGEMENT INCOMPLETE RIGHT BUNDLE BRANCH BLOCK LOW QRS VOLTAGE IN PRECORDIAL LEADS T WAVE ABNORMALITY IN ANTERIOR LEADS- CONSIDER ISCHEMIA BASELINE ARTIFACT- AVR, AVL, V5-V6 BORDERLINE ECG No previous ECG available for comparison Electronically Signed On 01-25-2025 14:12:16 GEOLOGIST by Gerry Garcia D.O.
[2025-01-25 14:07] VITALS: BP 136/71; PULSE 65; RESP 16; TEMP 36.4; O2SAT 100
[2025-01-25 14:25] LABS: Hematocrit 38.2 % (37.0-47.0); Hemoglobin 12.5 g/dL (12.0-15.0); Immature Granulocyte Percent A 0.5 % (0-0.5); Lymphocytes Absolute Auto 3.61 K/mm3 (0.9-3.2); Mean Corpuscular HGB Conc 32.7 g/dl (32-36); Mean Corpuscular Hemoglobin 29.8 pg (26-34); Mean Corpuscular Volume 91.0 fl (80-100); Nucleated Red Blood Cells Absolute Auto 0.000 K/mm3 (0.0-0.012); Nucleated Red Blood Cells Perc 0.0 % (0.0-0.2); Platelet Count Result 414 k/mm3 (150-375); Red Blood Count 4.20 M/mm3 (4.2-5.4); White Blood Count 8.2 K/mm3 (4.5-10.0)
[2025-01-25 14:38] LABS: Alanine Aminotransferase 18 U/L (6-35); Albumin Level 4.5 g/dL (3.5-5.1); Alkaline Phosphatase 83 U/L (38-126); Anion Gap 6 mmol/L (4-12); Aspartate Amino Transferase 27 U/L (14-36); Bilirubin,Total 0.3 mg/dL (0.2-1.3); Blood Urea Nitrogen 11 mg/dL (7-17); Calcium 9.3 mg/dL (8.4-10.2); Carbon Dioxide 27 mmol/L (22-30); Chloride 102 mmol/L (98-107); Estimated CRCL calculation 78 ml/min; Estimated Glomerular Filt Rate > 60; Glucose 119 mg/dL (65-110); Lipase 151 U/L (23-300); Potassium 3.8 mmol/L (3.4-5.0); Sodium 135 mmol/L (137-145); Total Protein 7.8 g/dL (6.3-8.2)
[2025-01-25 14:40] LABS: INR 1.0; Partial Thromboplastin Time 29.4 Seconds (22.3-36.8); Prothrombin Time 12.9 Seconds (11.1-14.7)
[2025-01-25 14:49] LABS: Troponin I < 0.012 ng/mL (0.000-0.034)
[2025-01-25 15:51] VITALS: BP 136/70; PULSE 63; RESP 17; TEMP 36.7; O2SAT 97
--- NOTE | 2025-01-25 16:55 | ECG_ITS ---
Test Date: 2025-01-25 17:10:42 Measurements Intervals [place] Rate: 65 P: 27 FL: 183 QRS: 8 QRSD: 83 T: 2 QT: 415 QTc: 431 Interpretive Statements SINUS RHYTHM POSSIBLE LEFT ATRIAL ENLARGEMENT CONSIDER RIGHT VENTRICLAR CONDUCTION DELAY CONSIDER INFERIOR INFARCT, AGE INDETERMINATE T WAVE ABNORMALITY IN ANTERIOR LEADS- CONSIDER ISCHEMIA ABNORMAL ECG Compared to ECG 01/25/2025 14:07:17 NO SIGNIFICANT CHANGE Electronically Signed On 01-26-2025 08:06:47 SOCIOLOGY INSTRUCTOR by Gerry Garcia D.O.
--- NOTE | 2025-01-25 17:19 | ED.ARRPALP ---
HPI - Arrhythmia/Palpitations General Chief Complaint: Arrhythmia/Palpitations <HOMA Dawson Last Filed: 01/25/25 17:47> Stated Complaint: elevated BP, 158/90, SOB, palpitations <HOMA Dawson Last Filed: 01/25/25 17:47> Time Seen by Provider: 01/25/25 17:19 <HOMA Dawson Last Filed: 01/25/25 17:47> Focused HPI: Patient is a 54 y/o female who presents to the ED with c/o elevated BP. Patient reports history of hypertension and is on 100mg Losartan daily. Reports compliance with this. States her BP has been elevated over the past several days. States it has been elevated to around 148/80s. Typically 110s/60s. Reports she has not felt well this week. C/o SAUNDERS, general malaise, hazy feeling, intermittent blurry vision, fatigued, SOB, racing heart palpitations. Denies recent fevers/cough. Denies CP. Denies focal numbness/weakness. Denies increased stress. GENERAL: Well-appearing, well-nourished, and in no acute distress. HEAD: Normocephalic, atraumatic. CHEST: Clear to auscultation. ?No respiratory distress. HEART: Regular rate and rhythm.? NEURO: ?Alert and oriented x3. No focal deficits. Patient screened in triage and initial orders placed.? ?Additional care and disposition to be based upon?diagnostic testing and treatment. <Portia Serrano PA-C - Last Filed: 01/25/25 17:47> Source: patient <HOMA Dawson Last Filed: 01/25/25 17:47> Mode of arrival: ambulatory <HOMA Dawson Last Filed: 01/25/25 17:47> Limitations: no limitations <HOMA Dawson Last Filed: 01/25/25 17:47> History of Present Illness HPI narrative: Patient 54-year-old female who presents emergency department chief complaint of elevated blood pressure. Patient reports he has prior history of hypertension is on losartan patient states for last several days she has noticed her blood pressures been elevated and reports that she has had some generalized malaise headache and noticed that her heart was having some palpitations intent patient states she currently feels okay she is not having any symptoms at this time <Hany Arteaga MD - Last Filed: 01/25/25 19:25> Related Data Home Medications: Home Medications ?Medication ?Instructions ?Recorded ?Confirmed ?Last Taken ?Type cholecalciferol (vitamin D3) 50 50 mcg PO DAILY 08/24/19 11/26/24 01/27/20 09:00 History mcg (2,000 unit) capsule (Vitamin D3) erenumab-aooe 140 mg/mL 140 mg subcut MONTHLY 11/10/19 11/26/24 12/25/19 12:00 History subcutaneous auto-injector (Aimovig Autoinjector) cetirizine 10 mg tablet 10 mg PO DAILY 10/29/22 11/26/24 Unknown History magnesium 200 mg tablet 400 mg PO DAILY 10/29/22 11/26/24 Unknown History estradiol-norethindrone acet 1 1 tablet PO DAILY 04/17/24 11/26/24 Unknown History mg-0.5 mg tablet (Activella) <Portia Serrano PA-C - Last Filed: 01/25/25 17:47> Allergies/Adverse Reactions: Allergies Allergy/AdvReac Type Severity Reaction Status Date / Time Penicillins Allergy Intermediate Dyspnea / Verified 01/25/25 14:03 SOB Sulfa (Sulfonamide Allergy Unknown Dyspnea / Verified 01/25/25 14:03 Antibiotics) SOB tetracycline Allergy Unknown Dyspnea / Verified 01/25/25 14:03 SOB latex Allergy Unknown Verified 01/25/25 14:03 bupropion AdvReac Hives Verified 01/25/25 14:03 <Portia Serrano PA-C - Last Filed: 01/25/25 17:47> Review of Systems Review of Systems: A 10 system review of systems was completed on the patient and is negative except for what is stated in the HPI. Nursing and ancillary documentation was reviewed. <Hany Arteaga MD - Last Filed: 01/25/25 19:25> PMFSH Past Medical History Medical History: Medical History Hyperlipidemia, mixed Headache History of pancreatitis X5 Asthma Allergic rhinitis Depression with anxiety Migraines Hypothyroidism Hypertension <Portia Serrano PA-C - Last Filed: 01/25/25 17:47> Surgical History Surgical History: Surgical History Hx laparoscopic cholecystectomy 01/27/20 laparoscopic Cholecystectomy with intraoperative cholangiogram History of carpal tunnel release of both wrists History of endometrial ablation (~11/2010) For menometrorrhagia. History of section <Portia Serrano PA-C - Last Filed: 01/25/25 17:47> Family History Family History: Family History Mother Glaucoma Acute myocardial infarction Chronic obstructive pulmonary disease Diabetes mellitus Father Cerebrovascular accident Lung cancer Hypertension Sibling Asthma Sibling Cerebrovascular accident <Portia Serrano PA-C - Last Filed: 01/25/25 17:47> Social History Social History: Social History Social History: The patient is and lives at home with her and their 2 children in [place]. 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 She smoked 1/2 a pack of cigarettes and quit in 1999. She very rarely will consume alcohol, and typically avoids it as it gives her migraines. No illicit substance use. Her , Hugo, is her surrogate decision maker and she wishes to be a full code. Smoking packs per day: 0.5 Smoking cigarettes per day: 10.0 Years smoked: 7 Smoking pack-years: 3.50 Smoking status: Former smoker Tobacco type: cigarettes Smoking end date: 02/14/97 Alcohol intake: never Substance use: never Substance use type: does not use Lack of Transportation: No Lack of Food: Never True Current Housing: I Have Housing Concerned About Future Housing: No Difficulty Paying Gas/Electric Bills: No Difficulty Paying for Meds: No Currently Unemployed: No Education: Bachelor's Degree Difficulty w/ Childcare or Family Care: No Living arrangements: with family Occupation/Education: occupation Gender identity (if verbalized by the patient): Female Sexual Orientation (if Verbalized by the Patient): Straight or Heterosexual Spiritual care concerns: No <Portia Serrano PA-C - Last Filed: 01/25/25 17:47> Exam Narrative: GENERAL: Well-appearing, well-nourished, and in no acute distress. HEAD: Normocephalic, atraumatic. EYES: PERRLA and EOMI. ENT: Nares clear, no rhinorrhea or epistaxis. Mucous membranes moist. NECK: Supple. CHEST: Clear to auscultation. No respiratory distress. HEART: Regular rate and rhythm. No murmur heard. Normal peripheral pulses. ABDOMEN: Soft, nontender, nondistended, normal active bowel sounds. EXTREMITIES: Normal range of motion. No edema. SKIN: Warm, dry, no rash. NEURO: No focal deficits. Alert and oriented x3. PSYCH: Normal mood and affect. <Hany Arteaga MD - Last Filed: 01/25/25 19:25> Course Vital Signs Vital signs: Vital Signs Temperature 36.4 C L 01/25/25 14:07 Pulse Rate 65 01/25/25 14:07 Respiratory Rate 16 01/25/25 14:07 Blood Pressure 136/71 01/25/25 14:07 Pulse Oximetry 100 01/25/25 14:07 Oxygen Delivery Room Air 01/25/25 14:07 Temperature 36.7 C 01/25/25 15:51 Pulse Rate 74 01/25/25 18:13 Respiratory Rate 16 01/25/25 18:13 Blood Pressure 123/91 H 01/25/25 18:13 Pulse Oximetry 96 01/25/25 18:13 Oxygen Delivery Room Air 01/25/25 14:07 <Portia Serrano PA-C - Last Filed: 01/25/25 17:47> Vital Signs Temperature 36.4 C L 01/25/25 14:07 Pulse Rate 65 01/25/25 14:07 Respiratory Rate 16 01/25/25 14:07 Blood Pressure 136/71 01/25/25 14:07 Pulse Oximetry 100 01/25/25 14:07 Oxygen Delivery Room Air 01/25/25 14:07 Temperature 36.7 C 01/25/25 15:51 Pulse Rate 74 01/25/25 18:13 Respiratory Rate 16 01/25/25 18:13 Blood Pressure 123/91 H 01/25/25 18:13 Pulse Oximetry 96 01/25/25 18:13 Oxygen Delivery Room Air 01/25/25 14:07 <Hany Arteaga MD - Last Filed: 01/25/25 19:25> MDM MDM Narrative Medical decision making narrative: MSE by OSVALDO in triage <Portia Serrano PA-C - Last Filed: 01/25/25 17:47> Differential Diagnosis Differential Diagnosis: Prescriber, hypertensive urgency, ACS, pulmonary embolism, vertigo, intracranial hemorrhage, Laboratory studies were obtained on the patient showed a CBC within normal limits 0 hour 3 hour troponin were negative D-dimer was negative as well CT head was negative chest x-ray showed no focal infiltrate EKG showed no acute ischemic changes and no dysrhythmia <Hany Arteaga MD - Last Filed: 01/25/25 19:25> Lab Data Result diagrams: 01/25/25 14:14 01/25/25 14:14 <Portia Serrano PA-C - Last Filed: 01/25/25 17:47> Labs: Lab Results 01/25/25 01/25/25 01/25/25 Range/Units 14:14 14:15 17:07 WBC 8.2 (4.5-10.0) K/mm3 RBC 4.20 (4.2-5.4) M/mm3 Hgb 12.5 (12.0-15.0) g/dL Hct 38.2 (37.0-47.0) % MCV 91.0 (80-100) fl MCH 29.8 (26-34) pg MCHC 32.7 (32-36) g/dl RDW 11.8 (11.5-14.5) % Plt Count 414 H (150-375) k/mm3 MPV 8.5 (7.4-10.4) fl Immature Gran % (Auto) 0.5 (0-0.5) % Neut % (Auto) 39.1 L (45.5-73.1) % Lymph % (Auto) 44.1 (18.3-44.2) % Madison % (Auto) 8.6 H (2.6-8.5) % Eos % (Auto) 6.8 H (0-4.4) % Baso % (Auto) 0.9 (0.2-1.2) % Lymph # (Auto) 3.61 H (0.9-3.2) K/mm3 Madison # (Auto) 0.7 H (0.1-0.6) K/mm3 Eos # (Auto) 0.6 H (0-0.3) K/mm3 Baso # (Auto) 0.1 (0.0-0.1) K/mm3 Abs Immat Gran (auto) 0.04 H (0.00-0.031) K/mm3 Absolute Neuts (auto) 3.2 (1.3-6.7) K/mm3 Absolute Nucleated RBC 0.000 (0.0-0.012) K/mm3 Nucleated RBC % 0.0 (0.0-0.2) % PT 12.9 (11.1-14.7) Seconds INR 1.0 APTT 29.4 (22.3-36.8) Seconds D-Dimer < 0.27 (<0.48) ug/mL Sodium 135 L (137-145) mmol/L Potassium 3.8 (3.4-5.0) mmol/L Chloride 102 (98-107) mmol/L Carbon Dioxide 27 (22-30) mmol/L Anion Gap 6 (4-12) mmol/L BUN 11 (7-17) mg/dL Creatinine 0.73 (0.7-1.0) mg/dL Estim Creat Clear Calc 78 ml/min Estimated GFR > 60 (59 - ) Glucose 119 H (65-110) mg/dL Calcium 9.3 (8.4-10.2) mg/dL Magnesium 2.1 (1.6-2.3) mg/dL Total Bilirubin 0.3 (0.2-1.3) mg/dL AST 27 (14-36) U/L ALT 18 (6-35) U/L Alkaline Phosphatase 83 (38-126) U/L Troponin I < 0.012 < 0.012 (0.000-0.034) ng/mL Total Protein 7.8 (6.3-8.2) g/dL Albumin 4.5 (3.5-5.1) g/dL Lipase 151 (23-300) U/L <Portia Serrano PA-C - Last Filed: 01/25/25 17:47> Lab Results 01/25/25 01/25/25 01/25/25 Range/Units 14:14 14:15 17:07 WBC 8.2 (4.5-10.0) K/mm3 RBC 4.20 (4.2-5.4) M/mm3 Hgb 12.5 (12.0-15.0) g/dL Hct 38.2 (37.0-47.0) % MCV 91.0 (80-100) fl MCH 29.8 (26-34) pg MCHC 32.7 (32-36) g/dl RDW 11.8 (11.5-14.5) % Plt Count 414 H (150-375) k/mm3 MPV 8.5 (7.4-10.4) fl Immature Gran % (Auto) 0.5 (0-0.5) % Neut % (Auto) 39.1 L (45.5-73.1) % Lymph % (Auto) 44.1 (18.3-44.2) % Madison % (Auto) 8.6 H (2.6-8.5) % Eos % (Auto) 6.8 H (0-4.4) % Baso % (Auto) 0.9 (0.2-1.2) % Lymph # (Auto) 3.61 H (0.9-3.2) K/mm3 Madison # (Auto) 0.7 H (0.1-0.6) K/mm3 Eos # (Auto) 0.6 H (0-0.3) K/mm3 Baso # (Auto) 0.1 (0.0-0.1) K/mm3 Abs Immat Gran (auto) 0.04 H (0.00-0.031) K/mm3 Absolute Neuts (auto) 3.2 (1.3-6.7) K/mm3 Absolute Nucleated RBC 0.000 (0.0-0.012) K/mm3 Nucleated RBC % 0.0 (0.0-0.2) % PT 12.9 (11.1-14.7) Seconds INR 1.0 APTT 29.4 (22.3-36.8) Seconds D-Dimer < 0.27 (<0.48) ug/mL Sodium 135 L (137-145) mmol/L Potassium 3.8 (3.4-5.0) mmol/L Chloride 102 (98-107) mmol/L Carbon Dioxide 27 (22-30) mmol/L Anion Gap 6 (4-12) mmol/L BUN 11 (7-17) mg/dL Creatinine 0.73 (0.7-1.0) mg/dL Estim Creat Clear Calc 78 ml/min Estimated GFR > 60 (59 - ) Glucose 119 H (65-110) mg/dL Calcium 9.3 (8.4-10.2) mg/dL Magnesium 2.1 (1.6-2.3) mg/dL Total Bilirubin 0.3 (0.2-1.3) mg/dL AST 27 (14-36) U/L ALT 18 (6-35) U/L Alkaline Phosphatase 83 (38-126) U/L Troponin I < 0.012 < 0.012 (0.000-0.034) ng/mL Total Protein 7.8 (6.3-8.2) g/dL Albumin 4.5 (3.5-5.1) g/dL Lipase 151 (23-300) U/L <Hany Arteaga MD - Last Filed: 01/25/25 19:25> Imaging Data Radiologist's impression: ITS Impressions Chest X-Ray 01/25/25 14:29 Impression: No acute cardiopulmonary abnormality. Head CT 01/25/25 17:59 IMPRESSION: 1. No acute intracranial lesions in the limited noncontrast CT head. 2. Moderate sinusitis involving right maxillary sinus and ethmoid sinuses. <Portia Serrano PA-C - Last Filed: 01/25/25 17:47> ITS Impressions Chest X-Ray 01/25/25 14:29 Impression: No acute cardiopulmonary abnormality. Head CT 01/25/25 17:59 IMPRESSION: 1. No acute intracranial lesions in the limited noncontrast CT head. 2. Moderate sinusitis involving right maxillary sinus and ethmoid sinuses. <Hany Arteaga MD - Last Filed: 01/25/25 19:25> Discharge Plan Discharge Clinical Impression: Palpitations, Dizziness, Hypertension <HOMA Dawson Last Filed: 01/25/25 17:47> Patient Disposition: Home <HOMA Dawson Last Filed: 01/25/25 17:47> Condition: Stable <HOMA Dawson Last Filed: 01/25/25 17:47> Instructions: Antibiotic Form, Heart Palpitations (ED), Hypertension (ED), Dizziness (ED) <HOMA Dawson Last Filed: 01/25/25 17:47> Patient Language: Arabic <HOMA Dawson Last Filed: 01/25/25 17:47> Prescriptions: No Action cetirizine 10 mg tablet 10 mg PO DAILY Patient Comments: no longer taking estradiol-norethindrone acet [Activella] 1-0.5 mg tablet 1 tablet PO DAILY levothyroxine 125 mcg tablet 125 mcg PO DAILY Qty: 90 1RF losartan 100 mg tablet 100 mg PO DAILY Qty: 90 1RF albuterol sulfate 90 mcg/actuation HFA aerosol inhaler 1 inh inhalation Q4H PRN (Reason: shortness of breath or wheezing) Qty: 6.7 2RF Aimovig Autoinjector 140 mg/mL auto-injector 140 mg SUBCUT MONTHLY Rx Instructions: take on the 10th of the month cholecalciferol (vitamin D3) [Vitamin D3] 50 mcg (2,000 unit) Capsule 50 mcg PO DAILY magnesium 200 mg tablet 400 mg PO DAILY montelukast [Singulair] 10 mg tablet 10 mg PO DAILY Qty: 90 1RF venlafaxine 150 mg capsule,extended release 24hr 150 mg PO DAILY Qty: 90 1RF atenolol 25 mg tablet 25 mg PO DAILY Qty: 90 1RF alprazolam 0.5 mg tablet 0.5 mg PO BID PRN (Reason: Anxiety) 30 Days Qty: 60 0RF <HOMA Dawson Last Filed: 01/25/25 17:47> Follow-up/Referrals: Zhang Clemons MD [Primary Care Provider, Family Practice] <Portia Serrano PA-C - Last Filed: 01/25/25 17:47> Time of Disposition: 19:25 <Portia Serrano PA-C - Last Filed: 01/25/25 17:47> 19:25 <Hany Arteaga MD - Last Filed: 01/25/25 19:25>
[2025-01-25 17:21] VITALS: BP 152/67; PULSE 84; RESP 16; O2SAT 100
[2025-01-25 17:50] LABS: Troponin I < 0.012 ng/mL (0.000-0.034)
[2025-01-25 18:13] VITALS: BP 123/91; PULSE 74; RESP 16; O2SAT 96
[2025-01-25 18:19] LABS: Magnesium 2.1 mg/dL (1.6-2.3)
--- OUTSIDE RECORDS SUMMARY | 2025-01-25 18:24 | XMS_ITS | Clinical Summary ---
Author Organization [facility] Address [address] [place] [address] Care Team Providers Care Wine Master Name Role Phone Danielle Stewart MD Primary Care Provider Source Comments [facility],non-owned Affiliates and Associated Physician Practices is amultiple site organization consisting of ambulatory clinics and hospital sitesin [place], [place], [place] and [place]. This disclosure is being madepursuant to the Care Everywhere program and may not contain all information available regarding this patient. 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
--- OUTSIDE RECORDS SUMMARY | 2025-01-25 18:24 | XMS_ITS | Clinical Summary ---
Author Organization [facility] Address [address] [place] [address] Phone Care Team Providers Care Media Planner / Buyer Name Role Phone Zhang Clemons MD Primary Care Provider [phone] Allergies Active Allergy Reactions Criticality Noted Date [...] Encounters Date Type Department Care Team Description 01/22/2025 External Device Data [facility] ABSTRACTION Provider, Abstract 01/01/2025 External Device Data [facility]STRACTION Provider, Abstract 12/12/2024 External Device Data [facility]STRACTION Provider, [...] Description 10/25/2025 9:30 AM CDT Office Visit [facility] Neurology [address] [place] [address] Myah Bañuelos MD [address] [address] Health Maintenance Due Date Last [...] 2020 INFLUENZA VACCINE (#1) 2024 11/15/2019 Insurance [facility] Care Teams Media Planner / Buyer Relationship Specialty Start Date End Date Zhang Clemons MD [address] [place] [address] [place] [id number] PCP - General Family Practice 05/23/18
--- OUTSIDE RECORDS SUMMARY | 2025-01-25 18:24 | XMS_ITS | Clinical Summary ---
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 Gender Identity Not on file Sexual Orientation Not on file Last Filed Vital Signs Vital Sign Reading Time Taken Comments Blood Pressure 121/83 04/29/2020 1:29 PM CDT Pulse 80 04/29/2020 1:29 PM CDT Temperature 36.8 C (98.2 F) 04/29/2020 1:29 PM CDT Respiratory Rate 18 01/16/2020 12:20 PM PRODUCT MANAGER FINANCIAL SERVICES Oxygen Saturation 98% 01/16/2020 12:20 PM PRODUCT MANAGER FINANCIAL SERVICES Inhaled Oxygen Concentration - - Weight 68.2 kg (150 lb 6.4 oz) 04/29/2020 1:29 P M CDT Height 160 cm (5' 3) 04/29/2020 1:29 PM CDT Body Mass Index 26.64 04/29/2020 1:29 PM CDT Plan of Treatment Not on file Insurance [employer]ETNA SIG [id number] Advance Directives For more information, please contact: [phone] * Full Code (Latest Code Status on File) Date Activated Date Inactivated Comments 01/16/2020 9:26 AM 01/16/2020 5:15 PM Care Teams Set Up Mechanic Stamping Machines Relationship Specialty Start Date End Date Zhang Clemons MD [address] [place] [address] PCP - General Family Medicine 12/28/19
--- OUTSIDE RECORDS SUMMARY | 2025-01-25 18:24 | XMS_ITS | Clinical Summary ---
Author Organization [facility] Address [address] [place] [id number] Care Team Providers Care Crumb Packer Name Role Phone Unavailable Primary Care Provider [...]
--- OUTSIDE RECORDS SUMMARY | 2025-01-25 18:24 | XMS_ITS | Encounter Summary ---
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
--- OUTSIDE RECORDS SUMMARY | 2025-01-25 18:24 | XMS_ITS | Clinical Summary ---
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
[2025-01-25 19:33] VITALS: BP 135/69; PULSE 74; RESP 20; TEMP 36.7; O2SAT 95
== END 2025-01-25 19:31 | disposition home or self-care (01) ==
PROVIDERS: Physician Assistant; Emergency Provider Emergency Medicine; PCP Family Medicine
DX: I10 Essential (primary) hypertension (principal); R42 Dizziness and giddiness; R00.2 Palpitations; E03.9 Hypothyroidism, unspecified; E78.2 Mixed hyperlipidemia; J45.909 Unspecified asthma, uncomplicated; F41.8 Other specified anxiety disorders; Z87.891 Personal history of nicotine dependence; Z90.49 Acquired absence of other specified parts of digestive tract; R94.31 Abnormal electrocardiogram [ECG] [EKG]; I45.10 Unspecified right bundle-branch block; J32.0 Chronic maxillary sinusitis; J32.2 Chronic ethmoidal sinusitis
CPT/HCPCS: 36415; 70450; 71046; 80053; 83690; 83735; 84484; 85025; 85380; 85610; 85730; 93005; 99284